=== PATIENT | female | born 1975 | race Caucasian/White ===

== ENCOUNTER → 2017-07-30 11:08 | Outpatient (CLI) | payer MEDICAID, SELFPAY ==
--- NOTE | 2017-07-30 11:08 | MRI_ITS ---
STUDY: MRI LEFT KNEE REASON FOR EXAM: Knee pain and instability. Previous cartilage surgery 21 years ago. TECHNIQUE: Standardized fat and water weighted pulse sequences were obtained in all 3 orthogonal planes. COMPARISON: Radiographs 12/23/2016. FINDINGS: There may be a small subtle horizontal tear of the inferior articular surface of the posterior horn of the medial meniscus, identified only on a single slice (proton-density sagittal image 12). Normal hyaline cartilage of the medial femorotibial compartment. There are small marginal osteophytes of the medial femorotibial compartment. Normal medial femoral condyle and tibial plateau. Normal medial collateral ligamentous complex (MCL). Normal distal semimembranosus, gracilis and semitendinosus tendons. There is attrition of the anterior horn of the lateral meniscus suggestive of partial lateral meniscectomy. There is a small complex tear of the free margin of the posterior horn of the lateral meniscus (proton-density sagittal images 28-30). There is arthrosis of the lateral femorotibial compartment with small marginal osteophytes and partial-thickness chondral loss (T2 sagittal image 17). Normal lateral femoral condyle and tibial plateau. Normal proximal tibiofibular articulation. Normal lateral collateral (fibular) ligament. Normal popliteus tendon. Normal biceps femoris tendon. There is mild intrasubstance mucoid degeneration of the anterior cruciate ligament (T2 sagittal images 12, 13) without focal discontinuity of the ligament. Normal posterior cruciate ligament (PCL). Normal congruent patellofemoral articulation. There is intermediate grade chondromalacia of the inferior aspect of the lateral patellar facet (T2 axial image 10) with a very small subchondral cyst. Normal medial and lateral patellar retinaculum. Normal visualized quadriceps tendon. Normal patellar tendon. There is mild postoperative scarring in Hoffa's fat pad. There is a small joint effusion. The soft tissues are unremarkable. The otherwise visualized osseous structures are unremarkable. MRI/Lower Ext Joint Only (Routine) IMPRESSION: Arthrosis of the lateral femorotibial compartment. Partial lateral meniscectomy with small recurrent tear of the posterior horn of the lateral meniscus. There may be a small subtle medial meniscal tear, identified only on a single slice. Chondromalacia patellae. Small joint effusion. Electronically Signed: Maco Saldaña MD at 13:01 EST Tel , Service support ,
== END ==
PROVIDERS: Visit Provider Orthopaedic Surgery
DX: M23.92 Unspecified internal derangement of left knee (principal)
CPT/HCPCS: 73721

== ENCOUNTER → 2017-08-11 14:00 | Outpatient (CLI) | payer MEDICAID, SELFPAY ==
--- NOTE | 2017-08-11 14:03 | RAD_ITS ---
STUDY: LEG LENGTH SCANOGRAM. REASON FOR EXAM: Female, 42 years old. Left knee pain. TECHNIQUE: Standing views of both lower extremities were performed. COMPARISON: None. FINDINGS: There is no evidence of leg length discrepancy. RAD/Bone Length IMPRESSION: No evidence of leg length discrepancy. Electronically Signed: Lloyd Ruiz MD at 13:39 EST Tel [phone], Service support ,
== END ==
PROVIDERS: Visit Provider Orthopaedic Surgery
DX: M25.562 Pain in left knee (principal)
CPT/HCPCS: 77073

== ENCOUNTER 2017-09-02 10:30 | Observation (INO) | payer MEDICAID, SELFPAY ==
[2017-09-02] VITALS (11 sets, daily range): BP systolic 136–156; BP diastolic 88–103; PULSE 88–130; RESP 16–20; TEMP 36.2–36.8; O2SAT 94–100; BMI 39.7
--- NOTE | 2017-09-02 06:58 | RAD_ITS ---
STUDY: X-RAY - LEFT KNEE REASON FOR EXAM: Female, 42 years old. Recent postoperative left knee. Partial lateral meniscectomy with small recurrent lateral meniscus posterior horn tear. TECHNIQUE: 2 view(s) of the knee. COMPARISON: Intraoperative fluoroscopic spot images left knee 09/02/2017. Correlation leg length study 08/11/2017. FINDINGS: Extensive distal femoral postsurgical changes include lateral metal sideplate with numerous threaded metal cortical screws transfixing distal fibular fracture partially filled with high density widely which appears wider laterally than medially with oblique orientation, appears stable. Fairly severe lateral and moderate medial/patellar femoral compartmental narrowing and moderate subchondral sclerosis noted. Postsurgical soft tissue changes include moderate soft tissue swelling/hematoma and mild subcutaneous emphysema involving lateral compartment near the distal femur. No radiopaque foreign body identified. RAD/Knee 1 or 2 Views IMPRESSION: Postsurgical changes left knee as described. Please see surgeon's operative note for additional details. Electronically Signed: Tano Flood, at 16:04 EDT Tel , Service support ,
[2017-09-02 08:40] LABS: Internal QC Validated? YES +Cl - CLEAR BKGD; Pregnancy, Urine Negative Negative
[2017-09-02] MEDS: oxyCODONE HCl Cr 10 MG Tablet PO (08:47)
[2017-09-02 09:09] LABS: Thyroid Stim Hormone (TSH) 2.99 uIU/mL (0.358-3.74)
--- NOTE | 2017-09-02 09:55 | RAD_ITS ---
STUDY: X-RAY - LEFT KNEE REASON FOR EXAM: Female, 42 years old. Intraoperative assessment TECHNIQUE: Two view(s) of the knee were obtained. COMPARISON: December 23, 2016 FINDINGS: There are a plate and screws along the distal shaft of the femur. There are surgical changes in the distal shaft of the femur. Air is present in the surrounding soft tissues. Fluoroscopy time 39 seconds. Accumulative dose 6.09 mGy. RAD/Knee 1 or 2 Views IMPRESSION: Limited views of the left knee were obtained intraoperatively. Electronically Signed: Kay Enrique MD at 13:48 EDT Tel Direct: [phone], Service support ,
[2017-09-02] MEDS: Cefazolin 2 GM in 0.9% Normal Saline 100 ML IV (11:05)
--- NOTE | 2017-09-02 13:45 | OP.PN_ITS ---
Immediate Post-Op Note Date of Procedure: 09/02/17 Primary Surgeon/Physician: Uday Scherer DO senior analytical chemist: Christi Mayers Pre-Operative Diagnosis: Left knee lateral compartment arthrosis and internal derangement of the knee. Post-Operative Diagnosis: Same as above Surgery/Procedure Performed:: Left knee arthroscopy with abrasion chondroplasty of the lateral femoral condyle, open distal femoral osteotomy Description of Surgical Findings:: See dictation Estimated Blood Loss: 50 Specimen's removed: None Type of Anesthesia:: General ASA Class: ASA1 Normal Healthy Patient - Admit VTE Documentation VTE Present on Admission: No VTE Mechan Device Prophylaxis: SCD's, Knee High SELINA Hose VTE Pharm Prophylaxis ordered?: Yes
--- NOTE | 2017-09-02 13:53 | OP.PCM_ITS ---
Report of Operation Date of Procedure: 09/02/17 Pre-Operative Diagnosis: Left knee lateral compartment arthrosis and internal derangement of the knee. Post-Operative Diagnosis: Same as above Surgery/Procedure Performed:: Left knee arthroscopy with abrasion chondroplasty of the lateral femoral condyle, open distal femoral osteotomy Description of Surgical Findings:: 42-year-old female with valgus malalignment and degenerative arthrosis of the lateral compartment. Having failed conservative measures my recommendation was for diagnostic knee scope evaluation lateral compartment and probable distal femoral osteotomy with cartilage catholic procedure in a staged timeframe. Patient agreed to the aforementioned procedure having failed conservative measures. She is met in the holding area with a left lower extremity was marked and identified by the with surgeon. Patient was taken to the operating room in satisfactory condition with somewhat to place to identify patient operative procedure and limb. Patient received 2 g of Ancef. A well-placed tourniquet to left proximal thigh. Patient was then prepped and draped in the usual fashion. Left lower extremity was elevated Esmarch used for exsanguination and tourniquet was increased to 250 mmHg for roughly 90 minutes. Initial diagnostic scope was undertaken. Anterolateral portal was established and we entered into the intra-articular space. There was no return effusion. Superior lateral outflow portal was then created. Diagnostic scope should the patient have grade 2 and grade III chondromalacia globally around the patella but no significant loose fragments could be appreciated. Much of it was fissure formation. Her trochlea showed grade 2 changes. Removed in the lateral compartment and you could see a lateral osteophyte off the femoral condyle although mild. Her popliteal hiatus was otherwise normal. Then moved in the medial compartment established anteromedial portal. Diagnostic evaluation the medial compartment showed the meniscus to be pristine. She had grade 2 changes across the femoral condyle and grade 1 changes across the tibial plateau. Otherwise the overall continuity the cartilage is well- maintained. The patient showed a partial ACL disruption to the anterior bundle but the overall continuity of the fibers was intact and so was preserved. The loose fragments were gently debrided using mechanical shaver. We then moved to the lateral compartment. The patient showed a large area of cartilage loss from around 15? knee flexion to about 70? of knee flexion. It really was moving from the middle the lateral third of the area. I measured 1 large focal area to be roughly 20 mm from superior to inferior and about 15 mm from medial to lateral. The loose edges were debrided. I then performed a abrasion chondroplasty through that area to try to stimulate some new cartilage formation. I did not want to overly perform an aggressive procedure as I felt the lesion size was too large for microfracture and the cartilage mobley relatively thin to the lateral aspect of the condyle not providing a inadequate contained lesion. Her meniscus was otherwise stable and showed no significant pathology. The popliteal hiatus was normal. The patient showed grade III chondromalacia to the central posterior aspect of the lateral femoral condyle. This was gently debrided of any loose cartilage as well. Upon completion of the scope the scope was retracted and the portal sites closed with 3-0 nylon. We then turned our attention to the open distal femoral osteotomy. Patient had a longitudinal incision made from the lateral condyle moving proximal. The IT band was identified and longitudinally split. And the vastus lateralis was then peeled off of the remnant portion of the IT band and then elevated in a subperiosteal fashion from proximal to distal. We used a quadriceps protecting Hohmann superiorly and a secondary protective R Alexander inferiorly in anticipation of our femoral cut. Plate was temporarily identified to be in adequate position distally to allow for appropriate bone coverage and to avoid the osteotomy being near the patellofemoral joint of the trochlea. Initial guidewire was passed towards the medial epicondyle using standard technique. Parallel wire was then placed through the cutting plate. We then performed our standard osteotomy using sagittal saw initially and then completing it using standard osteotome technique with C-arm visualization the AP plane. Upon completion of our cut the osteotomy yelena was then introduced to gently plastic deformation the medial cortex. We dilated to roughly 7 mm which was my preoperative templating. At that point time a fresh frozen tricortical wedge was prepared in order to place within our defect site and again was roughly 7 mm in overall diameter. This allowed for maintenance of the osteotomy and subsequent placement of the plate using standard AO technique. It was fixed distally with cortical screws with locking technique and then proximally with bicortical screw fixation. We placed one locking screw within the center hole which allowed for a 90? plate angle. Upon completion and evaluation of both AP and lateral planes, was found in good position osteotomy site was well aligned and we subsequently placed calcium phosphate cement within her cortical defect site at the osteotomy under C-arm visualization. This was allowed to cure using standard technique. The wound was then copiously irrigated multiple times throughout the procedure. We then reapproximated the IT band with [id number] technique using 0 Vicryl.. Soft tissues were reapproximated first deep to the fat layer with 0 Vicryl. Subcu tissue with 2-0 Vicryl running subicular Monocryl and Dermabond application. Standard dressing was then applied. Tourniquet was let down during final closure at 90 minutes. I was scrubbed and available time during our procedure. We had no drains or complications. Implants included the Arthrex contour plate distal first femoral osteotomy system. Again we used a standard screw fixation through their system. Patient be admitted floor for 24 hours of IV antibiotics appropriate IV and p.o. pain medication. Patient will be touchdown weightbearing for 4 weeks partial weightbearing for 4 and then advanced from there. Brace is locked in extension at this time. Any major issues please contact me. child development teacher: Christi Mayers Type of Anesthesia:: General Specimen's removed: None Estimated Blood Loss (mL): 50 Grafts/Implants Used: Arthrex distal femoral osteotomy contour plate system - Complications none - Admit VTE Documentation VTE Present on Admission: No VTE Mechan Device Prophylaxis: SCD's, Knee High SELINA Hose VTE Pharm Prophylaxis ordered?: Yes
[2017-09-02] MEDS: Ketorolac 15 MG/ML Vial IV (14:27)
[2017-09-02] MEDS: Venlafaxine XR 150 MG Capsule PO (17:09)
[2017-09-02] MEDS: Gabapentin 300 MG Capsule PO (17:09)
[2017-09-02] MEDS: oxyCODONE 5 MG Tablet 10 MG PO (18:08)
[2017-09-02] MEDS: Cefazolin 1 GM/50 ML BAG IV (18:08)
[2017-09-02] MEDS: 0.9% NaCl Peripheral Flush Adult/Peds IV (18:08)
[2017-09-02] MEDS: Budesonide Respules 0.5 MG/2 ML AMPUL.NEB. INHALATION (19:59)
[2017-09-02] MEDS: Albuterol 2.5 MG/3 ML VIAL.NEB. INHALATION (19:59)
[2017-09-02] MEDS: Montelukast 10 MG Tablet PO (21:10)
[2017-09-02] MEDS: Aspirin 325 MG Tablet PO (21:10)
[2017-09-02] MEDS: Acetaminophen 325 MG Tablet 650 MG PO (21:15)
--- NOTE | 2017-09-02 22:17 | NURSING ---
pt reported that scopolamine patch removed per pt request. she said it is very itchy
[2017-09-03] MEDS: oxyCODONE 5 MG Tablet 10 MG PO ×2 (01:00→11:18)
--- NOTE | 2017-09-03 01:02 | NURSING ---
pt only wants 1 oxyir
[2017-09-03 02:10] VITALS: BP 134/87; PULSE 121; RESP 17; TEMP 36.4; O2SAT 96
[2017-09-03] MEDS: Cefazolin 1 GM/50 ML BAG IV (02:31)
[2017-09-03] MEDS: Morphine 2 MG/ML Syringe IV (02:36)
[2017-09-03] MEDS: Levothyroxine 100 MCG Tablet PO (05:41)
[2017-09-03] MEDS: Acetaminophen 325 MG Tablet 650 MG PO (05:43)
[2017-09-03 07:01] VITALS: PULSE 112; RESP 20; O2SAT 96
[2017-09-03] MEDS: Budesonide Respules 0.5 MG/2 ML AMPUL.NEB. INHALATION (07:01)
[2017-09-03] MEDS: Albuterol 2.5 MG/3 ML VIAL.NEB. INHALATION (07:01)
--- NOTE | 2017-09-03 07:55 | PCM.PN.ORT ---
Subjective: Postop day 1 status post left knee arthroscopy with an open distal femoral osteotomy for lateral compartment arthrosis. Patient actually doing very well at this time. Patient currently eating and upright. Patient states that she has been to the bathroom and upright with her walker. Patient did have a block so I do not know if it is a product of the anesthetic block or if she is just really doing that well. No other fevers chills nausea vomiting chest pain or shortness of breath. Patient willing to go home at this time when meets criteria. - Physical Exam General: Alert, Oriented x3, Cooperative, No apparent distress Musculoskeletal: - - Distally neurovascular intact. EHL anterior gastrocsoleus peroneals 5 out of 5. Dressing and brace in place. Hardware otherwise well seated well-placed. Lab values remain stable. Vital signs remained stable. sCDs and teds in place. Vital Signs Temp Pulse Resp BP Pulse Ox 97.5 F L 121 H 17 134/87 H 96 09/03/17 02:10 09/03/17 02:10 09/03/17 02:10 09/03/17 02:10 09/03/17 02:10 Oxygen Flow Rate (L/min) 1 Oxygen Delivery Method Room Air Weight: 269 lb 6.478 oz Body Mass Index (BMI) 39.7 Intake and Output for Last 24 Hours 09/01/17 09/02/17 09/03/17 23:59 23:59 23:59 Intake Total 2300 / 2300 1650 / 1650 Balance 2300 / 2300 1650 / 1650 Laboratory Tests Past 24 Hrs 09/02/17 09/02/17 08:20 08:38 TSH 2.99 Urine Test Negative Medical Necessity - Tobacco Use Smoking Status: Never smoker Assessment/Plan Assessment: After orthopedics status post left knee arthroscopy and subsequent open distal femoral osteotomy for lateral compartment arthrosis. Patient is doing well. Plan: At this point time patient appears to be doing very well. Await physical therapy evaluation for mobilization. Patient is touchdown weightbearing ?4 weeks. This is been explained to the patient and she was aware prior to operative intervention. I did tell the patient that she needs to be cautious that the block may wear off and she has increased pain. My recommendation is that she continue to take her pain medication every 4-6 hours of that is in her system so that when the block does start to proceed she is not behind the curve in terms of pain management. Patient otherwise is appropriate for discharge when meets criteria. Her medications we sent down to the [place] pharmacy for either pickup or delivery. Patient will follow me in 2 weeks. Any major issues please contact me.
--- NOTE | 2017-09-03 07:58 | PCM.DC.ORTHO ---
Discharge Activity: Return to Normal Activity, May not drive while taking narcotic pain medications., May Shower, Use Walker May shower in (days): 1 May resume sexual activity in: 8 weeks Ice area for (Minutes): 20 - Use ice machine as needed Weight Bearing Status: Toe touch weight bearing Keep extremity elevated above heart level: Left Leg Additional Activity Instructions:: May remove brace to bend knee to 90? 3 times per day passively. Patient may keep brace on and simply open it to 90? if desired. Brace will then need to be locked out remaining. Patient may shower with brace off but needs to be very cautious with slippery prevention. Call your doctor if your incision/area has: Continuous Slow Oozing, Sudden Increased Bleeding, Increased Pain/ Swelling, Increased Redness, Foul Smelling Discharge, Swelling at the incision site Call your doctor if you observe: Fever of 101 or Higher, Coldness, Increased Pain, Numbness or Tingling, Change in Color, Inability to urinate, Inability to have a bowel movement, Using more than one pad per hour, Shortness of breath, Dizziness, Fainting spells, Swelling in the ankles, Chest pain, Prolonged hiccoughing, Increased palpitations (irregular heartbeat), Calf discomfort, Uncontrolled pain Suture Line Care: Avoid Pulling/Pushing, Avoid Pinching/Bending Change Dressing in (Days):: 1 Remove Dressing in (days):: 1 Cleanse incision/area with: Soap & Water Additional Dressing/Incision Instructions:: Remove dressing to shower postop day 2. Do not submerge wound. May shower however and get wound wet. Replace Nikolay wrap as long as there is no drainage. Please simple gauze pad or ABD pad over drainage area. Wash hands prior to touching wound. Do not let animals touch the wound. Allergies/Adverse Reactions: Allergies No Known Allergies Allergy (Verified 08/26/17 13:26) Medications to take at Discharge Albuterol Inhaler [Ventolin Hfa (SP)] 1 - 2 puff INHALATION Q4H PRN PRN 03/20/17 Celecoxib [Celebrex] 100 mg PO BID 03/20/17 Fluticasone/Salmeterol [Advair 250/50 Mcg Diskus] 1 puff INHALATION BID 03/20/17 Gabapentin [Neurontin] 300 mg PO BID 03/20/17 Levothyroxine [Synthroid] 100 mcg PO DAILY 03/20/17 Loratadine [Claritin] 10 mg PO DAILY 03/20/17 Montelukast [Singulair] 10 mg PO QHS 03/20/17 Omeprazole 40 mg PO QHS 03/20/17 Venlafaxine XR [Effexor Xr] 150 mg PO DAILY 03/20/17 Docusate Sodium [Colace] 100 mg PO BID PRN PRN #10 cap 03/25/17 Hydrocodone Bitart/Apap 5-325 [[place] 5/325] 1 - 2 tab PO Q6H PRN PRN #60 tab 03/25/17 Cyclobenzaprine [Flexeril] 10 mg PO QHS 08/26/17 Aspirin E.C. [Ecotrin] 325 mg PO BID #30 tablet 09/02/17 Docusate Sodium [Colace] 100 mg PO BID PRN PRN #10 capsule 09/02/17 Oxycodone HCl/Acetaminophen [Percocet 5/325] 1 - 2 tablet PO Q4H PRN PRN #60 tablet 09/02/17 proMETHazine tablet [Phenergan] 25 mg PO Q4H PRN PRN #10 tablet 09/02/17 The following prescriptions were given: Oxycodone HCl/Acetaminophen [Percocet 5/325] 1 - 2 tablet PO Q4H PRN PRN #60 tablet PRN Reason: Pain proMETHazine tablet [Phenergan] 25 mg PO Q4H PRN PRN #10 tablet PRN Reason: Nausea Docusate Sodium [Colace] 100 mg PO BID PRN PRN #10 capsule PRN Reason: Constipation Aspirin E.C. [Ecotrin] 325 mg PO BID #30 tablet Primary Care Physician: Care Physician,No Primary [Primary Care Provider] - Please Follow Up With: Uday Scherer DO When: Call [facility] for appointment for 2 weeks. Proposed Discharge Date: 09/03/17
--- NOTE | 2017-09-03 08:01 | DCINST_ITS ---
Discharge Activity: Return to Normal Activity, May not drive while taking narcotic pain medications., May Shower, Use Walker May shower in (days): 1 May resume sexual activity in: 8 weeks Ice area for (Minutes): 20 - Use ice machine as needed Weight Bearing Status: Toe touch weight bearing Keep extremity elevated above heart level: Left Leg Additional Activity Instructions:: May remove brace to bend knee to 90? 3 times per day passively. Patient may keep brace on and simply open it to 90? if desired. Brace will then need to be locked out remaining. Patient may shower with brace off but needs to be very cautious with slippery prevention. Call your doctor if your incision/area has: Continuous Slow Oozing, Sudden Increased Bleeding, Increased Pain/ Swelling, Increased Redness, Foul Smelling Discharge, Swelling at the incision site Call your doctor if you observe: Fever of 101 or Higher, Coldness, Increased Pain, Numbness or Tingling, Change in Color, Inability to urinate, Inability to have a bowel movement, Using more than one pad per hour, Shortness of breath, Dizziness, Fainting spells, Swelling in the ankles, Chest pain, Prolonged hiccoughing, Increased palpitations (irregular heartbeat), Calf discomfort, Uncontrolled pain Suture Line Care: Avoid Pulling/Pushing, Avoid Pinching/Bending Change Dressing in (Days):: 1 Remove Dressing in (days):: 1 Cleanse incision/area with: Soap & Water Additional Dressing/Incision Instructions:: Remove dressing to shower postop day 2. Do not submerge wound. May shower however and get wound wet. Replace Nikolay wrap as long as there is no drainage. Please simple gauze pad or ABD pad over drainage area. Wash hands prior to touching wound. Do not let animals touch the wound. Allergies/Adverse Reactions: Allergies No Known Allergies Allergy (Verified 08/26/17 13:26) Medications to take at Discharge Albuterol Inhaler [Ventolin Hfa (SP)] 1 - 2 puff INHALATION Q4H PRN PRN Celecoxib [Celebrex] 100 mg PO BID 03/20/17 Fluticasone/Salmeterol [Advair 250/50 Mcg Diskus] 1 puff INHALATION BID Gabapentin [Neurontin] 300 mg PO BID 03/20/17 Levothyroxine [Synthroid] 100 mcg PO DAILY 03/20/17 Loratadine [Claritin] 10 mg PO DAILY 03/20/17 Montelukast [Singulair] 10 mg PO QHS 03/20/17 Omeprazole 40 mg PO QHS 03/20/17 Venlafaxine XR [Effexor Xr] 150 mg PO DAILY 03/20/17 Docusate Sodium [Colace] 100 mg PO BID PRN PRN #10 cap 03/25/17 Hydrocodone Bitart/Apap 5-325 [[place] 5/325] 1 - 2 tab PO Q6H PRN PRN #60 tab Cyclobenzaprine [Flexeril] 10 mg PO QHS 08/26/17 Aspirin E.C. [Ecotrin] 325 mg PO BID #30 tablet 09/02/17 Docusate Sodium [Colace] 100 mg PO BID PRN PRN #10 capsule 09/02/17 Oxycodone HCl/Acetaminophen [Percocet 5/325] 1 - 2 tablet PO Q4H PRN PRN #60 tablet 09/02/17 proMETHazine tablet [Phenergan] 25 mg PO Q4H PRN PRN #10 tablet 09/02/17 The following prescriptions were given: Oxycodone HCl/Acetaminophen [Percocet 5/325] 1 - 2 tablet PO Q4H PRN PRN #60 tablet PRN Reason: Pain proMETHazine tablet [Phenergan] 25 mg PO Q4H PRN PRN #10 tablet PRN Reason: Nausea Docusate Sodium [Colace] 100 mg PO BID PRN PRN #10 capsule PRN Reason: Constipation Aspirin E.C. [Ecotrin] 325 mg PO BID #30 tablet Primary Care Physician: Care Physician,No Primary [Primary Care Provider] - Please Follow Up With: Uday Scherer DO When: Call [facility] for appointment for 2 weeks. Proposed Discharge Date: 09/03/17
[2017-09-03 08:33] VITALS: BP 129/81; PULSE 98; RESP 18; TEMP 37; O2SAT 98
[2017-09-03] MEDS: Loratadine 10 MG Tablet PO (08:46)
[2017-09-03] MEDS: Aspirin 325 MG Tablet PO (08:46)
[2017-09-03] MEDS: Pantoprazole Sodium 40 MG Tablet PO (08:46)
[2017-09-03] MEDS: Gabapentin 300 MG Capsule PO (08:47)
--- NOTE | 2017-09-03 09:45 | CASEMGMT ---
CRISTY JANG Face to Face with patient for initial transition planning/care coordination assessment. CRISTY JANG introduced self and role at [facility]. Patient lying in bed, alert and oriented, at bedside. Patient willing to participate in assessment and is able to answer all questions appropriately. Care providers, pharmacy, and demographics verified. See link attached. Patient wishes to discharge home, denies need for home health at this time. Patient states she has no further needs or concerns at this time. CRISTY JANG called and requested script for crutches and referrral sent to [facility] [place]. CM to follow for discharge planning needs that may arise. Disposition Plan: Patient to discharge home with crutches, family support, and follow-up plans in place.
== END 2017-09-03 11:20 | disposition home or self-care (01) ==
LOC: MS3 10:31
PROVIDERS: Anesthesiology; Admitting Provider Orthopaedic Surgery; Visit Provider Orthopaedic Surgery
PROC: (CPT 29870; principal; 2017-09-02 09:30)
DX: M23.8X2 Other internal derangements of left knee (principal); M17.12 Unilateral primary osteoarthritis, left knee; M94.262 Chondromalacia, left knee; K21.9 Gastro-esophageal reflux disease without esophagitis; F41.9 Anxiety disorder, unspecified; F32.9 Major depressive disorder, single episode, unspecified; Z86.718 Personal history of other venous thrombosis and embolism; Z79.899 Other long term (current) drug therapy; J45.909 Unspecified asthma, uncomplicated; E07.9 Disorder of thyroid, unspecified; Q79.6 Ehlers-Danlos syndromes; G89.29 Other chronic pain
CPT/HCPCS: 27450; 29879; 64447; 73560; 76000; 81025; 84443; 94640; 96365; 96366; 96375; 99218; J7120; A4216; G0378; G0379; J2405

== ENCOUNTER → 2017-09-15 13:00 | Outpatient (CLI) | payer MEDICAID, SELFPAY ==
--- NOTE | 2017-09-15 13:02 | RAD_ITS ---
STUDY: X-RAY - LEFT KNEE REASON FOR EXAM: Female, 42 years old. Pain, post op 2 weeks TECHNIQUE: 4 view(s) of the knee. COMPARISON: 3.27.18 FINDINGS: There is a metal sideplate transfixing the distal femur. There are cortical screws holding the plate in place. Healing fracture of the distal femur. Normal visualized proximal tibia and fibula. Normal proximal tibiofibular articulation. Normal medial femorotibial compartment. There is moderate degenerative arthrosis of the lateral femorotibial compartment with moderate joint space narrowing. Normal patellofemoral articulation. The soft tissue structures are unremarkable. 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 Healing fracture of the distal femur. Orthopedic hardware appears intact. Electronically Signed: Mario Lazcano MD at 17:04 EDT , Service support ,
== END ==
PROVIDERS: Visit Provider Orthopaedic Surgery
DX: M25.562 Pain in left knee (principal)
CPT/HCPCS: 73564

== ENCOUNTER → 2017-10-01 12:51 | Outpatient (CLI) | payer MEDICAID, SELFPAY ==
--- NOTE | 2017-10-01 12:53 | RAD_ITS ---
STUDY: X-RAY - LEFT KNEE REASON FOR EXAM: Female, 42 years old. Knee pain. Injury. Previous surgery. TECHNIQUE: 3 view(s) of the knee. COMPARISON: 09/15/2017. FINDINGS: No definite acute abnormality. Stable appearance of distal femoral osteotomy with compression plate and screws along the lateral distal femoral metaphysis. Fragments are in anatomic alignment and position. RAD/Knee 4 or More Views IMPRESSION: Stable postsurgical changes and no definite acute abnormality. Electronically Signed: Evens Peña MD at 19:53 EDT , Service support ,
== END ==
PROVIDERS: Visit Provider Orthopaedic Surgery
DX: M25.562 Pain in left knee (principal)
CPT/HCPCS: 73564

== ENCOUNTER → 2017-10-15 10:32 | Outpatient (CLI) | payer MEDICAID, SELFPAY ==
--- NOTE | 2017-10-15 10:34 | RAD_ITS ---
STUDY: X-RAY - LEFT KNEE REASON FOR EXAM: Female, 42 years old. POST OP L KNEE OSTEOTOMY TECHNIQUE: 4 view(s) of the knee. COMPARISON: None. FINDINGS: There is a metal sideplate transfixing the distal femur. There are cortical screws holding the plate in place. External fixator has been removed. Alignment is unchanged. Distal femoral osteotomy changes noted. Normal visualized proximal tibia and fibula. Normal proximal tibiofibular articulation. Normal medial femorotibial compartment. Normal lateral femorotibial compartment. Normal patellofemoral articulation. The soft tissue structures are unremarkable. RAD/Knee 4 or More Views IMPRESSION: Postoperative changes as above. There are no acute findings. Electronically Signed: Mario Lazcano MD at 16:49 EDT , Service support ,
== END ==
PROVIDERS: Visit Provider Orthopaedic Surgery
DX: M25.562 Pain in left knee (principal)
CPT/HCPCS: 73564

== ENCOUNTER → 2017-10-27 13:36 | Outpatient (CLI) | payer MEDICAID, SELFPAY ==
--- NOTE | 2017-10-27 13:38 | RAD_ITS ---
XR Knee Complete 4 Views or More INDICATION: post op COMPARISON: October 15, 2017 TECHNIQUE: 4 views of the left knee FINDINGS: There is redemonstration of a distal femoral osteotomy with filling of the osteotomy defect with bone graft material. Lateral screw and plate fixation of the distal femur is noted. The lateral joint compartment is decreased with marginal osteophyte formation, unchanged. The osseous structures are otherwise intact and well aligned. RAD/Knee 4 or More Views IMPRESSION: Status post left distal femoral osteotomy with expected bone grafting and hardware. Degenerative changes at the lateral joint compartment with joint space narrowing and marginal osteophyte formation, unchanged. at 0041 Reported and signed by: Ai De La Vega MD Electronically Signed: Ai De La Vega MD at 0:39 EDT Tel , Service support ,
== END ==
PROVIDERS: Visit Provider Orthopaedic Surgery
DX: M25.562 Pain in left knee (principal)
CPT/HCPCS: 73564

== ENCOUNTER → 2017-12-15 12:48 | Outpatient (CLI) | payer MEDICAID, SELFPAY ==
--- NOTE | 2017-12-15 12:50 | RAD_ITS ---
STUDY: X-RAY BONE LENGTH SURVEY/SCANOGRAM BILATERAL LOWER LEGS REASON FOR EXAM: Female, 42 years old. Leg length discrepancy. Pain. TECHNIQUE: CT scanogram, bilateral lower extremities from the superior margin of the femoral heads through the ankles, in the frontal projection. COMPARISON: X-ray left knee 10/27/2017, 09/02/2017. X-ray left hip 03/05/2017. Prior leg length scanogram of 08/11/2017. FINDINGS: Since the bone length survey of 08/11/2017, the patient now has postsurgical changes of the left distal femur, with plate and screw fixation. The surgical construct appears intact. In each knee, there is mild marginal osteophytic lipping of both the medial and lateral compartments somewhat more prominent in the lateral compartment of the left knee. No significant hip joint degenerative changes are apparent. No significant ankle joint degenerative changes are apparent. Right femur: 50 cm Right tibia: 39.75 Right total length from femoral head to tibial plafond: 89.5 Left femur: 50 cm Left tibia: 39.5 Left total length from femoral head to the tibial plafond: 89.5 RAD/Bone Length IMPRESSION: There is no significant overall leg length discrepancy. Electronically Signed: Sourav Currie, at 15:02 EDT Tel , Service support ,
== END ==
PROVIDERS: Visit Provider Orthopaedic Surgery
DX: M25.562 Pain in left knee (principal)
CPT/HCPCS: 77073

== ENCOUNTER → 2018-01-27 10:48 | Outpatient (CLI) | payer MEDICAID, SELFPAY | PROVIDERS: Visit Provider Orthopaedic Surgery | DX: M25.562 Pain in left knee (principal) | CPT/HCPCS: 73564 ==

== ENCOUNTER → 2018-05-07 10:43 | Outpatient (CLI) | payer MEDICAID, SELFPAY ==
--- NOTE | 2018-05-07 10:45 | RAD_ITS ---
HISTORY: PainRAD - Hip COMPARISON: None FINDINGS: XR Hip Unilateral with Pelvis when performed; 2-3 Views: The sacroiliac and hip joints appear preserved. No fracture or acute disease. No bony erosions. As visualized, the soft tissues are negative. Laminectomy with L5-S1 surgical fusion. RAD/HIP, UNI W/ Pelvis 2-3 Views IMPRESSION: 1. Normal left hip. 2. Laminectomy with L5-S1 surgical fusion. at 0700 Reported and signed by: Milton Torres MD Electronically Signed: Milton Torres, at 6:58 EST Tel , Service support ,
--- OUTSIDE RECORDS SUMMARY | 2018-07-02 13:02 | XMS RPT_ITS ---
:1975 Author Organization OHIP Support Name Relationship Address Phone DANNY GONZÁLES Unavailable [address] + [place] [address] D Unavailable Unavailable Unavailable DANNY GONZÁLES Unavailable [address] + [place] [address] DANNY GONZÁLES Unavailable [address] + [place] [address] D Unavailable Unavailable Unavailable DANNY GONZÁLES Unavailable [address] + [place] [address] D Unavailable Unavailable Unavailable DANNY GONZÁLES Unavailable [address] + [place] [address] DANNY GONZÁLES Unavailable [address] + [place] [address] DANNY GONZÁLES Unavailable [address] + [place] [address] DANNY GONZÁLES Unavailable [address] + [place] [address] DANNY GONZÁLES Unavailable [address] + [place] [address] DANNY GONZÁLES Unavailable [address] + [place] [address] DANNY GONZÁLES Unavailable [address] + [place] [address] DANNY GONZÁLES Unavailable [address] + [place] [address] DANNY GONZÁLES Unavailable [address] + [place] [address] DANNY GONZÁLES Unavailable [address] + [place] [address] NIVIA DANNY Unavailable [address] + [place] [address] D Unavailable Unavailable Unavailable NIVIA DANNY Unavailable [address] + [place] [address] D Unavailable Unavailable Unavailable NIVIA, DANNY Unavailable [address] + [place] [address] NIVIA DANNY Unavailable [address] + [place] [address] NIVIA, DANNY Unavailable [address] + [place] [address] NIVIA DANNY Unavailable [address] + [place] [address] D Unavailable Unavailable Unavailable NIVIA, DANNY Unavailable [address] + [place] [address] D Unavailable Unavailable Unavailable NIVIA DANNY Unavailable [address] + [place] [address] NIVIA DANNY Unavailable [address] + [place] [address] NIVIA DANNY Unavailable [address] + [place] [address] D Unavailable Unavailable Unavailable NIVIA DANNY Unavailable [address] + [place] [address] D Unavailable Unavailable Unavailable NIVIA DANNY Unavailable [address] + [place] [address] D Unavailable Unavailable Unavailable NIVIA DANNY Unavailable [address] + [place] [address] D Unavailable Unavailable Unavailable NIVIA DANNY Unavailable [address] + [place] [address] D Unavailable Unavailable Unavailable NIVIA DANNY Unavailable [address] + [place] [address] D Unavailable Unavailable Unavailable NIVIA DANNY Unavailable [address] + [place] [address] NIVIA DANNY Unavailable [address] + [place] [address] D Unavailable Unavailable Unavailable NIVIA DANNY Unavailable [address] + [place] [address] D Unavailable Unavailable Unavailable NIVIA, DANNY Unavailable [address] + [place] [address] D Unavailable Unavailable Unavailable NIVIA, DANNY Unavailable [address] + [place] [address] D Unavailable Unavailable Unavailable NIVIA, DANNY Unavailable [address] + [place] [address] D Unavailable Unavailable Unavailable NIVIA, DANNY Unavailable [address] + [place] [address] D Unavailable Unavailable Unavailable NIVIA, DANNY Unavailable [address] + [place] [address] D Unavailable Unavailable Unavailable NIVIA, DANNY Unavailable [address] + [place] [address] NIVIA, DANNY Unavailable [address] + [place] [address] NIVIA, DANNY Unavailable [address] + [place] [address] D Unavailable Unavailable Unavailable NIVIA, DANNY Unavailable [address] + [place] [address] NIVIA, DANNY Unavailable [address] + [place] [address] NIVIA, DANNY Unavailable [address] + [place] [address] NIVIA, DANNY Unavailable [address] + [place] [address] NIVIA, DANNY Unavailable [address] + [place] [address] NIVIA, DANNY Unavailable [address] + [place] [address] D Unavailable Unavailable Unavailable NIVIA, DANNY Unavailable [address] + [place] [address] NIVIA, DANNY Unavailable [address] + [place] [address] D Unavailable Unavailable Unavailable NIVIA, DANNY Unavailable [address] + [facility] [place] [address] Care Team Providers Name Role Phone DANNY JOHNSON Attending Unavailable SHABNAM, LOIS Primary Care Unavailable DANNY JOHNSON Attending Unavailable SHABNAM, LOIS Primary Care Unavailable DARIEL LI Attending Unavailable [facility], [facility] Primary Care Unavailable AMIRNENI, HANSEL FOWLER Attending Unavailable CROUCH, [facility] Primary Care Unavailable VIAU, DANNY CAMACHO Attending Unavailable CROUCH, [facility] Primary Care Unavailable CROUCH, DARIELEFRAIN INGRAM Attending Unavailable CROUCH, [facility] Primary Care Unavailable AMIRNENI, HANSEL FOWLER Attending Unavailable CROUCH, [facility] Primary Care Unavailable VIAU, DANNY CAMACHO Attending Unavailable CROUCH, [facility] Primary Care Unavailable VIAU, DANNY CAMACHO Attending Unavailable CROUCH, [facility] Primary Care Unavailable VIAU, DANNY CAMACHO Attending Unavailable CROUCH, [facility] Primary Care Unavailable CROUCH, DARIEL JUAN JOSE Attending Unavailable CROUCH, [facility] Primary Care Unavailable VIAU, DANNY CAMACHO Attending Unavailable CROUCH, [facility] Primary Care Unavailable VIAU, DANNY CAMACHO Attending Unavailable CROUCH, [facility] Primary Care Unavailable CROUCH, DARIEL JUAN JOSE Attending Unavailable CROUCH, [facility] Primary Care Unavailable VIAU, DANNY CAMACHO Attending Unavailable CROUCH, [facility] Primary Care Unavailable VIAU, DANNY CAMACHO Attending Unavailable CROUCH, [facility] Primary Care Unavailable Gilmer DO, Danny S Admitting Unavailable Gilmer DO, Danny S Attending Unavailable Amirneni, Dr. Hansel Espinoza Admitting Unavailable Amirneni, Dr. Hansel Espinoza Attending Unavailable Viau, Dr. Danny Jaramillo Attending Unavailable Viau, Dr. Danny Jaramillo Admitting Unavailable Viau, Dr. Danny Jaramillo Admitting Unavailable Viau, Dr. Danny Jaramillo Attending Unavailable Amirneni, Dr. Hansel Espinoza Admitting Unavailable Amirneni, Dr. Hansel Espinoza Attending Unavailable Menan, Dr. Dariel Griffin Admitting Unavailable Menan, Dr. Dariel Griffin Attending Unavailable Gilmer DO, Danny S Admitting Unavailable Gilmer DO, Danny S Attending Unavailable Menan, Dr. Dariel Griffin Admitting Unavailable Menan, Dr. Dariel Griffin Attending Unavailable Viau, Dr. Danny Jaramillo Attending Unavailable Viau, Dr. Danny Jaramillo Admitting Unavailable Viau, Dr. Danny Jaramillo Attending Unavailable Viau, Dr. Danny Jaramillo Admitting Unavailable VIAU, DANNY Jaramillo Attending Unavailable VIAU, DANNY Jaramillo Referring Unavailable SEBASTIAN MARROQUIN Primary Care Unavailable Danny Scherer Attending Unavailable DOCTOR, OUT OF TOWN Referring Unavailable SEBASTIAN MARROQUIN Primary Care Unavailable Danny Scherer Attending Unavailable Primay Care Physicia, No Primary Care Unavailable Gilmer, Danny Attending Unavailable Primay Care Physicia, No Referring Unavailable Primay Care Physicia, No Primary Care Unavailable Gilmer, Danny Attending Unavailable Primay Care Physicia, No Primary Care Unavailable Gilmer, Danny Attending Unavailable Primay Care Physicia, No Primary Care Unavailable Gilmer, Danny Referring Unavailable Danny Scherer Admitting Unavailable Gilmer, Danny Attending Unavailable Gilmer, Danny Referring Unavailable Primay Care Physicia, No Primary Care Unavailable Danny Scherer Consulting Unavailable Gilmer, Danny Admitting Unavailable Gilmer, Danny Attending Unavailable Gilmer, Danny Referring Unavailable Primay Care Physicia, No Primary Care Unavailable Danny Scherer Consulting Unavailable Gilmer, Danny Attending Unavailable Primay Care Physicia, No Referring Unavailable Primay Care Physicia, No Primary Care Unavailable Gilmer, Danny Attending Unavailable Gilmer, Danny Referring Unavailable Primay Care Physicia, No Primary Care Unavailable Gilmer, Danny Attending Unavailable Primay Care Physicia, No Referring Unavailable Primay Care Physicia, No Primary Care Unavailable Gilmer, Danny Attending Unavailable Gilmer, Danny Referring Unavailable Primay Care Physicia, No Primary Care Unavailable Danny Scherer Attending Unavailable Primay Care Physicia, No Referring Unavailable Primay Care Physicia, No Primary Care Unavailable Gilmer, Danny Attending Unavailable Gilmer, Danny Referring Unavailable Primay Care Physicia, No Primary Care Unavailable Gilmer, Danny Attending Unavailable Primay Care Physicia, No Referring Unavailable Primay Care Physicia, No Primary Care Unavailable Gilmer, Danny Attending Unavailable Gilmer, Danny Referring Unavailable Primay Care Physicia, No Primary Care Unavailable Gilmer, Danny Attending Unavailable Primay Care Physicia, No Referring Unavailable Primay Care Physicia, No Primary Care Unavailable Danny Scherer Attending Unavailable Danny Scherer Referring Unavailable SEBASTIAN MARROQUIN Primary Care Unavailable Emily Lopez Attending Unavailable DOCTOR, OUT OF TOWN Referring Unavailable SEBASTIAN MARROQUIN Primary Care Unavailable Emily Lopez Attending Unavailable Jessica, Emily Referring Unavailable SEBASTIAN MARROQUIN Primary Care Unavailable [place] Cam Attending Unavailable DOCTOR, OUT OF TOWN Referring Unavailable [place] Cam Attending Unavailable [place] Cam Referring Unavailable SEBASTIAN MARROQUIN Primary Care Unavailable Danny Scherer Attending Unavailable DOCTOR, OUT OF TOWN Referring Unavailable PROBLEMS PROBLEMS DATE TYPE CONDITION / CODE ATTENDING STATUS SOURCE 05/14/2018 Admitting Other intervertebral DANNY JOHNSON Active [facility] diagnosis disc degeneration, JANICE Three lumbar region / Repository M51.36(ICD-10) 05/08/2018 Unknown M25.552 - Pain in [place] Cam Active Kevin left hip / Community M25.552(ICD-10) Hospital Repository 04/29/2018 Admitting Other muscle spasm / CROUCH, Active [facility] diagnosis M62.838(ICD-10) DARIEL INGRAM Effie Repository 03/17/2018 Admitting Low back pain / VIAUDANNY [facility] diagnosis M54.5(ICD-10) JANICE Three Repository 02/11/2018 Admitting Pain in thoracic VIAU, DANNY [facility] diagnosis spine / JANICE Effie M54.6(ICD-10) Repository 02/05/2018 Admitting Postlaminectomy VIAU, DANNY [facility]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, not JANICE Three elsewhere classified Repository / M96.1(ICD-10) 01/27/2018 Unknown M25.562 - Pain in [place], Active Kevin left knee / Emily Community M25.562(ICD-10) Hospital Repository 12/17/2017 Admitting Type 2 diabetes CROUCH, [facility] diagnosis mellitus without DARIEL Chou complications / Repository E11.9(ICD-10) 09/30/2017 Admitting Body mass index CROUCH, Active [facility] diagnosis (bmi) 39.0-39.9, DARIEL Chou adult / Repository Z68.39(ICD-10) 08/04/2017 Admitting Kvng-Danlos CROUCH, Active [facility]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 / DARIEL Chou Q79.6(ICD-10) Repository 08/04/2017 Admitting Obstructive sleep CROUCH, Active [facility] diagnosis apnea (adult) DARIEL Chou (pediatric) / Repository G47.33(ICD-10) 10/01/2017 Unknown M17.12 - Unilateral GilmerDanny Active Kevin primary [facility] osteoarthritis, left Hospital knee / Repository M17.12(ICD-10) 09/30/2017 Admitting Obesity, unspecified CROUCH, Active [facility] diagnosis / E66.9(ICD-10) DARIEL Chou Repository 09/30/2017 Admitting Body mass index CROUCH, Active [facility] diagnosis (BMI) 40.0-44.9, DARIEL Chou adult / Repository Z68.41(ICD-10) 08/04/2017 Admitting Essential (primary) CROUCH, Active [facility] diagnosis hypertension / DARIEL Chou I10(ICD-10) Repository 08/04/2017 Admitting Moderate persistent CROUCH, Active [facility] diagnosis asthma, DARIEL Chou uncomplicated / Repository J45.40(ICD-10) 08/04/2017 Admitting Hypothyroidism, CROUCH, Active [facility] diagnosis unspecified / DARIEL Chou E03.9(ICD-10) Repository 01/03/2016 Admitting Bilateral primary CROUCH, [facility] diagnosis osteoarthritis of DARIEL Chou knee / M17.0(ICD-10) Repository 09/15/2017 Unknown M23.8X2 - Other Gilmer, Danny [facility] derangements of left Hospital knee / Repository M23.8X2(ICD-10) 06/25/2017 Admitting Dorsalgia, VIAU, DANNY [facility] diagnosis unspecified / JANICE Effie M54.9(ICD-10) Repository 06/25/2017 Admitting Pain, unspecified / VIAU, [facility] diagnosis R52(ICD-10) JANICEKELLY Chou Repository PROCEDURES PROCEDURES No Procedure Records FoundRESULTS RESULTS OT FUNCTIONAL CAPACITY Observed: 05/26/2018 Status: F Source: [facility] 1:29 PM [facility] REPOSITORY [facility] [address] [place] [address]. [address] [place] [address] Fax REHABILITATION SERVICES INITIAL EVALUATION MR#: [id number] Acct: [id number] Name: NORBERTO BARBER Rep #: [id number] : 1975 42 From: Fanny Hunt OTR/L, CHT Referring Dr.: DANNY JOHNSON Status: REG RCR Insurance: [employer] [facility] Eval Date: SELF PAY INSURANCE HP OT Functional Capacity Eval - Task Lift Floor (Occasional 1-33% of Day): 20# Floor (Frequent 34-66% of Day): 10# Floor (Constant 67-100% of Day): NA Floor PDL: Light Knee (Occasional 1-33% of Day): 20# Knee (Frequent 34-66% of Day): 10# Knee (Constant 67-100% of Day): NA Knee PDL: Light Waist (Occasional 1-33% of Day): 20# Waist (Frequent 34-66% of Day): 10# Waist (Constant 67-100% of Day): NA Waist PDL: Light Shoulder (Occasional 1-33% of Day): 20# Shoulder (Frequent 34-66% of Day): 10# Shoulder (Constant 67-100% of Day): NA Shoulder PDL: Light Overhead (Occasional 1-33% of Day): 10# Overhead (Frequent 34-66% of Day): NA Overhead (Constant 67-100% of Day): NA Overhead PDL: Sedentary - Work Activity/Posture Bending: Occasional Ability (1-33% of day) Comments: Low occasional ability Squatting: Occasional Ability (1-33% of day) Comments: Low occasional ability Kneeling: No Ablility (0% of day) Reaching out: Frequent Ability (34-66% of day) Comments: while sitting Reaching up: Frequent Ability (34-66% of day) Comments: while sitting Sitting: Occasional Ability (1-33% of day) Comments: with shifting body weight Walking: Occasional Ability (1-33% of day) Comments: low occasional ability Standing: Occasional Ability (1-33% of day) Comments: low occasional ability with shifting body weight - Reference Duration Sedentary Sedentary Light Light Light Medium Medium Medium Heavy V mike Heavy Heavy - Patient Information Height: 1.75 m Weight:: 111.13 kg Hand Dominance: Right - Medical History Medical History Including Restrictions: Client states she was in good health until 2007. Client states ten years ago she began having pain in her left knee. Client had multiple conservative knee interventions, but they were not helpful. Client states her left hip dx with bursitis and IT band syndrome dx in 2009 and back pain. Client states she did have a herniated disc in 2012 and in 2012 she had the discectomy. Client did continue to have difficulty and three years ago she had L5-L6 fusion. Client states she recovered well from her back sx. Client states she does exercise in the pool 2x week on her own. Client states in 2016 she underwent left IT band lengthening sx, with fair success. Client states she underwent a left femur osteotomy August 2017. Client feels this sx was successful. Client has been through many physical therapy sessions to rehab. Client states her spine surgeon told her not to lift more than 5-10# but client does not have anything written by her spine surgeon with her at this time. - Diagnoses Diagnoses: Elders Danlos syndrome dx 2012. High blood pressure dx 2018. Asthma dx 1998 - Symptoms Symptoms: Pain. Weakness. muscle spasms. left leg numbness - Pain Pain: Client states hip/back pain 12/16- thats with gabapentin 900mg a day. 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 client states that she helps with accounting and selling of products. client states if she is having a bad day her dad will pick her up and drive her home so she can rest. 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 Following back sx client was unable to continue with job duties and did not return to her position. - Behavioral Behavioral: Client cooperative and put good effort. - ADLS ADLS: Client state she lives in a two-story home with her . entry is three steps with one hand rail. 15 to second floor, bedroom and bathroom on second floor. Laundry is performed at laundry mat in small amounts. Client states her does sweeping, lifting and does help with cooking. Client states she does sit to fold laundry and will do dishes in short spurts. Client states she can shop about 20 min with a cart, if she uses the motor cart she can stand about an hour. Client does have her to assist with shopping. Client states her step-son does the yard work. Client drives short distances only due to clients increase in pain with driving. Client does use a wheel chair for distance, a standard walker, cane, has shower chair but does not use it much. Client does her own pool exercises 2x week. - Physical Examination Physical Examination: client noted to have left LE atrophy. Ankle right 24cm left 24cm. calf right 43cm left 40cm. Below knee right 38cm left 36cm. Above knee right 53cm left 48cm ROM: Client demo all ROM WNL -noted bilateral elbows hyper extend by 10 degrees. Strength: left hip flex 3+/5. left hip ABD/ADD 3+/5. All other LE manual muscle testing at 4/5. All UB manual muscle testing at 4+/5 grossly throughout Right Retail Advertising Sales Manager Strength Average: 70.00 Right Retail Advertising Sales Manager Strength Percentile: 43% Left Retail Advertising Sales Manager Strength Average: 58.33 Left Retail Advertising Sales Manager Strength Percentile: 28% Right Lateral Pinch Average: 10.66 Right Lateral Pinch Percentile: 10% Left Lateral Pinch Average: 10.00 Left Lateral Pinch Percentile: 25% Right Tripod Pinch Average: 12.00 Right Tripod Pinch Percentile: 25% Left Tripod Pinch Average: 10.00 Left Tripod Pinch Percentile: 25% Sensation: [place] monofilament sensory test. Bilateral digits tested at 2.83 (Normal Sensation) Fine Motor: 9 hole peg test- testing fine mortor skills-. right 21.68 sec=25%. left 26.60 sec = 10% Balance: No loss of balance during assessment. - Non Material Handling Activities Bending: Client demo the ability to bend forward three times, and ten times, clients back pain increased from 7/10 to 8/10 client was unable to bend forward times rapidly. Client can bend forward on a low occasional ability. Squatting: Client demo the ability to squat three times and ten times with external support, client was unable to squat ten times rapidly. The more the client performed her squatting depth decreased. Client can squat on a low occasional ability with use of external support. Kneeling: Client is unabl to kneel Reaching out/up: Client demo the ability to reach out/up three times, ten times and ten times rapidly, Client did perform while sitting. Client can reach out/up on a frequent ability while sitting. Walking: Client ambulated 3:24 min. with reciprocal step pattern and antalgic gait. Noted with increase ambulation distance external rotation of her left foot and slapping of left foot. Client complained of back muscle tightness and increase in pain to 8/10. After ambulation client given heat pack for 5 min she reported pain decreased 6/10. Client can ambulate on a low occasional ability. Standing: Client demo the ability to stand for 3min with shifting her body weight. Client can stand on a low occasional ability. Sitting: Client demo the ability to sit for 45 min with shifting her body weight. Client can sit on an occasional ability with given opportunities to shift her body weight. Climbing Stairs: Client demo the ability to ascend ten steps with right leg step up and use of bilateral hand rails. Descending use of bilateral rails and left leg down each step. - Dynamic Occasional Lifting Capacity Floor Lift: Client lifted 20# with attempt to lift 25# but was unable. Client can lift 20# maximally. Knee Lift: Client lifted 20# with attempt to lift 25# but was unable. Client can lift 20# maximally. Waist Lift: Client can lift 20# maximally. Shoulder Lift: Client can lift 20# maximally. Overhead Lift: Client can lift 10# maximally from this level. Carrying: client demo the ability to carry 10# for 40 feet- client carried wt against self. Client ambulates with increase in antalgic gait with carry. Comments: Client states following the lift client complained of a tightness in her back. Client demonstrated good lifting mechanics with lifting. <Electronically signed by Fanny WINKLER/ERIN Boland> 05/26/18 1329 CC: DANNY JOHNSON; OUT OF TOWN DOCTOR MK Signed For Medicare only, by signing this I certify the plan of care. Physicians Signature Date ORTHOPEDIC VISIT Observed: 05/11/2018 Status: F Source: KEVIN REPORT 11:01 AM [facility] REPOSITORY [facility] [address] [place] [id number] OFFICE VISIT Date of Service: 05/07/18 MR#: [id number] Acct: [id number] Name: NORBERTO BARBER Rep #: [id number] : 1975 Provider: CRESCENCIO Cam Age/Sex: 42/F Location: [facility] [place] [place] Status: Signed Intake Intake Visit Reasons: LEFT HIP Is patient in pain?: Yes Allergies No Known Allergies Allergy (Verified 05/07/18 10:39) Medications Albuterol Inhaler [Ventolin Hfa] 1 - 2 puff INHALATION Q4H PRN PRN 03/20/17 [History Confirmed 09/15/17] Fluticasone/Salmeterol [Advair 250/50 Mcg Diskus] 1 puff INHALATION BID 03/20/17 [History Confirmed 09/15/17] Gabapentin [Neurontin] 300 mg PO BID 03/20/17 [History Confirmed 09/15/17] Levothyroxine [Synthroid] 100 mcg PO DAILY 03/20/17 [History Confirmed 09/15/17] Loratadine [Claritin] 10 mg PO DAILY 03/20/17 [History Confirmed 09/15/17] Montelukast [Singulair] 10 mg PO QHS 03/20/17 [History Confirmed 09/15/17] Omeprazole 40 mg PO QHS 03/20/17 [History Confirmed 09/15/17] Venlafaxine XR [Effexor Xr] 150 mg PO DAILY 03/20/17 [History Confirmed 09/15/17] Docusate Sodium [Colace] 100 mg PO BID PRN PRN #10 cap 03/25/17 [Rx Confirmed 09/15/17] Aspirin E.C. [Ecotrin] 325 mg PO BID #30 tab 09/02/17 [Rx Confirmed 09/15/17] Docusate Sodium [Colace] 100 mg PO BID PRN PRN #10 cap 09/02/17 [Rx Confirmed 09/15/17] Oxycodone HCl/Acetaminophen [Percocet 5/325] 1 - 2 tab PO Q4H PRN PRN #60 tab 09/02/17 [Rx Confirmed 09/15/17] proMETHazine tablet [Phenergan] 25 mg PO Q4H PRN PRN #10 tab 09/02/17 [Rx Confirmed 09/15/17] cyclobenzaprine 10 mg tablet 10 mg PO Q8H PRN #30 tab 09/04/17 [Rx Confirmed 09/15/17] hydrocodone 5 mg-acetaminophen 325 mg tablet See Rx Instructions PO Q8H PRN #42 tab 11/05/17 [Rx Confirmed 11/05/17] PFSH Medical History Asthma (Acute) Kvng-Danlos disease (Acute) s/p left hip IT band lengthening (Acute) Surgical History left knee osteotomy (Acute) S/P carpal tunnel release (Inactive) S/P discectomy (Inactive) S/P left knee arthroscopy (Inactive) S/P lumbar fusion (Inactive) s/p gallbladder (Inactive) Social History Smoking Status: Never smoker HPI LEFT HIP: Details: NORBERTO GONZÁLES is a 42 year old F here today for left hip pain. Patient states that she has had left hip pain for about 10 years. She had IT band surgery last year with Dr Scherer which was helpful. Patient notes that she had an osteotomy in August. She complains of pain over her lateral hip. She has pain into her abdomen when she has increased hip pain. She just completed physical therapy a few months ago which was not helpful. She continues with a HEP. Patient denies any recent injections. She states her pain worsened with the weather. Patient had xrays and MRI prior to her surgery. ROS Const Reports system reviewed and no additional complaints, except as docu Eyes Reports system reviewed and no additional complaints, except as docu ENT Reports system reviewed and no additional complaints, except as docu Card Reports system reviewed and no additional complaints, except as docu Resp Reports system reviewed and no additional complaints, except as docu GI Reports system reviewed and no additional complaints, except as docu Reports system reviewed and no additional complaints, except as docu Musc Reports joint pain Skin/Breast Reports system reviewed and no additional complaints, except as docu Neuro Yes system reviewed and no additional complaints, except as docu Psych Reports system reviewed and no additional complaints, except as docu Endo Reports system reviewed and no additional complaints, except as docu Ortho Exam Left Hip Hip: Present TTP Greater Troch; absent eccymosis, soft tissue swelling or erythema Impingement Test: 1 Labral Stress Test: 2 Special Tests: IT band snap and KALYANI test; pain with log roll, iliopsoas snap or Alvaro test Homans Sign: No HIP: Patient has no evident abnormalities on inspection. There is no localized or generalized swelling of the hip. Patient has full range of motion of the hip and normal 5 out of 5 strength compared to the right side. Patient does have evident tightness on the IT band with some snapping noted. She has very localized tenderness on the greater trochanter of the hip. Assessment AND Plan Problems 1. Left hip pain M25.552 2. Iliotibial band syndrome of left side M76.32 3. Greater trochanteric bursitis of left hip M70.62 Plan Today in the office we discussed the anatomy and physiology of the hip specifically the IT band and greater trochanter bursa. We discussed the pathophysiology of her current injury. Patient does not have any evident abnormalities noted on inspection of the hip. She has no localized or generalized swelling of the hip. She does have normal range of motion of the hip and normal 5/5 strength. She has very localized tenderness on the lateral aspect of the hip over the greater trochanter and somewhat over the adjacent proximal IT band. There is some evident IT band snapping noted with hip internal rotation with the knee flexed to 90 degrees. Patient did previously have an injection and has done physical therapy here as well. She states that the injection did help that she can recall. At this time we discussed treatment options which include doing nothing, physical therapy, injection or further imaging. Patient would like to go ahead with an injection and do some physical therapy at this time. Risks and benefits of the injection were discussed and all questions were answered. Consent was signed today. Injection was given into the left greater trochanteric bursa without any complications. Patient tolerated injection just fine. Continue to monitor for any redness, pain, swelling or other signs of infection and notify of such. Otherwise we will see her after physical therapy is completed. Orders Orders: Plan Detail Follow Up 6 Weeks Coding Level of Care Code Off vis,est,level 3 Diagnoses Left hip pain M25.552 Iliotibial band syndrome of left side M76.32 Greater trochanteric bursitis of left hip M70.62 05/11/18 1101 <Electronically signed by Milton PRATHER> Date Milton PRATHER Cosigner Signature: Date (if applicable) CC: HIP, UNI W/ PELVIS Observed: 05/07/2018 Status: F Source: [place] 2-3 VIEWS 10:45 AM [facility] REPOSITORY [facility] Imaging Services [address] [place] [address] HIP, UNI W/ Pelvis 2-3 Views MR#: [id number] Acct: [id number] Name: NORBERTO BARBER Rep #: [id number] : 1975 F 42 From: Milton Torres MD PCP: [facility] Status: REG CLI Study: HIP, UNI W/ Pelvis 2-3 Views Date of Exam: 05/07/18 Exam# [id number] Ordering Dr: Milton Cam HISTORY: PainRAD - Hip COMPARISON: None FINDINGS: XR Hip Unilateral with Pelvis when performed; 2-3 Views: The sacroiliac and hip joints appear preserved. No fracture or acute disease. No bony erosions. As visualized, the soft tissues are negative. Laminectomy with L5-S1 surgical fusion. RAD/HIP, UNI W/ Pelvis 2-3 Views IMPRESSION: 1. Normal left hip. 2. Laminectomy with L5-S1 surgical fusion. at 0700 Reported and signed by: Milton Torres MD Electronically Signed: Milton Torres, at 6:58 EST Tel , Service support , CC: CRESCENCIO Cam; [facility] Tree Deadener: Signed SPINE THORACIC, 3 Observed: 02/11/2018 Status: F Source: [facility] 2:49 PM [facility] REPOSITORY Final Report Accession No: [id number] Performed: Feb 11 2018 2:49PM Examination: SPINE THORACIC, 3 VIEWS EXAM: SPINE THORACIC, 3 VIEWS REASON FOR EXAM: PAIN. TECHNIQUE: 4 views of the thoracic spine. COMPARISON: 06/25/2017. FINDINGS: Normal thoracic kyphosis. No evidence of listhesis. The vertebral body heights are maintained. Mild degenerative disc disease is present. The pedicles are intact. The visualized lungs are clear. IMPRESSION: No acute osseous abnormality Interpreting Physician: ROSENDO MACE M.D. Trans: n/a : cc: SPINE LUMBAR 2 OR 3 Observed: 02/05/2018 Status: F Source: [facility] 2:31 PM [facility] REPOSITORY Final Report Accession No: [id number] Performed: Feb 05 2018 2:31PM Examination: SPINE LUMBAR 2 OR 3 VIEWS EXAM: SPINE LUMBAR 2 OR 3 VIEWS REASON FOR EXAM: Pain/No Trauma. TECHNIQUE: 3 views of the lumbar spine. COMPARISON: Lumbar spine dated June 12, 2016. FINDINGS: There is lateral curvature of the thoracolumbar spine with convexity to the left. There is no evidence of listhesis. Transpedicular screws and interconnecting rods are identified at L5-S1. An intervertebral disc spacer is seen at L5-S1. There is no evidence of metallic or osseous fracture. There is a mild decrease of the intervertebral disc spaces. No soft tissue abnormalities identified. IMPRESSION: No acute osseous injury. Postsurgical changes. No interval change. Interpreting Physician: JOELLE HENDRICKS D.O. 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: No Accompanied by: None Is patient in pain?: Yes (left knee) Pain scale (1-10): 4 Allergies No Known Allergies Allergy (Verified 10/27/17 13:55) Medications Albuterol Inhaler [Ventolin Hfa] 1 - 2 puff INHALATION Q4H PRN PRN 03/20/17 [History Confirmed 09/15/17] Fluticasone/Salmeterol [Advair 250/50 Mcg Diskus] 1 puff INHALATION BID 03/20/17 [History Confirmed 09/15/17] Gabapentin [Neurontin] 300 mg PO BID 03/20/17 [History Confirmed 09/15/17] Levothyroxine [Synthroid] 100 mcg PO DAILY 03/20/17 [History Confirmed 09/15/17] Loratadine [Claritin] 10 mg PO DAILY 03/20/17 [History Confirmed 09/15/17] Montelukast [Singulair] 10 mg PO QHS 03/20/17 [History Confirmed 09/15/17] Omeprazole 40 mg PO QHS 03/20/17 [History Confirmed 09/15/17] Venlafaxine XR [Effexor Xr] 150 mg PO DAILY 03/20/17 [History Confirmed 09/15/17] Docusate Sodium [Colace] 100 mg PO BID PRN PRN #10 cap 03/25/17 [Rx Confirmed 09/15/17] Aspirin E.C. [Ecotrin] 325 mg PO BID #30 tab 09/02/17 [Rx Confirmed 09/15/17] Docusate Sodium [Colace] 100 mg PO BID PRN PRN #10 cap 09/02/17 [Rx Confirmed 09/15/17] Oxycodone HCl/Acetaminophen [Percocet 5/325] 1 - 2 tab PO Q4H PRN PRN #60 tab 09/02/17 [Rx Confirmed 09/15/17] proMETHazine tablet [Phenergan] 25 mg PO Q4H PRN PRN #10 tab 09/02/17 [Rx Confirmed 09/15/17] cyclobenzaprine 10 mg tablet 10 mg PO Q8H PRN #30 tab 09/04/17 [Rx Confirmed 09/15/17] hydrocodone 5 mg-acetaminophen 325 mg tablet See Label Instructions PO Q8H PRN #42 tab 11/05/17 [Rx Confirmed 11/05/17] PFSH Medical History Asthma (Acute) Kvng-Danlos disease (Acute) s/p left hip IT band lengthening (Acute) Surgical History left knee osteotomy (Acute) S/P carpal tunnel release (Inactive) S/P discectomy (Inactive) S/P left knee arthroscopy (Inactive) S/P lumbar fusion (Inactive) s/p gallbladder (Inactive) Social History Smoking Status: Never smoker HPI LEFT KNEE: Details: NORBERTO GONZÁLES is a 42 year old F here today for left knee pain. Patient had surgery in August and has been doing PT. This started about 3 weeks ago when she was going up the stairs. Pain is rated as 4/10 and describes as a burning pain. The pain is located on the inner left knee. Patient states when in a half arc raises it catches on something. Patient states it pops and clicks and then carrasquillo after it catches. Patient can straighten without difficultly. Patient is not wearing a brace. Assessment AND Plan 1. Chronic pain of left knee M25.562; G89.29 Plan X-rays were reviewed. There is good alignment and healing noted. Reviewed her symptoms and she has ttp the med jt line and pain with flexion, her treatment options are steroid injection today and continue completion of PT. She may break up scar tissue on and off, return if her pain increase or she has locking. Follow up as needed or sooner if pain, swelling, numbness or associated symptoms, or concerns develop. All questions answered. Patient in agreement of plan. Orders Orders: Medications New: 2. Osteoarthritis of left knee, unspecified osteoarthritis type M17.12 Coding Level of Care Code Off vis,est,level 4 Diagnoses Chronic pain of left knee M25.562; G89.29 Chronicity: chronic Osteoarthritis of left knee, unspecified osteoarthritis type M17.12 Osteoarthritis type: unspecified 01/27/18 1349 <Electronically signed by Emily Lopez DO> Date Emily Lopez DO Cosigner Signature: Date (if applicable) CC: KNEE 4 OR MORE Observed: 01/27/2018 Status: F Source: [place] VIEWS 10:49 AM [facility] REPOSITORY [facility] Imaging Services [address] [place] [address] Knee 4 or More Views MR#: [id number] Acct: [id number] Name: NORBERTO BARBER Rep #: [id number] : 1975 F 42 From: Maco Saldaña MD PCP: [facility] Status: REG CLI Study: Knee 4 or More Views Date of Exam: 01/27/18 Exam# [id number] Ordering Dr: Emily Lopez DO STUDY: X-RAY - LEFT KNEE REASON FOR EXAM: Knee pain, postoperative. TECHNIQUE: 4 view(s) of the knee. COMPARISON: Radiographs 10/27/2017 and 10/01/2017. FINDINGS: There is progressive healing of an osteotomy of the distal femur with intact orthopedic hardware. Normal visualized proximal tibia and fibula. Normal proximal tibiofibular articulation. Normal medial femorotibial compartment. 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 There is a small marginal osteophyte of the lateral patella. The soft tissue structures are unremarkable. RAD/Knee 4 or More Views IMPRESSION: Progressive healing of the distal femoral osteotomy. Arthrosis of the lateral femorotibial compartment. Electronically Signed: Maco Saldaña MD at 15:00 EDT Tel , Service support , CC: Emily Lopez DO; OUT OF [facility]OWN DO[facility] Tree Deadener: Signed ORTHOPEDIC VISIT Observed: 12/21/2017 Status: F Source: [place] REPORT 10:27 AM [facility] Orthopa[facility]ics AND Sports Medicine [address] [place] [address] OFFICE VISIT Date of Service: 12/15/17 MR#: [id number] Acct: [id number] Name: NORBERTO BARBER Rep #: [id number] : 1975 Provider: Danny Scherer DO Age/Sex: 42/F Location: [facility] [place] Status: Signed Intake Intake Visit Reasons: LEFT KNEE Is patient in pain?: Yes Pain scale (1-10): 2 Allergies No Known Allergies Allergy (Verified 10/27/17 13:55) Medications Albuterol Inhaler [Ventolin Hfa] 1 - 2 puff INHALATION Q4H PRN PRN 03/20/17 [History Confirmed 09/15/17] Fluticasone/Salmeterol [Advair 250/50 Mcg Diskus] 1 puff INHALATION BID 03/20/17 [History Confirmed 09/15/17] Gabapentin [Neurontin] 300 mg PO BID 03/20/17 [History Confirmed 09/15/17] Levothyroxine [Synthroid] 100 mcg PO DAILY 03/20/17 [History Confirmed 09/15/17] Loratadine [Claritin] 10 mg PO DAILY 03/20/17 [History Confirmed 09/15/17] Montelukast [Singulair] 10 mg PO QHS 03/20/17 [History Confirmed 09/15/17] Omeprazole 40 mg PO QHS 03/20/17 [History Confirmed 09/15/17] Venlafaxine XR [Effexor Xr] 150 mg PO DAILY 03/20/17 [History Confirmed 09/15/17] Docusate Sodium [Colace] 100 mg PO BID PRN PRN #10 cap 03/25/17 [Rx Confirmed 09/15/17] Aspirin E.C. [Ecotrin] 325 mg PO BID #30 tab 09/02/17 [Rx Confirmed 09/15/17] Docusate Sodium [Colace] 100 mg PO BID PRN PRN #10 cap 09/02/17 [Rx Confirmed 09/15/17] Oxycodone HCl/Acetaminophen [Percocet 5/325] 1 - 2 tab PO Q4H PRN PRN #60 tab 09/02/17 [Rx Confirmed 09/15/17] proMETHazine tablet [Phenergan] 25 mg PO Q4H PRN PRN #10 tab 09/02/17 [Rx Confirmed 09/15/17] cyclobenzaprine 10 mg tablet 10 mg PO Q8H PRN #30 tab 09/04/17 [Rx Confirmed 09/15/17] hydrocodone 5 mg-acetaminophen 325 mg tablet See Label Instructions PO Q8H PRN #42 tab 11/05/17 [Rx Confirmed 11/05/17] PFSH Medical History Asthma (Acute) Kvng-Danlos disease (Acute) s/p left hip IT band lengthening (Acute) Surgical History left knee osteotomy (Acute) S/P carpal tunnel release (Inactive) S/P discectomy (Inactive) S/P left knee arthroscopy (Inactive) S/P lumbar fusion (Inactive) s/p gallbladder (Inactive) Social History Smoking Status: Never smoker HPI LEFT KNEE: Details: NORBERTO GONZÁLES is a 42 year old F here today for 09/02/17 left knee scope and osteotomy. She is ambulating well with no assistive device today. Her pain is mild with a grinding sensation under the patella and anterior knee pain. She does get shooting pain into the medial ankle and medial tibia but she associates that with the back pain and results of previous back surgeries. ROS [facility] [place] Reports joint pain, Reports muscle weakness, Reports as per HPI Ortho Exam Left Knee Skin/Wound: Yes CDI, Yes healed Contralateral Normal: Yes Swelling: No Homans Sign: No Knee ROM: Yes ROM-Flexion 0-140, Yes ROM-Passive Flexion 0-140 Examination: Yes Lat jt line tenderness, Yes Pain with flexion Quad Atrophy: No Stability: NML: Anterior Drawer, NML: Fabiana, NML: Posterior Drawer, NML: Valgus 0, NML: Valgus 30, NML: Varus 0, NML: Varus 30, NML: Dial 90, NML: Dial 30 Popliteal Adenopathy: No Apprehension with Lateral Translation: No Patellar Tilt Normal: Yes Patella Grind: No KNEE: Patient is alert oriented 3 no acute distress. She is appropriate eye contact and affect. Walks with a nonantalgic gait. The left knee is that her vascular intact from L1-S1 distributions. She has positive pulses. She has no signs of knee effusion. Her incision is clean dry and intact. Patient has excellent range of motion from 0-130-135. Remains ligamentously stable in all planes. She does still has some mild lateral joint line pain which would be expected from the left intra-articular changes that she has. But she continues to improve. X-rays: Evaluated by myself with patient-patient had weightbearing views to check her mechanical access shows a correction to be neutral within my desired plane of correction. Her hardware otherwise appears to be well-seated well-placed. And she is healed medially where she cracked through the medial cortex. But there is been no rotational abnormality. Assessment AND Plan Problems 1. Internal derangement of left knee M23.92 2. Chronic pain of left knee M25.562; G89.29 3. Primary osteoarthritis of left knee M17.12 Plan Assessment: Left knee internal derangement osteoarthritis and left knee pain. Patient is status post a diagnostic scope meniscus debridement chondroplasty and abrasion chondroplasty with an associated distal femoral osteotomy for lateral compartment arthrosis. Plan: At this point time patient continues to heal well from the osteotomy and her mechanical axis appears to be improved from essentially outside her lateral compartment at least to the central portion of the knee perhaps even a small amount of overcorrection. Way the x-rays are set up a complete access from hip to ankle was difficult to evaluate but the projection appears to show an adequate if not complete correction of deformity. For now the patient will continue to work through the rehabilitation process and we will see how she will respond to the osteotomy and the associated abrasion arthroplasty to the lateral femoral condyle. If she were to fail conservative measures she may require at some point consideration for total knee arthroplasty or consideration for OCD allograft to the lateral compartment. Based on her young age we will see allograft may be warranted to try to get her into her 50s prior to any arthroplasty in the future. Patient aware that I am leaving the practice and she will follow up my partner in 3 months. Any major issues return. Orders Orders: Coding Level of Care Code Off vis,est,level 4 Diagnoses Internal derangement of left knee M23.92 Chronic pain of left knee M25.562; G89.29 Chronicity: chronic Primary osteoarthritis of left knee M17.12 Osteoarthritis type: primary 12/21/17 1027 <Electronically signed by Danny Scherer DO> Date Danny Scherer DO Cosigner Signature: Date (if applicable) CC: MICROALBUMIN, UR RANDOM Collected: 12/16/2017 Status: F Source: [facility] PANEL 11:31 AM [facility] REPOSITORY TYPE CODE TESTS RESULT OUT OF RANGE REFERENCE UNITS LAB CREAURR mg/dL Normal 355.00 Creatinine, Urine Random Result Comment: No established reference range. LAB MIALB 0.0-1.8 mg/dL High Microalbumin, Urine Random 5.2 LAB MALB:CRU 0.0-25.0 MIALB/Creatinine Normal Ratio 15 Performed By: #### MIALBURR #### Unless otherwise noted, all testing performed by [facility] [address] [place] [id number] CLIA: [id number] Roll Builder: Da Cherry M.D. CBC WITH DIFF Collected: 12/16/2017 Status: F Source: [facility] 11:30 AM [facility] REPOSITORY TYPE CODE TESTS RESULT OUT OF RANGE REFERENCE UNITS LAB WBC 3.4-10.6 K/mcL WBC Normal 7.7 LAB RBC 3.7-5.0 M/mcL RBC Normal 4.83 LAB HGB 11.6-15.4 g/dL Normal Hemoglobin 14.3 LAB HCT 34.4-44.8 % Normal Hematocrit 40.6 LAB MCV 82.6-98.9 FL MCV Normal 84.0 LAB MCH 27.9-33.9 pg MCH Normal 29.6 LAB MCHC 33.1-35.1 g/dL High MCHC 35.2 LAB RDW 10-14.4 % RDW Normal 13.2 LAB PLT 162-402 K/mcL Platelet Normal Count 300 LAB MPV 7.0-10.6 FL MPV Normal 8.9 LAB NEUT# 1.2-6.9 K/mcL Normal Neutrophil # 5.1 LAB LYMPH# 1.0-3.7 K/mcL Normal Lymphocyte # 2.1 LAB MONO# 0.1-0.6 K/mcL Monocyte Normal # 0.3 LAB EOS# 0-0.5 K/mcL Normal Eosinophil # 0.1 LAB BASO# 0-0.2 K/mcL Basophil Normal # 0.0 LAB SEGNEU% % Normal Segmented Neut % 66.4 LAB LYMP% % Normal Lymphocyte% 27.7 LAB MO% % Monocyte Normal % 4.1 LAB EO% % Normal Eosinophil % 1.4 LAB BA% % Basophil Normal % 0.4 Performed By: #### HBA1C #### Unless otherwise noted, all testing performed by [facility] [address] [place], [place] [address] CLIA: [id number] Roll Builder: Da Cherry M.D. #### CBCDIF, CMET, TSH, LIPID #### Unless otherwise noted, all testing performed by [facility] [address] [place] [address] CLIA: [id number] Roll Builder: Da Cherry M.D. COMPREHENSIVE METABOLIC Collected: 12/16/2017 Status: F Source: [facility] PANEL 11:30 AM [facility] REPOSITORY TYPE CODE TESTS RESULT OUT OF REFERENCE UNITS RANGE LAB GLU 70-99 mg/dL High Glucose 182 Result Comment: This test result might be falsely depressed or falsely elevated on samples drawn from patients taking Sulfasalazine and Sulfapyridine. Venipuncture should occur prior to taking either of these drugs. LAB BUN 8-25 mg/dL BUN 9 LAB CREA 0.40-1.10 mg/dL Creatinine 0.73 LAB eGFR ml/min/1.73sq .m eGFR,NonAfrican-Am erican >=60 Result Comment: Non- GFR Calc eGFR is an estimated Glomerular Filtration Rate based on the value of the patient's serum creatinine. In outpatients, eGFR should be used as a helpful tool in screening for CKD. In inpatients or patients with acute renal failure, eGFR represents the GFR at the moment of the draw and should be used with caution. LAB eGFRB ml/min/1.73sq.m eGFR, -[place] >=60 Result Comment: GFR Calc LAB CALCM 8.4-10.2 mg/dL Calcium 8.5 LAB NA 135-145 mmol/L Sodium 140 LAB K 3.5-5.1 mmol/L Potassium 3.8 LAB CL 98-108 mmol/L Chloride 107 LAB CO2 21-32 mmol/L CO2 24 LAB AST 0-45 IU/L AST (SGOT) 30 Result Comment: This test result might be falsely depressed or falsely elevated on samples drawn from patients taking Sulfasalazine and Sulfapyridine. Venipuncture should occur prior to taking either of these drugs. LAB ALT 14-65 IU/L ALT (SGPT) 42 Result Comment: This test result might be falsely depressed or falsely elevated on samples drawn from patients taking Sulfasalazine and Sulfapyridine. Venipuncture should occur prior to taking either of these drugs. LAB ALKP 40-140 IU/L Alkaline Phosphatase 113 LAB BILIT 0.3-1.2 mg/dL Bilirubin,Total 0.7 LAB PROT 6.0-8.0 g/dL Protein, Total 7.2 LAB ALB 3.2-5.2 g/dL Albumin 3.6 Performed By: #### HBA1C #### Unless otherwise noted, all testing performed by [place] [address] CLIA: [id number] Roll Builder: Da Cherry M.D. #### CBCDIF, CMET, TSH, LIPID #### Unless otherwise noted, all testing performed by [address] [id number] CLIA: [id number] Roll Builder: Da Cherry M.D. TSH Collected: 12/16/2017 Status: F Source: [facility] 11:30 AM [facility] REPOSITORY TYPE CODE TESTS RESULT OUT OF RANGE REFERENCE UNITS LAB TSH 0.32-5.00 uIU/mL Normal TSH 0.40 Result Comment: Samples from patients routinely receiving high dose biotin therapy (100-300 mg/day) may show falsely decreased results. Please correlate clinically. Performed By: #### HBA1C #### Unless otherwise noted, all testing performed by [place] [address] CLIA: [id number] Roll Builder: Da Cherry M.D. #### CBCDIF, CMET, TSH, LIPID #### Unless otherwise noted, all testing performed by [address] [address] CLIA: [id number] Roll Builder: Da Cherry M.D. LIPID PANEL Collected: 12/16/2017 Status: F Source: [facility] 11:30 AM [facility] REPOSITORY TYPE CODE TESTS RESULT OUT OF REFERENCE UNITS RANGE LAB CHOL 100-199 mg/dL Cholesterol Normal 162 LAB TRIG 30-150 mg/dL Triglycerides High 164 LAB HDL 40-59 mg/dL HDL Normal 40 LAB LDL 10-150 mg/dL LDL Normal 89 LAB VLDL 5-40 mg/dL VLDL Normal 33 LAB CHOL/HDL 3.2-4.5 CHOL/HDL Ratio Normal 4.0 Result Comment: Female Coronary Heart Disease Risk Factor (CHDRF): Average risk= 4.4 1/2 Average risk= 3.3 2 times Average risk= 7.1 Performed By: #### HBA1C #### Unless otherwise noted, all testing performed by [place] [address] CLIA: [id number] Roll Builder: Da Cherry M.D. #### CBCDIF, CMET, TSH, LIPID #### Unless otherwise noted, all testing performed by [address] [address] CLIA: [id number] Roll Builder: Da Cherry M.D. HEMOGLOBIN A1C Collected: 12/16/2017 Status: F Source: [facility] 11:30 AM [facility] REPOSITORY TYPE CODE TESTS RESULT OUT OF REFERENCE UNITS RANGE LAB HBA1C 4.1-6.5 % High Hemoglobin A1C 6.8 Performed By: #### HBA1C #### Unless otherwise noted, all testing performed by [place] [address] CLIA: [id number] Roll Builder: Da Cherry M.D. #### CBCDIF, CMET, TSH, LIPID #### Unless otherwise noted, all testing performed by [address] [address] CLIA: [id number] Roll Builder: Da Cherry M.D. BONE LENGTH Observed: 12/15/2017 Status: F Source: [place] [facility] Imaging Services [address] [place] [address] Bone Length MR#: [id number] Acct: [id number] Name: NORBERTO BARBER Rep #: [id number] : 1975 F 42 From: Sourav Currie MD PCP: [facility] Status: REG CLI Study: Bone Length Date of Exam: 12/15/17 Exam# [id number] Ordering Dr: Danny Scherer DO STUDY: X-RAY BONE LENGTH SURVEY/SCANOGRAM BILATERAL LOWER LEGS REASON FOR EXAM: Female, 42 years old. Leg length discrepancy. Pain. TECHNIQUE: CT scanogram, bilateral lower extremities from the superior margin of the femoral heads through the ankles, in the frontal projection. COMPARISON: X-ray left knee 10/27/2017, 09/02/2017. X-ray left hip 03/05/2017. Prior leg length scanogram of 08/11/2017. FINDINGS: Since the bone length survey of 08/11/2017, the patient now has postsurgical changes of the left distal femur, with plate and screw fixation. The surgical construct appears intact. In each knee, there is mild marginal osteophytic lipping of both the medial and lateral compartments somewhat more prominent in the lateral compartment of the left knee. No significant hip joint degenerative changes are apparent. No significant ankle joint degenerative changes are apparent. Right femur: 50 cm Right tibia: 39.75 Right total length from femoral head to tibial plafond: 89.5 Left femur: 50 cm Left tibia: 39.5 Left total length from femoral head to the tibial plafond: 89.5 RAD/Bone Length IMPRESSION: There is no significant overall leg length discrepancy. Electronically Signed: Sourav Currie, at 15:02 EDT Tel , Service support , CC: Danny Scherer DO; OUT OF TOWN DOCTOR Tree Deadener: Signed ORTHOPEDIC VISIT Observed: 11/05/2017 Status: F Source: [facility] REPORT 9:55 AM [facility] Orthopaedics AND Sports Medicine [address] [place] [address] [address] [place] [address] OFFICE VISIT Date of Service: 10/27/17 MR#: [id number] Acct: [id number] Name: NORBERTO BARBER Rep #: [id number] : 1975 Provider: Danny Scherer DO Age/Sex: 42/F Location: [facility] [place] [place] Status: Signed Intake Intake Visit Reasons: LEFT KNEE Is patient in pain?: Yes Allergies No Known Allergies Allergy (Verified 10/27/17 13:55) Medications Albuterol Inhaler [Ventolin Hfa] 1 - 2 puff INHALATION Q4H PRN PRN 03/20/17 [History Confirmed 09/15/17] Fluticasone/Salmeterol [Advair 250/50 Mcg Diskus] 1 puff INHALATION BID 03/20/17 [History Confirmed 09/15/17] Gabapentin [Neurontin] 300 mg PO BID 03/20/17 [History Confirmed 09/15/17] Levothyroxine [Synthroid] 100 mcg PO DAILY 03/20/17 [History Confirmed 09/15/17] Loratadine [Claritin] 10 mg PO DAILY 03/20/17 [History Confirmed 09/15/17] Montelukast [Singulair] 10 mg PO QHS 03/20/17 [History Confirmed 09/15/17] Omeprazole 40 mg PO QHS 03/20/17 [History Confirmed 09/15/17] Venlafaxine XR [Effexor Xr] 150 mg PO DAILY 03/20/17 [History Confirmed 09/15/17] Docusate Sodium [Colace] 100 mg PO BID PRN PRN #10 cap 03/25/17 [Rx Confirmed 09/15/17] Aspirin E.C. [Ecotrin] 325 mg PO BID #30 tab 09/02/17 [Rx Confirmed 09/15/17] Docusate Sodium [Colace] 100 mg PO BID PRN PRN #10 cap 09/02/17 [Rx Confirmed 09/15/17] Oxycodone HCl/Acetaminophen [Percocet 5/325] 1 - 2 tab PO Q4H PRN PRN #60 tab 09/02/17 [Rx Confirmed 09/15/17] proMETHazine tablet [Phenergan] 25 mg PO Q4H PRN PRN #10 tab 09/02/17 [Rx Confirmed 09/15/17] cyclobenzaprine 10 mg tablet 10 mg PO Q8H PRN #30 tab 09/04/17 [Rx Confirmed 09/15/17] hydrocodone 5 mg-acetaminophen 325 mg tablet See Label Instructions PO Q6H PRN #56 tab 10/01/17 [Rx Confirmed 10/01/17] PFSH Medical History Asthma (Acute) Kvng-Danlos disease (Acute) s/p left hip IT band lengthening (Acute) Surgical History left knee osteotomy (Acute) S/P carpal tunnel release (Inactive) S/P discectomy (Inactive) S/P left knee arthroscopy (Inactive) S/P lumbar fusion (Inactive) s/p gallbladder (Inactive) Social History Smoking Status: Never smoker HPI LEFT KNEE: Details: NORBERTO GONZÁLES is a 42 year old F here today for s/p left knee scope and osteotomy dos 09/02/17. Patient states that she has good and bad days. Her pain increases with rainy weather. She has been wearing her brace and ambulating with crutches. Her incisions are healing. ROS Const Reports system reviewed and no additional complaints, except as docu Eyes Reports system reviewed and no additional complaints, except as docu ENT Reports system reviewed and no additional complaints, except as docu Card Reports system reviewed and no additional complaints, except as docu Resp Reports system reviewed and no additional complaints, except as docu GI Reports system reviewed and no additional complaints, except as docu Reports system reviewed and no additional complaints, except as docu Musc Reports joint pain, Reports stiffness Skin/Breast Reports system reviewed and no additional complaints, except as docu Neuro Yes system reviewed and no additional complaints, except as docu Psych Reports system reviewed and no additional complaints, except as docu Endo Reports system reviewed and no additional complaints, except as docu Ortho Exam Right Knee Patella Translation: 1 Left Knee Skin/Wound: Yes CDI, Yes healed Contralateral Normal: Yes Swelling: No Homans Sign: No Knee ROM: Yes ROM-Flexion 0-140 (0-120) Examination: Yes Lat jt line tenderness Quad Atrophy: No Stability: NML: Anterior Drawer, NML: Fabiana, NML: Posterior Drawer, NML: Valgus 0, NML: Valgus 30, NML: Varus 0, NML: Varus 30, NML: Dial 90, NML: Dial 30 Popliteal Adenopathy: No Patella Translation: 1 Apprehension with Lateral Translation: No Patellar Tilt Normal: Yes Patella Grind: No KNEE: No calf pain negative Homans. X-rays: Evaluated by myself the patient-patient shows good overall alignment and healing at this point time. There has been no change to her hardware positioning. Patient did have propagation that appears to be healed medially. Again lateral views anatomic. Assessment AND Plan Problems 1. Orthopedic aftercare Z47.89 Plan Assessment: After orthopedic status post left knee scope chondroplasty no associated distal femoral osteotomy for lateral compartment arthrosis. Plan: At this point time the patient is roughly 8 weeks out and go ahead and let her start weightbearing as tolerated through her crutches as she feels comfortable. She will work on available range of motion. We will see the patient back in around 6 weeks. I want to get weightbearing views from hip to ankle at that time check overall mechanical alignment. We will also get an AP and lateral of the knee Orders Orders: Coding Level of Care Code Global Post Op Diagnoses Orthopedic aftercare Z47.89 11/05/17 0955 <Electronically signed by Danny Scherer DO> Date Danny Scherer DO Cosigner Signature: Date (if applicable) CC: ORTHOPEDIC VISIT Observed: 10/29/2017 Status: F Source: [facility] REPORT 7:40 AM [facility] REPOSITORY [facility] Orthopaedics AND Sports Medicine [address] [place] [address] [id number] OFFICE VISIT Date of Service: 10/15/17 MR#: [id number] Acct: [id number] Name: NORBERTO BARBER Rep #: [id number] : 1975 Provider: Danny Scherer DO Age/Sex: 42/F Location: [facility] [place] Status: Signed Intake Intake Visit Reasons: LEFT KNEE Is patient in pain?: Yes Allergies No Known Allergies Allergy (Verified 10/27/17 13:55) Medications Albuterol Inhaler [Ventolin Hfa] 1 - 2 puff INHALATION Q4H PRN PRN 03/20/17 [History Confirmed 09/15/17] Fluticasone/Salmeterol [Advair 250/50 Mcg Diskus] 1 puff INHALATION BID 03/20/17 [History Confirmed 09/15/17] Gabapentin [Neurontin] 300 mg PO BID 03/20/17 [History Confirmed 09/15/17] Levothyroxine [Synthroid] 100 mcg PO DAILY 03/20/17 [History Confirmed 09/15/17] Loratadine [Claritin] 10 mg PO DAILY 03/20/17 [History Confirmed 09/15/17] Montelukast [Singulair] 10 mg PO QHS 03/20/17 [History Confirmed 09/15/17] Omeprazole 40 mg PO QHS 03/20/17 [History Confirmed 09/15/17] Venlafaxine XR [Effexor Xr] 150 mg PO DAILY 03/20/17 [History Confirmed 09/15/17] Docusate Sodium [Colace] 100 mg PO BID PRN PRN #10 cap 03/25/17 [Rx Confirmed 09/15/17] Aspirin E.C. [Ecotrin] 325 mg PO BID #30 tab 09/02/17 [Rx Confirmed 09/15/17] Docusate Sodium [Colace] 100 mg PO BID PRN PRN #10 cap 09/02/17 [Rx Confirmed 09/15/17] Oxycodone HCl/Acetaminophen [Percocet 5/325] 1 - 2 tab PO Q4H PRN PRN #60 tab 09/02/17 [Rx Confirmed 09/15/17] proMETHazine tablet [Phenergan] 25 mg PO Q4H PRN PRN #10 tab 09/02/17 [Rx Confirmed 09/15/17] cyclobenzaprine 10 mg tablet 10 mg PO Q8H PRN #30 tab 09/04/17 [Rx Confirmed 09/15/17] hydrocodone 5 mg-acetaminophen 325 mg tablet See Label Instructions PO Q6H PRN #56 tab 10/01/17 [Rx Confirmed 10/01/17] PFSH Medical History Asthma (Acute) Kvng-Danlos disease (Acute) s/p left hip IT band lengthening (Acute) Surgical History left knee osteotomy (Acute) S/P carpal tunnel release (Inactive) S/P discectomy (Inactive) S/P left knee arthroscopy (Inactive) S/P lumbar fusion (Inactive) s/p gallbladder (Inactive) Social History Smoking Status: Never smoker HPI LEFT KNEE: Details: NORBERTO GONZÁLES is a 42 year old F here today for s/p left knee scope and osteotomy dos 09/02/17. Patient notes that she is doing good. She has increased achiness when she does many activities. Patient has been ambulating with her crutches and wearing her brace at all times. Her incisions are healing and she denies any drainage. Denies numbness, tingling or other associated symptoms. ROS Const Reports system reviewed and no additional complaints, except as docu Eyes Reports system reviewed and no additional complaints, except as docu ENT Reports system reviewed and no additional complaints, except as docu Card Reports system reviewed and no additional complaints, except as docu Resp Reports system reviewed and no additional complaints, except as docu GI Reports system reviewed and no additional complaints, except as docu Reports system reviewed and no additional complaints, except as docu Musc Reports joint pain, Reports stiffness Skin/Breast Reports system reviewed and no additional complaints, except as docu Neuro Yes system reviewed and no additional complaints, except as docu Psych Reports system reviewed and no additional complaints, except as docu Endo Reports system reviewed and no additional complaints, except as docu Ortho Exam Left Knee Skin/Wound: Yes CDI Contralateral Normal: Yes Swelling: No Homans Sign: No Knee ROM: Yes ROM-Flexion 0-140 (0-120) Quad Atrophy: No Stability: NML: Anterior Drawer, NML: Fabiana, NML: Posterior Drawer, NML: Valgus 0, NML: Valgus 30, NML: Varus 0, NML: Varus 30, NML: Dial 90, NML: Dial 30 Popliteal Adenopathy: No Apprehension with Lateral Translation: No Patellar Tilt Normal: Yes Patella Grind: No KNEE: X-rays evaluated myself with the patient-patient shows maintenance of mechanical alignment. Hardware well-seated. Patient showing bridging callus medially. Stable construct at this time. Assessment AND Plan Problems 1. Orthopedic aftercare Z47.89 Plan Assessment: After orthopedic status post left knee scope plasty associated distal femoral osteotomy. Plan: At this point time patient be 50% weightbearing 2-3 weeks. Bring him back for new x-rays at that time there is always sufficient healing has been shown will start weightbearing as tolerated through crutches and then transition out. Any major issues please contact x-rays of the Orders Orders: Coding Level of Care Code Global Post Op Diagnoses Orthopedic aftercare Z47.89 10/29/17 0740 <Electronically signed by Danny Scherer DO> Date Danny Scherer DO Cosigner Signature: Date (if applicable) CC: KNEE 4 OR MORE Observed: 10/27/2017 Status: F Source: [facility] VIEWS 1:38 PM [facility] REPOSITORY [facility] Imaging Services [address] [place] [address] Knee 4 or More Views MR#: [id number] Acct: [id number] Name: EUGENIO JAIMESHelioNORBERTO Krystian Rep #: [id number] : 1975 F 42 From: Ai De La Vega MD PCP: Care Physician, No Primary Status: REG CLI Study: Knee 4 or More Views Date of Exam: 10/27/17 Exam# [id number] Ordering Dr: Danny Scherer DO XR Knee Complete 4 Views or More INDICATION: post op COMPARISON: October 15, 2017 TECHNIQUE: 4 views of the left knee FINDINGS: There is redemonstration of a distal femoral osteotomy with filling of the osteotomy defect with bone graft material. Lateral screw and plate fixation of the distal femur is noted. The lateral joint compartment is decreased with marginal osteophyte formation, unchanged. The osseous structures are otherwise intact and well aligned. RAD/Knee 4 or More Views IMPRESSION: Status post left distal femoral osteotomy with expected bone grafting and hardware. Degenerative changes at the lateral joint compartment with joint space narrowing and marginal osteophyte formation, unchanged. at 0041 Reported and signed by: Ai De La Vega MD Electronically Signed: Ai De La Vega MD at 0:39 EDT Tel , Service support , CC: No Primary Care Physician; Danny Scherer DO Tree Deadener: Signed ORTHOPEDIC VISIT Observed: 10/16/2017 Status: F Source: [facility] REPORT 10:31 AM [facility] Orthopaedics AND Sports Medicine [address] [place] [address] OFFICE VISIT Date of Service: 10/01/17 MR#: [id number] Acct: [id number] Name: NORBERTO BARBER Rep #: [id number] : 1975 Provider: Danny Scherer DO Age/Sex: 42/F Location: [facility] [place] Status: Signed Intake Intake Visit Reasons: LEFT KNEE Is patient in pain?: Yes Allergies No Known Allergies Allergy (Verified 10/15/17 10:46) Medications Albuterol Inhaler [Ventolin Hfa] 1 - 2 puff INHALATION Q4H PRN PRN 03/20/17 [History Confirmed 09/15/17] Fluticasone/Salmeterol [Advair 250/50 Mcg Diskus] 1 puff INHALATION BID 03/20/17 [History Confirmed 09/15/17] Gabapentin [Neurontin] 300 mg PO BID 03/20/17 [History Confirmed 09/15/17] Levothyroxine [Synthroid] 100 mcg PO DAILY 03/20/17 [History Confirmed 09/15/17] Loratadine [Claritin] 10 mg PO DAILY 03/20/17 [History Confirmed 09/15/17] Montelukast [Singulair] 10 mg PO QHS 03/20/17 [History Confirmed 09/15/17] Omeprazole 40 mg PO QHS 03/20/17 [History Confirmed 09/15/17] Venlafaxine XR [Effexor Xr] 150 mg PO DAILY 03/20/17 [History Confirmed 09/15/17] Docusate Sodium [Colace] 100 mg PO BID PRN PRN #10 cap 03/25/17 [Rx Confirmed 09/15/17] Aspirin E.C. [Ecotrin] 325 mg PO BID #30 tab 09/02/17 [Rx Confirmed 09/15/17] Docusate Sodium [Colace] 100 mg PO BID PRN PRN #10 cap 09/02/17 [Rx Confirmed 09/15/17] Oxycodone HCl/Acetaminophen [Percocet 5/325] 1 - 2 tab PO Q4H PRN PRN #60 tab 09/02/17 [Rx Confirmed 09/15/17] proMETHazine tablet [Phenergan] 25 mg PO Q4H PRN PRN #10 tab 09/02/17 [Rx Confirmed 09/15/17] cyclobenzaprine 10 mg tablet 10 mg PO Q8H PRN #30 tab 09/04/17 [Rx Confirmed 09/15/17] hydrocodone 5 mg-acetaminophen 325 mg tablet See Label Instructions PO Q6H PRN #56 tab 10/01/17 [Rx Confirmed 10/01/17] PFSH Medical History Asthma (Acute) Kvng-Danlos disease (Acute) s/p left hip IT band lengthening (Acute) Surgical History left knee osteotomy (Acute) S/P carpal tunnel release (Inactive) S/P discectomy (Inactive) S/P left knee arthroscopy (Inactive) S/P lumbar fusion (Inactive) s/p gallbladder (Inactive) Social History Smoking Status: Never smoker HPI LEFT KNEE: Details: NORBERTO GONZÁLES is a 42 year old F here today for s/p left knee scope and osteotomy dos 09/02/17. She has been non-weightbearing and uses a wheelchair around her house. Patient has been wearing her knee brace. Her incision is healing and she denies any redness or drainage. Denies numbness, tingling or other associated symptoms. ROS Const Reports system reviewed and no additional complaints, except as docu Eyes Reports system reviewed and no additional complaints, except as docu ENT Reports system reviewed and no additional complaints, except as docu Card Reports system reviewed and no additional complaints, except as docu Resp Reports system reviewed and no additional complaints, except as docu GI Reports system reviewed and no additional complaints, except as docu Reports system reviewed and no additional complaints, except as docu Musc Reports joint pain, Reports limited joint movement, Reports stiffness Skin/Breast Reports system reviewed and no additional complaints, except as docu Neuro Yes system reviewed and no additional complaints, except as docu Psych Reports system reviewed and no additional complaints, except as docu Endo Reports system reviewed and no additional complaints, except as docu Ortho Exam Left Knee KNEE: Alert and oriented 3 no acute distress. I contact and affect. Otherwise intact from L1-S1 distributions. She has positive pulses. Incisions are clean dry and intact. Range of motion 0-90. She has no calf pain negative Homans. H AND H perform straight leg raise on lag. X-rays: Evaluated myself the patient-patient shows a stable construct status post distal femoral osteotomy. She had extension probably from early weightbearing medially but is otherwise stable. Hardware otherwise well-seated well-placed. Assessment AND Plan Problems 1. Orthopedic aftercare Z47.89 Plan Assessment: After orthopedic status post left knee distal femoral osteotomy doing well. Plan: This point time we will restart physical therapy and see the patient back in 2 weeks and get another x-ray just continue to follow that medial cortex crack. She started put down early callus formation. There is been no rotational changes the hardware appears to be unseated I think at this point time she is doing well. The patient is able to be full weightbearing approximately 8-10 weeks we will get mechanical views from hip to ankle. Refill pain medication. Orders Orders: Medications Refilled: Coding Level of Care Code Global Post Op Diagnoses Orthopedic aftercare Z47.89 10/16/17 1031 <Electronically signed by Danny Scherer DO> Date Danny Scherer DO Cosigner Signature: Date (if applicable) CC: KNEE 4 OR MORE Observed: 10/15/2017 Status: F Source: [facility] VIEWS 10:34 AM [facility] REPOSITORY [facility] Imaging Services [address] [place] [address] Knee 4 or More Views MR#: [id number] Acct: [id number] Name: NORBERTO BARBER Rep #: [id number] : 1975 F 42 From: Mario Lazcano MD PCP: Care Physician, No Primary Status: REG CLI Study: Knee 4 or More Views Date of Exam: 10/15/17 Exam# [id number] Ordering Dr: Danny Scherer DO STUDY: X-RAY - LEFT KNEE REASON FOR EXAM: Female, 42 years old. POST OP L KNEE OSTEOTOMY TECHNIQUE: 4 view(s) of the knee. COMPARISON: None. FINDINGS: There is a metal sideplate transfixing the distal femur. There are cortical screws holding the plate in place. External fixator has been removed. Alignment is unchanged. Distal femoral osteotomy changes noted. Normal visualized proximal tibia and fibula. Normal proximal tibiofibular articulation. Normal medial femorotibial compartment. Normal lateral femorotibial compartment. Normal patellofemoral articulation. The soft tissue structures are unremarkable. RAD/Knee 4 or More Views IMPRESSION: Postoperative changes as above. There are no acute findings. Electronically Signed: Mario Lazcano MD at 16:49 EDT , Service support , CC: No Primary Care Physician; Danny Scherer DO Tree Deadener: Signed KNEE 4 OR MORE Observed: 10/01/2017 Status: F Source: [facility] VIEWS 12:53 PM [facility] REPOSITORY [facility] Imaging Services [address] [place] [address] Knee 4 or More Views MR#: [id number] Acct: [id number] Name: NORBERTO BARBER Rep #: [id number] : 1975 F 42 From: Evens Peña MD PCP: Care Physician, No Primary Status: REG CLI Study: Knee 4 or More Views Date of Exam: 10/01/17 Exam# [id number] Ordering Dr: Danny Scherer DO STUDY: X-RAY - LEFT KNEE REASON FOR EXAM: Female, 42 years old. Knee pain. Injury. Previous surgery. TECHNIQUE: 3 view(s) of the knee. COMPARISON: 09/15/2017. FINDINGS: No definite acute abnormality. Stable appearance of distal femoral osteotomy with compression plate and screws along the lateral distal femoral metaphysis. Fragments are in anatomic alignment and position. RAD/Knee 4 or More Views IMPRESSION: Stable postsurgical changes and no definite acute abnormality. Electronically Signed: Evens Peña MD at 19:53 EDT , Service support , CC: No Primary Care Physician; Danny Scherer DO Tree Deadener: Signed ORTHOPEDIC VISIT Observed: 09/18/2017 Status: F Source: [facility] REPORT 8:51 AM [facility] REPOSITORY [facility] Orthopaedics AND Sports Medicine [address] [place] [address] OFFICE VISIT Date of Service: 09/15/17 MR#: [id number] Acct: [id number] Name: NORBERTO BARBER Rep #: [id number] : 1975 Provider: Danny Scherer DO Age/Sex: 42/F Location: [facility] [place] [place] Status: Signed Intake Intake Visit Reasons: LEFT KNEE Is patient in pain?: Yes Pain scale (1-10): 7 Allergies No Known Allergies Allergy (Verified 08/26/17 13:26) Medications Albuterol Inhaler [Ventolin Hfa] 1 - 2 puff INHALATION Q4H PRN PRN 03/20/17 [History Confirmed 09/15/17] Fluticasone/Salmeterol [Advair 250/50 Mcg Diskus] 1 puff INHALATION BID 03/20/17 [History Confirmed 09/15/17] Gabapentin [Neurontin] 300 mg PO BID 03/20/17 [History Confirmed 09/15/17] Levothyroxine [Synthroid] 100 mcg PO DAILY 03/20/17 [History Confirmed 09/15/17] Loratadine [Claritin] 10 mg PO DAILY 03/20/17 [History Confirmed 09/15/17] Montelukast [Singulair] 10 mg PO QHS 03/20/17 [History Confirmed 09/15/17] Omeprazole 40 mg PO QHS 03/20/17 [History Confirmed 09/15/17] Venlafaxine XR [Effexor Xr] 150 mg PO DAILY 03/20/17 [History Confirmed 09/15/17] Docusate Sodium [Colace] 100 mg PO BID PRN PRN #10 cap 03/25/17 [Rx Confirmed 09/15/17] Aspirin E.C. [Ecotrin] 325 mg PO BID #30 tab 09/02/17 [Rx Confirmed 09/15/17] Docusate Sodium [Colace] 100 mg PO BID PRN PRN #10 cap 09/02/17 [Rx Confirmed 09/15/17] Oxycodone HCl/Acetaminophen [Percocet 5/325] 1 - 2 tab PO Q4H PRN PRN #60 tab 09/02/17 [Rx Confirmed 09/15/17] proMETHazine tablet [Phenergan] 25 mg PO Q4H PRN PRN #10 tab 09/02/17 [Rx Confirmed 09/15/17] cyclobenzaprine 10 mg tablet 10 mg PO Q8H PRN #30 tab 09/04/17 [Rx Confirmed 09/15/17] hydrocodone 5 mg-acetaminophen 325 mg tablet See Label Instructions PO Q6H PRN #56 tab 09/15/17 [Rx Confirmed 09/15/17] PFSH Medical History Asthma (Acute) Kvng-Danlos disease (Acute) s/p left hip IT band lengthening (Acute) Surgical History left knee osteotomy (Acute) S/P carpal tunnel release (Inactive) S/P discectomy (Inactive) S/P left knee arthroscopy (Inactive) S/P lumbar fusion (Inactive) s/p gallbladder (Inactive) Social History Smoking Status: Never smoker HPI LEFT KNEE: Details: NORBERTO GONZÁLES is a 42 year old F here today for f/u 09/02/17 left knee scope and osteotomy. She is complaining of pain in the quad and anterior knee. She has trouble with walking more than short distances without feeling like she is going to faint. Her steri strips are well placed and her scope incisions are healing well. Denies numbness, tingling or other associated symptoms. She says she walks around the house but not much outside the house. ROS Musc Reports joint pain, Reports joint swelling, Reports abnormal walking, Reports limited joint movement, Reports stiffness, Reports as per HPI Neuro Yes abnormal walking Ortho Exam Right Knee Patella Translation: 1 Left Knee Skin/Wound: Yes CDI, Yes healed Contralateral Normal: Yes Swelling: No Homans Sign: No 1+: Effusion Knee ROM: Yes ROM-Flexion 0-140 (0-45) Quad Atrophy: No Stability: NML: Anterior Drawer, NML: Fabiana, NML: Posterior Drawer, NML: Valgus 0, NML: Valgus 30, NML: Varus 0, NML: Varus 30, NML: Dial 90, NML: Dial 30 Popliteal Adenopathy: No Patella Translation: 1 Apprehension with Lateral Translation: No Patellar Tilt Normal: Yes Patella Grind: No KNEE: No calf pain negative Homans incision clean dry and intact Steri-Strips applied. Sutures removed from the portal sites. X-rays: Evaluated myself patient-overall alignment is really unchanged the patient does show a new cortical fracture line although minimal if any displacement. No rotational changes noted hardware again otherwise well-seated well-placed status post distal femoral osteotomy for lateral compartment arthrosis. Intraoperative findings discussed. Assessment AND Plan Problems 1. Orthopedic aftercare Z47.89 Plan Assessment after orthopedic status post left knee arthroscopy chondroplasty and associated distal femoral osteotomy. Plan: This point time patient continues to be partial weightbearing for the patient not using crutches as her gait and weightbearing status or stress in the construct. She needs to be cautious with rotation. Patient states that she got her knee in the covers which may result in a little midline medial change. I want the patient to come back in 2 weeks for new set radiographs make sure there has been any changes. We will start advancing her flexion-extension at that time. Any major issues return. Orders Orders: Medications New: Coding Level of Care Code Global Post Op Diagnoses Orthopedic aftercare Z47.89 09/18/17 0851 <Electronically signed by Danny Scherer DO> Date Danny Scherer DO Cosigner Signature: Date (if applicable) CC: KNEE 4 OR MORE Observed: 09/15/2017 Status: F Source: [place] VIEWS 1:02 PM [facility] REPOSITORY [facility] Imaging Services [address] [place] [address] Knee 4 or More Views MR#: [id number] Acct: [id number] Name: NORBERTO BARBER Rep #: [id number] : 1975 F 42 From: Mario Lazcano MD PCP: Care Physician, No Primary Status: REG CLI Study: Knee 4 or More Views Date of Exam: 09/15/17 Exam# [id number] Ordering Dr: Danny Scherer DO STUDY: X-RAY - LEFT KNEE REASON FOR EXAM: Female, 42 years old. Pain, post op 2 weeks TECHNIQUE: 4 view(s) of the knee. COMPARISON: 09.02.17 FINDINGS: There is a metal sideplate transfixing the distal femur. There are cortical screws holding the plate in place. Healing fracture of the distal femur. Normal visualized proximal tibia and fibula. Normal proximal tibiofibular articulation. Normal medial femorotibial compartment. There is moderate degenerative arthrosis of the lateral femorotibial compartment with moderate joint space narrowing. Normal patellofemoral articulation. The soft tissue structures are unremarkable. 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 Healing fracture of the distal femur. Orthopedic hardware appears intact. Electronically Signed: Mario Lazcano MD at 17:04 EDT , Service support , CC: No Primary Care Physician; Danny Scherer DO Tree Deadener: Signed DISCHARGE INSTRUCTION Observed: 09/03/2017 Status: F Source: [place] 8:01 AM [facility] REPOSITORY [facility] Medical Records Department [address] [place] [address] Instructions for Home/Discharge Instructions 09/03/17 0758 MR#: [id number] Acct: [id number] Name: NORBERTO BARBER Rep #: [id number] : 1975 42 From: Danny Scherer DO PCP: Care Physician, No Primary Status: ADM CHACHO Discharge Activity: Return to Normal Activity, May not drive while taking narcotic pain medications., May Shower, Use Walker May shower in (days): 1 May resume sexual activity in: 8 weeks Ice area for (Minutes): 20 - Use ice machine as needed Weight Bearing Status: Toe touch weight bearing Keep extremity elevated above heart level: Left Leg Additional Activity Instructions:: May remove brace to bend knee to 90 3 times per day passively. Patient may keep brace on and simply open it to 90 if desired. Brace will then need to be locked out remaining. Patient may shower with brace off but needs to be very cautious with slippery prevention. Call your doctor if your incision/area has: Continuous Slow Oozing, Sudden Increased Bleeding, Increased Pain/ Swelling, Increased Redness, Foul Smelling Discharge, Swelling at the incision site Call your doctor if you observe: Fever of 101 or Higher, Coldness, Increased Pain, Numbness or Tingling, Change in Color, Inability to urinate, Inability to have a bowel movement, Using more than one pad per hour, Shortness of breath, Dizziness, Fainting spells, Swelling in the ankles, Chest pain, Prolonged hiccoughing, Increased palpitations (irregular heartbeat), Calf discomfort, Uncontrolled pain Suture Line Care: Avoid Pulling/Pushing, Avoid Pinching/Bending Change Dressing in (Days):: 1 Remove Dressing in (days):: 1 Cleanse incision/area with: Soap AND Water Additional Dressing/Incision Instructions:: Remove dressing to shower postop day 2. Do not submerge wound. May shower however and get wound wet. Replace Nikolay wrap as long as there is no drainage. Please simple gauze pad or ABD pad over drainage area. Wash hands prior to touching wound. Do not let animals touch the wound. Allergies/Adverse Reactions: Allergies No Known Allergies Allergy (Verified 08/26/17 13:26) Medications to take at Discharge Albuterol Inhaler [Ventolin Hfa (SP)] 1 - 2 puff INHALATION Q4H PRN PRN 03/20/17 Celecoxib [Celebrex] 100 mg PO BID 03/20/17 Fluticasone/Salmeterol [Advair 250/50 Mcg Diskus] 1 puff INHALATION BID 03/20/17 Gabapentin [Neurontin] 300 mg PO BID 03/20/17 Levothyroxine [Synthroid] 100 mcg PO DAILY 03/20/17 Loratadine [Claritin] 10 mg PO DAILY 03/20/17 Montelukast [Singulair] 10 mg PO QHS 03/20/17 Omeprazole 40 mg PO QHS 03/20/17 Venlafaxine XR [Effexor Xr] 150 mg PO DAILY 03/20/17 Docusate Sodium [Colace] 100 mg PO BID PRN PRN #10 cap 03/25/17 Hydrocodone Bitart/Apap 5-325 [Padroni 5/325] 1 - 2 tab PO Q6H PRN PRN #60 tab 03/25/17 Cyclobenzaprine [Flexeril] 10 mg PO QHS 08/26/17 Aspirin E.C. [Ecotrin] 325 mg PO BID #30 tablet 09/02/17 Docusate Sodium [Colace] 100 mg PO BID PRN PRN #10 capsule 09/02/17 Oxycodone HCl/Acetaminophen [Percocet 5/325] 1 - 2 tablet PO Q4H PRN PRN #60 tablet 09/02/17 proMETHazine tablet [Phenergan] 25 mg PO Q4H PRN PRN #10 tablet 09/02/17 The following prescriptions were given: Oxycodone HCl/Acetaminophen [Percocet 5/325] 1 - 2 tablet PO Q4H PRN PRN #60 tablet PRN Reason: Pain proMETHazine tablet [Phenergan] 25 mg PO Q4H PRN PRN #10 tablet PRN Reason: Nausea Docusate Sodium [Colace] 100 mg PO BID PRN PRN #10 capsule PRN Reason: Constipation Aspirin E.C. [Ecotrin] 325 mg PO BID #30 tablet Primary Care Physician: Care Physician,No Primary [Primary Care Provider] - Please Follow Up With: Danny Scherer DO When: Call [facility] for appointment for 2 weeks. Proposed Discharge Date: 09/03/17 09/03/17 0801 <Electronically signed by Danny Scherer DO> Date Danny Scherer DO CC: No Primary Care Physician OPERATIVE REPORT Observed: 09/02/2017 Status: F Source: [place] 1:53 PM [facility] REPOSITORY [facility] Medical Records Department [address] [place] [address] Operative Report 09/02/17 1345 MR#: [id number] Acct: [id number] Name: NORBERTO BARBER Rep #: [id number] : 1975 42 From: Danny Scherer DO PCP: Care Physician, No Primary Status: REG [facility] [place] Location: [facility] [place] [id number] Report of Operation Date of Procedure: 09/02/17 Pre-Operative Diagnosis: Left knee lateral compartment arthrosis and internal derangement of the knee. Post-Operative Diagnosis: Same as above Surgery/Procedure Performed:: Left knee arthroscopy with abrasion chondroplasty of the lateral femoral condyle, open distal femoral osteotomy Description of Surgical Findings:: 42-year-old female with valgus malalignment and degenerative arthrosis of the lateral compartment. Having failed conservative measures my recommendation was for diagnostic knee scope evaluation lateral compartment and probable distal femoral osteotomy with cartilage congregational procedure in a staged timeframe. Patient agreed to the aforementioned procedure having failed conservative measures. She is met in the holding area with a left lower extremity was marked and identified by the with surgeon. Patient was taken to the operating room in satisfactory condition with somewhat to place to identify patient operative procedure and limb. Patient received 2 g of Ancef. A well-placed tourniquet to left proximal thigh. Patient was then prepped and draped in the usual fashion. Left lower extremity was elevated Esmarch used for exsanguination and tourniquet was increased to 250 mmHg for roughly 90 minutes. Initial diagnostic scope was undertaken. Anterolateral portal was established and we entered into the intra-articular space. There was no return effusion. Superior lateral outflow portal was then created. Diagnostic scope should the patient have grade 2 and grade III chondromalacia globally around the patella but no significant loose fragments could be appreciated. Much of it was fissure formation. Her trochlea showed grade 2 changes. Removed in the lateral compartment and you could see a lateral osteophyte off the femoral condyle although mild. Her popliteal hiatus was otherwise normal. Then moved in the medial compartment established anteromedial portal. Diagnostic evaluation the medial compartment showed the meniscus to be pristine. She had grade 2 changes across the femoral condyle and grade 1 changes across the tibial plateau. Otherwise the overall continuity the cartilage is well-maintained. The patient showed a partial ACL disruption to the anterior bundle but the overall continuity of the fibers was intact and so was preserved. The loose fragments were gently debrided using mechanical shaver. We then moved to the lateral compartment. The patient showed a large area of cartilage loss from around 15 knee flexion to about 70 of knee flexion. It really was moving from the middle the lateral third of the area. I measured 1 large focal area to be roughly 20 mm from superior to inferior and about 15 mm from medial to lateral. The loose edges were debrided. I then performed a abrasion chondroplasty through that area to try to stimulate some new cartilage formation. I did not want to overly perform an aggressive procedure as I felt the lesion size was too large for microfracture and the cartilage mobley relatively thin to the lateral aspect of the condyle not providing a inadequate contained lesion. Her meniscus was otherwise stable and showed no significant pathology. The popliteal hiatus was normal. The patient showed grade III chondromalacia to the central posterior aspect of the lateral femoral condyle. This was gently debrided of any loose cartilage as well. Upon completion of the scope the scope was retracted and the portal sites closed with 3-0 nylon. We then turned our attention to the open distal femoral osteotomy. Patient had a longitudinal incision made from the lateral condyle moving proximal. The IT band was identified and longitudinally split. And the vastus lateralis was then peeled off of the remnant portion of the IT band and then elevated in a subperiosteal fashion from proximal to distal. We used a quadriceps protecting Hohmann superiorly and a secondary protective R Alexander inferiorly in anticipation of our femoral cut. Plate was temporarily identified to be in adequate position distally to allow for appropriate bone coverage and to avoid the osteotomy being near the patellofemoral joint of the trochlea. Initial guidewire was passed towards the medial epicondyle using standard technique. Parallel wire was then placed through the cutting plate. We then performed our standard osteotomy using sagittal saw initially and then completing it using standard osteotome technique with C-arm visualization the AP plane. Upon completion of our cut the osteotomy yelena was then introduced to gently plastic deformation the medial cortex. We dilated to roughly 7 mm which was my preoperative templating. At that point time a fresh frozen tricortical wedge was prepared in order to place within our defect site and again was roughly 7 mm in overall diameter. This allowed for maintenance of the osteotomy and subsequent placement of the plate using standard AO technique. It was fixed distally with cortical screws with locking technique and then proximally with bicortical screw fixation. We placed one locking screw within the center hole which allowed for a 90 plate angle. Upon completion and evaluation of both AP and lateral planes, was found in good position osteotomy site was well aligned and we subsequently placed calcium phosphate cement within her cortical defect site at the osteotomy under C-arm visualization. This was allowed to cure using standard technique. The wound was then copiously irrigated multiple times throughout the procedure. We then reapproximated the IT band with [id number] technique using 0 Vicryl.. Soft tissues were reapproximated first deep to the fat layer with 0 Vicryl. Subcu tissue with 2-0 Vicryl running subicular Monocryl and Dermabond application. Standard dressing was then applied. Tourniquet was let down during final closure at 90 minutes. I was scrubbed and available time during our procedure. We had no drains or complications. Implants included the Arthrex contour plate distal first femoral osteotomy system. Again we used a standard screw fixation through their system. Patient be admitted floor for 24 hours of IV antibiotics appropriate IV and p.o. pain medication. Patient will be touchdown weightbearing for 4 weeks partial weightbearing for 4 and then advanced from there. Brace is locked in extension at this time. Any major issues please contact me. pot operator: Christi Mayers Type of Anesthesia:: General Specimen's removed: None Estimated Blood Loss (mL): 50 Grafts/Implants Used: Arthrex distal femoral osteotomy contour plate system - Complications none - Admit VTE Documentation VTE Present on Admission: No VTE Mechan Device Prophylaxis: SCD's, Knee High SELINA Hose VTE Pharm Prophylaxis ordered?: Yes 09/02/17 1353 <Electronically signed by Danny Scherer DO> Date Danny Scherer DO CC: No Primary Care Physician; Danny Scherer DO Signed THYROID STIM HORMONE Collected: 09/02/2017 Status: F Source: [place] (TSH) 8:38 AM [facility] REPOSITORY TYPE CODE TESTS RESULT OUT OF RANGE REFERENCE UNITS LAB L501.9520 0.358-3.74 uIU/mL Normal TSH 2.99 Performed By: #### L400.7600, L501.9520 #### [facility] [address] [place], [place], [address] ,URINE Collected: 09/02/2017 Status: F Source: [place] 8:20 AM [facility] REPOSITORY TYPE CODE TESTS RESULT OUT OF REFERENCE UNITS RANGE LAB L400.8000 Negative Normal HCGUQUAL Negative Result Comment: Very dilute urine specimens, as indicated by a low specific gravity, may not contain ambulatory service representative levels of hCG. If is still suspected, a first morning urine specimen should be collected 48 hours later and tested. Performed By: #### L400.7600, L501.9520 #### [facility] [address] [place], [address] KNEE 1 OR 2 VIEWS Observed: 09/02/2017 Status: F Source: [place] 7:04 AM [facility] REPOSITORY [facility] Imaging Services [address] [place] [address] Knee 1 or 2 Views MR#: [id number] Acct: [id number] Name: NORBERTO BARBER Rep #: [id number] : 1975 F 42 From: Tano Flood MD PCP: Care Physician, No Primary Status: DIS CHACHO Study: Knee 1 or 2 Views Date of Exam: 09/02/17 Exam# [id number] Ordering Dr: Danny Scherer DO STUDY: X-RAY - LEFT KNEE REASON FOR EXAM: Female, 42 years old. Recent postoperative left knee. Partial lateral meniscectomy with small recurrent lateral meniscus posterior horn tear. TECHNIQUE: 2 view(s) of the knee. COMPARISON: Intraoperative fluoroscopic spot images left knee 09/02/2017. Correlation leg length study 08/11/2017. FINDINGS: Extensive distal femoral postsurgical changes include lateral metal sideplate with numerous threaded metal cortical screws transfixing distal fibular fracture partially filled with high density widely which appears wider laterally than medially with oblique orientation, appears stable. Fairly severe lateral and moderate medial/patellar femoral compartmental narrowing and moderate subchondral sclerosis noted. Postsurgical soft tissue changes include moderate soft tissue swelling/hematoma and mild subcutaneous emphysema involving lateral compartment near the distal femur. No radiopaque foreign body identified. RAD/Knee 1 or 2 Views IMPRESSION: Postsurgical changes left knee as described. Please see surgeon's operative note for additional details. Electronically Signed: Tano Flood, at 16:04 EDT Tel , Service support , CC: No Primary Care Physician; Danny Scherer DO Tree Deadener: Signed KNEE 1 OR 2 VIEWS Observed: 09/02/2017 Status: F Source: [place] 12:12 AM [facility] REPOSITORY [facility] Imaging Services [address] [place] [address] Knee 1 or 2 Views MR#: [id number] Acct: [id number] Name: EUGENIO NIVIA,NORBERTO L Rep #: [id number] : 1975 F 42 From: Kay Enrique MD PCP: Care Physician, No Primary Status: DIS CHACHO Study: Knee 1 or 2 Views Date of Exam: 09/02/17 Exam# [id number] Ordering Dr: Danny Scherer DO STUDY: X-RAY - LEFT KNEE REASON FOR EXAM: Female, 42 years old. Intraoperative assessment TECHNIQUE: Two view(s) of the knee were obtained. COMPARISON: December 23, 2016 FINDINGS: There are a plate and screws along the distal shaft of the femur. There are surgical changes in the distal shaft of the femur. Air is present in the surrounding soft tissues. Fluoroscopy time 39 seconds. Accumulative dose 6.09 mGy. RAD/Knee 1 or 2 Views IMPRESSION: Limited views of the left knee were obtained intraoperatively. Electronically Signed: Kay Enrique MD at 13:48 EDT Tel Direct: [phone], Service support , CC: No Primary Care Physician; Danny Scherer DO Tree Deadener: Signed ORTHOPEDIC VISIT Observed: 08/15/2017 Status: F Source: [place] REPORT 1:50 PM [facility] REPOSITORY [facility] [facility] [address] [place] [address] OFFICE VISIT Date of Service: 08/11/17 MR#: [id number] Acct: [id number] Name: NORBERTO BARBER Rep #: [id number] : 1975 Provider: Danny Scherer DO Age/Sex: 42/F Location: [facility] Status: Signed Intake Intake Visit Reasons: LEFT KNEE Is patient in pain?: Yes Pain scale (1-10): 7 Allergies No Known Allergies Allergy (Verified 08/11/17 14:25) Medications Albuterol Inhaler [Ventolin Hfa (SP)] 1 - 2 puff INHALATION Q4H PRN PRN 03/20/17 [History Confirmed 08/11/17] Celecoxib [Celebrex] 100 mg PO BID 03/20/17 [History Confirmed 08/11/17] Fluticasone/Salmeterol [Advair 250/50 Mcg Diskus] 1 puff INHALATION BID 03/20/17 [History Confirmed 08/11/17] Gabapentin [Neurontin] 300 mg PO TIDCM 03/20/17 [History Confirmed 08/11/17] Levothyroxine [Synthroid] 100 mcg PO DAILY 03/20/17 [History Confirmed 08/11/17] Loratadine [Claritin] 10 mg PO DAILY 03/20/17 [History Confirmed 08/11/17] Montelukast [Singulair] 10 mg PO DAILY 03/20/17 [History Confirmed 08/11/17] Omeprazole 40 mg PO QHS 03/20/17 [History Confirmed 08/11/17] Venlafaxine XR [Effexor Xr] 150 mg PO DAILY 03/20/17 [History Confirmed 08/11/17] Docusate Sodium [Colace] 100 mg PO BID PRN PRN #10 cap 03/25/17 [Rx Confirmed 08/11/17] Hydrocodone Bitart/Apap 5-325 [Padroni 5/325] 1 - 2 tab PO Q6H PRN PRN #60 tab 03/25/17 [Rx Confirmed 08/11/17] ProMETHAzine [Phenergan] 25 mg PO Q4H PRN PRN #10 tab 03/25/17 [Rx Confirmed 08/11/17] PFSH Medical History Asthma (Acute) Kvng-Danlos disease (Acute) s/p left hip IT band lengthening (Acute) Surgical History S/P carpal tunnel release (Inactive) S/P discectomy (Inactive) S/P left knee arthroscopy (Inactive) S/P lumbar fusion (Inactive) s/p gallbladder (Inactive) Social History Smoking Status: Never smoker HPI LEFT KNEE: Details: NORBERTO GONZÁLES is a 42 year old F here today for MRI f/u of the left knee, she complains increased left hip pain, clicking in the knee and she is ambulating with antalgic gait. She explained that she tried to use the brace but it made her hip hurt worse. Denies numbness, tingling or other associated symptoms. ROS Const Reports system reviewed and no additional complaints, except as docu Eyes Reports system reviewed and no additional complaints, except as docu ENT Reports system reviewed and no additional complaints, except as docu Card Reports system reviewed and no additional complaints, except as docu Resp Reports system reviewed and no additional complaints, except as docu GI Reports system reviewed and no additional complaints, except as docu Musc Reports joint pain, Reports limited joint movement, Reports stiffness, Reports muscle weakness, Reports abnormal walking Skin/Breast Reports system reviewed and no additional complaints, except as docu Neuro Yes system reviewed and no additional complaints, except as docu, Yes abnormal walking Psych Reports system reviewed and no additional complaints, except as docu Endo Reports system reviewed and no additional complaints, except as docu Ortho Exam Right Knee Patella Translation: 1 Left Knee Contralateral Normal: Yes Swelling: Yes Homans Sign: No 1+: Effusion Knee ROM: Yes ROM-Extension -20 to 0, Yes ROM-Flexion 0-140, Yes ROM-Passive Extension -10 to 0, Yes ROM-Passive Flexion 0-140 Examination: Yes Lat jt line tenderness, Yes Pain with flexion, Yes Crepitus, Yes Leonides's Test Quad Atrophy: No Stability: NML: Anterior Drawer, NML: Fabiana, NML: Posterior Drawer, NML: Valgus 0, NML: Valgus 30, NML: Varus 0, NML: Varus 30, NML: Dial 90, NML: Dial 30 Popliteal Adenopathy: No Patella Translation: 1 Apprehension with Lateral Translation: No Patellar Tilt Normal: Yes Patella Grind: No KNEE: General: well developed, well nourished in no acute distress. Head: normocephalic and atraumatic Pulses: pulses normal in all 4 extremities. Neurologic: no focal deficits, cranial nerves II-XII grossly intact with normal sensation, reflexed, coordination, muscle strength and tone. Axillary Nodes: no significant adenopathy. Psych: alert and cooperative, normal mood and affect, normal attention span and concentration. Heart regular S1-S2 lungs clear to auscultation bilaterally abdomen is soft nontender nondistended with no gross hepatosplenomegaly. MRI: Evaluated myself patient-patient shows valgus deformity to her knee and degenerative arthrosis of the lateral compartment with thinned out cartilage and minimal lateral meniscus at this point time. Medial compartment is well-preserved. ACL PCL intact. Patient shows mild chondromalacia changes the patellofemoral joint. X-rays: Evaluated myself patient-patient has sustained standing hip ankle views that show her mechanical axis moves to her left lateral compartment indicative of valgus nature of the knees are compensated by her osteoarthritis. Assessment AND Plan Problems 1. Chondromalacia, left knee M94.262 2. Other internal derangements of left knee M23.8X2 3. Chronic pain of left knee M25.562; G89.29 Plan Assessment: Left knee internal chondromalacia limited meniscus, left knee pain. Plan: At this point time based on the patient's MRI findings and clinical examination my recommendation would be for distal femoral osteotomy and a diagnostic knee scope. The diagnostic scope will be allowing for better evaluation of the cartilage and whether or not cartilage congregational procedure as a staged procedure will be warranted and/or possibility of meniscal allograft transplantation. However my recommendation in the acute setting his informant lateral femoral osteotomy to offload her lateral compartment and move her mechanical axis more to the midline to try to protect the lateral compartment is been severely injured. At this point time patient elects to proceed with a distal femoral osteotomy with the understanding that staged procedure may need to be undertaken of the face again allograft transplantation and/or meniscal allograft transplantation in conjunction more separately. Patient understands risks and benefits to include damage to nerves muscles arteries veins, DVT PE infection or and need for further intervention. And fracture fracture to the medial aspect. Patient agrees with plan Reviewed the pre-operative plans with the patient. Risks and benefits of the procedure were fully explained, including but not limited to infection, neurovascular injury, continued pain, arthritis, stiffness, need for further surgery, re-injury, DVT, PE, general risks of anesthesia, and loss of limb or life. The patient understands all the risks and does wish to proceed with written consent. .p Orders Orders: Coding Level of Care Code Off vis,est,level 4 Diagnoses Chondromalacia, left knee M94.262 Other internal derangements of left knee M23.8X2 Chronic pain of left knee M25.562; G89.29 Chronicity: chronic 08/15/17 1350 <Electronically signed by Danny Scherer DO> Date Danny Scherer DO Cosigner Signature: Date (if applicable) CC: BONE LENGTH Observed: 08/11/2017 Status: F Source: [place] 2:03 PM [facility] REPOSITORY [facility] Imaging Services [address] [place] [address] Bone Length MR#: [id number] Acct: [id number] Name: EUGENIO GONZÁLESNORBERTO L Rep #: [id number] : 1975 F 42 From: Lloyd Ruiz MD PCP: Care Physician, No Primary Status: REG CLI Study: Bone Length Date of Exam: 08/11/17 Exam# [id number] Ordering Dr: Danny Scherer DO STUDY: LEG LENGTH SCANOGRAM. REASON FOR EXAM: Female, 42 years old. Left knee pain. TECHNIQUE: Standing views of both lower extremities were performed. COMPARISON: None. FINDINGS: There is no evidence of leg length discrepancy. RAD/Bone Length IMPRESSION: No evidence of leg length discrepancy. Electronically Signed: Lloyd Ruiz MD at 13:39 EST Tel [phone], Service support , CC: No Primary Care Physician; Danny Scherer DO Tree Deadener: Signed LOWER EXT JOINT ONLY Observed: 07/30/2017 Status: F Source: [place] (ROUTINE) 11:08 AM [facility] REPOSITORY [facility] Imaging Services [address] [place] [address] Lower Ext Joint Only (Routine) MR#: [id number] Acct: [id number] Name: NORBERTO BARBER Rep #: [id number] : 1975 F 42 From: Maco Saldaña MD PCP: Care Physician, No Primary Status: REG CLI Study: Lower Ext Joint Only (Routine) Date of Exam: 07/30/17 Exam# [id number] Ordering Dr: Danny Scherer DO STUDY: MRI LEFT KNEE REASON FOR EXAM: Knee pain and instability. Previous cartilage surgery 21 years ago. TECHNIQUE: Standardized fat and water weighted pulse sequences were obtained in all 3 orthogonal planes. COMPARISON: Radiographs 12/23/2016. FINDINGS: There may be a small subtle horizontal tear of the inferior articular surface of the posterior horn of the medial meniscus, identified only on a single slice (proton-density sagittal image 12). Normal hyaline cartilage of the medial femorotibial compartment. There are small marginal osteophytes of the medial femorotibial compartment. Normal medial femoral condyle and tibial plateau. Normal medial collateral ligamentous complex (MCL). Normal distal semimembranosus, gracilis and semitendinosus tendons. There is attrition of the anterior horn of the lateral meniscus suggestive of partial lateral meniscectomy. There is a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 MCKOWNDOB: [facility][1] [id number] Hospital [address]Let: (419) Number: Repository [phone] () [id number] Date:5721-75-98HD [address] [place] [address]ZR: 10/27/2017 Secondary NOT GIVENUNK [place] Insurance:SELF PAY [facility] Number: Effective Repository Date:2017-10-27 10/15/2017 NORBERTOCLYDE BECKER Primary NORBERTO Brown [id number] [address] Insurance:PARAMOUNT MCKOWNDOB: [facility][1] [id number] Hospital [address]Fne: (419) Number: Repository [phone] () [id number] Date:7413-27-53YF [address] [place] [address]LQ: 10/15/2017 Secondary NOT GIVENUNK Kevin Insurance:SELF PAY [facility] Number: Effective Repository Date:2017-10-15 10/15/2017 NORBERTO BECKER Primary NORBERTO Brown [id number] [address] Insurance:PARAMOUNT MCKOWNDOB: [facility][1] [id number] Hospital [address]Qnz: (419) Number: Repository [phone] () [id number] Date:6940-27-13MI [address] [place] [address]WX: 10/15/2017 Secondary NOT GIVENUNK Kevin Insurance:SELF PAY [facility] Number: Effective Repository Date:2017-10-15 10/01/2017 NORBERTO BECKER Primary NORBERTO Brown [id number] [address] Insurance:PARAMOUNT MCKOWNDOB: [facility][1] [id number] Hospital [address]Whs: (419) Number: Repository [phone] () [id number] Date:9932-23-78HZ [address] [address]UE: 10/01/2017 Secondary NOT GIVENUNK Kevin Insurance:SELF PAY [facility] Number: Effective Repository Date:2017-10-01 10/01/2017 NORBERTO BECKER Primary NORBERTO Brown [id number] [place] Insurance:PARAMOUNT MCKOWNDOB: [facility][1] [id number] Hospital [address]Ale: (419) Number: Repository [phone] () [id number] Date:0560-05-58UB [address] [address]TK: 10/01/2017 Secondary NOT GIVENUNK [place] Insurance:SELF PAY [facility] Number: Effective Repository Date:2017-10-01 09/30/2017 NORBERTO BECKER Primary NORBERTO BECKER [facility] MCKOWNDOB: Insurance:PARAMOUNT MCKOWNDOB: Located [facility] Repository [facility] [id number] [place], MEDICAIDPolicy [place] [address]Hlt: Number: [place] [address] [id number] () Date:1012-25-44FW [address] [address]RL: 09/15/2017 NORBERTO BECKER Primary NORBERTO Brown [id number] [place] Insurance:PARAMOUNT MCKOWNDOB: [facility][1] [id number] Hospital [address]Zrp: (419) Number: Repository [phone] () [id number] Date:8937-74-21AP [facility] [address] [place] [address]UU: 09/15/2017 Secondary NOT GIVENUNK Kevin Insurance:SELF PAY [facility] Number: Effective Repository Date:2017-09-15 09/15/2017 NORBERTOCLYDE BECKER Primary NORBERTO BECKER [place] [id number] Insurance:PARAMOUNT MCKOWNDOB: [facility][1] [id number] Hospital [address]Pgg: (419) Number: Repository [phone] () [id number] Date:4906-95-99IT [address] [place] [address]XJ: 09/15/2017 Secondary NOT GIVENUNK [place] Insurance:SELF PAY [facility] Number: Effective Repository Date:2017-09-15 09/02/2017 NORBERTO L EUGENIO Primary NORBERTO L EUGENIO Kevin [id number] [address] Insurance:PARAMOUNT MCKOWNDOB: [facility][1] [id number] Hospital [address]Tab: (419) Number: Repository [phone] () [id number] Date:6989-84-95MY [address] [place] [address]AC: 09/02/2017 Secondary NOT GIVENUNK [place] Insurance:SELF PAY [facility] Number: Effective Repository Date:2017-08-13 09/02/2017 NORBERTO L EUGENIO Primary NORBERTO L EUGENIO Kevin [id number] Insurance:PARAMOUNT MCKOWNDOB: [facility][1] [id number] Hospital [address]Ywk: (419) Number: Repository [phone] () [id number] Date:4199-46-75AB [address] [place] [address]QY: 09/02/2017 Secondary NOT GIVENUNK Kevin Insurance:SELF PAY [facility] Number: Effective Repository Date:2017-09-02 09/02/2017 NORBERTO L EUGENIO Primary NORBERTO L EUGENIO Kevin [id number] Insurance:PARAMOUNT MCKOWNDOB: [facility][1] [id number] Hospital [address]Neq: (419) Number: Repository [phone] () [id number] Date:0196-56-33AX [address] [address]KW: 09/02/2017 Secondary NOT GIVENUNK [place] Insurance:SELF PAY [facility] Number: Effective Repository Date:2017-09-02 08/11/2017 NORBERTO BECKER Primary NORBERTO Brown [id number] [place] Insurance:PARAMOUNT MCKOWNDOB: [facility][1] [id number] Hospital [address]Nds: (419) Number: Repository [phone] () [id number] Date:4509-77-79ZZ [address] [address]CK: 08/11/2017 Secondary NOT GIVENUNK [place] Insurance:SELF PAY [facility] Number: Effective Repository Date:2017-08-11 08/11/2017 NORBERTO BECKER Primary NORBERTO BECKER Kevin [id number] Insurance:PARAMOUNT MCKOWNDOB: [facility][1] [id number] Hospital [address]Xbk: (419) Number: Repository [phone] () [id number] Date:3856-59-54ET [address] [address]SP: 08/11/2017 Secondary NOT GIVENUNK Kevin Insurance:SELF PAY [facility] Number: Effective Repository Date:2017-08-05 08/01/2017 Primary [facility]O [facility] Insurance:ParamountPo MCKOWNDOB: [place] Number: [id number] [place] [address] [id number] [facility], Repository Date:[facility] [address]Buq: Name:[facility] [place], [place] () [address]RK: 07/30/2017 NORBERTO BECKER Primary NORBERTO Brown [id number] [address] Insurance:PARAMOUNT MCKOWNDOB: [facility][1] [id number] Hospital [address]Flr: (419) Number: Repository [phone] (HP) [id number] Date:1467-82-45IT [address] [address]BJ: 07/30/2017 Secondary NOT GIVENUNK Kevin Insurance:SELF PAY [facility] Number: Effective Repository Date:2017-07-30 07/28/2017 Primary [facility] Insurance:ParamountPo MCKOWNDOB: [facility] Number: [id number] [facility] [id number] [facility], Repository Date:[place] [address]Wfr: Name:[facility] [place], [place] () [address]XI: 07/07/2017 Primary NORBERTO [facility] Insurance:ParamountPo MCKOWNDOB: [facility] Number: [id number] [facility] [id number] [facility], Repository Date:[place] [address]Lcw: Name:[facility] [place], [place] () [address]LH: 06/25/2017 Primary [facility] Insurance:ParamountPo MCKOWNDOB: [place] [facility] Number: [id number] [facility] [id number] [facility], Repository Date:[place] [address]Ggu: Name:[facility] [place], [place] () [address]RW: 06/25/2017 NORBERTO [facility]and [facility] Primary NORBERTO [facility] MCKOWNDOB: Insurance:PARAMOUNT MCKOWNDOB: Three Repository MANAGED [id number] [facility], [place]ICAIDPolicy [place] [address]Gpz: Number: [place] [address] [id number] ()Tel: (419) Date:5081-14-15AD [phone] (OY) [address] [address]BB: 06/25/2017 NORBERTO BECKER Primary NORBERTO [facility] MCKOWNDOB: Insurance:PARAMOUNT MCKOWNDOB: Three Repository MANAGED [id number] [place], [place]ICAIDPolicy [place] [address]Aax: Number: [place] [address] [id number] (HP) Date:1458-19-96XR [address] [address]MS: 06/23/2017 NORBERTOCLYDE BECKER Primary NORBERTO BECKER [place] [id number] [place] Insurance:PARAMOUNT MCKOWNDOB: [facility][1] [id number] Hospital [address]Svh: (419) Number: Repository [phone] () [id number] Date:2121-39-22MQ [address] [address]IS: 06/23/2017 Secondary NOT GIVENUNK Kevin Insurance:SELF PAY [facility] Number: Effective Repository Date:2017-06-11 06/13/2017 [facility] NOBRERTO [facility] Insurance:ParamountPo MCKOWNDOB: [place]eli Number: [id number] [facility] [id number] [facility], Repository Date:[place] [address]Vfa: Name:[facility] [place], [place] () [address]DP: 05/22/2017 NORBERTOCLYDE BECKER Primary NORBERTO BECKER Kevin [id number] [place] Insurance:PARAMOUNT MCKOWNDOB: [facility][1] [id number] Hospital [address]Tyg: (419) Number: Repository [phone] () [id number] Date:3350-31-69ZU [address] [place] [address]SN: 05/22/2017 Secondary NOT GIVENUNK [place] Insurance:SELF PAY [facility] Number: Effective Repository Date:2017-05-12
== END ==
PROVIDERS: Referring Provider Physician Assistant; Visit Provider Physician Assistant
DX: M25.552 Pain in left hip (principal)
CPT/HCPCS: 73502

== ENCOUNTER 2018-05-25 14:23 | Outpatient (RCR) | payer MEDICAID, SELFPAY ==
--- NOTE | 2018-05-26 13:27 | HP.OTFCE_ITS ---
HP OT Functional Capacity Eval - Task Lift Floor (Occasional 1-33% of Day): 20# Floor (Frequent 34-66% of Day): 10# Floor (Constant 67-100% of Day): NA Floor PDL: Light Knee (Occasional 1-33% of Day): 20# Knee (Frequent 34-66% of Day): 10# Knee (Constant 67-100% of Day): NA Knee PDL: Light Waist (Occasional 1-33% of Day): 20# Waist (Frequent 34-66% of Day): 10# Waist (Constant 67-100% of Day): NA Waist PDL: Light Shoulder (Occasional 1-33% of Day): 20# Shoulder (Frequent 34-66% of Day): 10# Shoulder (Constant 67-100% of Day): NA Shoulder PDL: Light Overhead (Occasional 1-33% of Day): 10# Overhead (Frequent 34-66% of Day): NA Overhead (Constant 67-100% of Day): NA Overhead PDL: Sedentary - Work Activity/Posture Bending: Occasional Ability (1-33% of day) Comments: Low occasional ability Squatting: Occasional Ability (1-33% of day) Comments: Low occasional ability Kneeling: No Ablility (0% of day) Reaching out: Frequent Ability (34-66% of day) Comments: while sitting Reaching up: Frequent Ability (34-66% of day) Comments: while sitting Sitting: Occasional Ability (1-33% of day) Comments: with shifting body weight Walking: Occasional Ability (1-33% of day) Comments: low occasional ability Standing: Occasional Ability (1-33% of day) Comments: low occasional ability with shifting body weight - Reference Duration Sedentary Sedentary Light Light Light Medium Medium Medium Heavy Very Heavy Heavy Occasional (0-33% of day) Frequent (34-66% of day) Constant (67-100% of day) 10 # Negligible Negligible 15 # 8 # Negligible 20 # 10# Negli. 35 # 18 # 7 # 50 # 25 # 10 # 75 # 100 # >100 # 38 # 50 # >50 # 15 # 20 # >20 # - Patient Information Height: 1.75 m Weight:: 111.13 kg Hand Dominance: Right - Medical History Medical History Including Restrictions: Client states she was in good health until 2007. Client states ten years ago she began having pain in her left knee. Client had multiple conservative knee interventions, but they were not helpful. Client states her left hip dx with bursitis and IT band syndrome dx in 2009 and back pain. Client states she did have a herniated disc in 2012 and in 2012 she had the discectomy. Client did continue to have difficulty and three years ago she had L5-L6 fusion. Client states she recovered well from her back sx. Client states she does exercise in the pool 2x week on her own. Client states in 2016 she underwent left IT band lengthening sx, with fair success. Client states she underwent a left femur osteotomy August 2017. Client feels this sx was successful. Client has been through many physical therapy sessions to rehab. Philomena chen states her spine surgeon told her not to lift more than 5-10# but client does not have anything written by her spine surgeon with her at this time. - Diagnoses Diagnoses: Elders Danlos syndrome dx 2012. High blood pressure dx 2017. Asthma dx 1997 - Symptoms Symptoms: Pain. Weakness. muscle spasms. left leg numbness - Pain Pain: Client states hip/back pain 12/16- thats with gabapentin 900mg a day. 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 client states that she helps with accounting and selling of products. client states if she is having a bad day her dad will pick her up and drive her home so she can rest. 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 Following back sx client was unable to continue with job duties and did not return to her position. - Behavioral Behavioral: Client cooperative and put good effort. - ADLS ADLS: Client state she lives in a two-story home with her . entry is three steps with one hand rail. 15 to second floor, bedroom and bathroom on second floor. Laundry is performed at laundry mat in small amounts. Client states her does sweeping, lifting and does help with cooking. Client states she does sit to fold laundry and will do dishes in short spurts. Client states she can shop about 20 min with a cart, if she uses the motor cart she can stand about an hour. Client does have her to assist with shopping. Client states her step-son does the yard work. Client drives short distances only due to clients increase in pain with driving. Client does use a wheel chair for distance, a standard walker, cane, has shower chair but does not use it much. Client does her own pool exercises 2x week. - Physical Examination Physical Examination: client noted to have left LE atrophy. Ankle right 24cm left 24cm. calf right 43cm left 40cm. Below knee right 38cm left 36cm. Above knee right 53cm left 48cm ROM: Client demo all ROM WNL -noted bilateral elbows hyper extend by 10 degrees. Strength: left hip flex 3+/5. left hip ABD/ADD 3+/5. All other LE manual muscle testing at 4/5. All UB manual muscle testing at 4+/5 grossly throughout Right Services Executive Strength Average: 70.00 Right Services Executive Strength Percentile: 43% Left Services Executive Strength Average: 58.33 Left Services Executive Strength Percentile: 28% Right Lateral Pinch Average: 10.66 Right Lateral Pinch Percentile: 10% Left Lateral Pinch Average: 10.00 Left Lateral Pinch Percentile: 25% Right Tripod Pinch Average: 12.00 Right Tripod Pinch Percentile: 25% Left Tripod Pinch Average: 10.00 Left Tripod Pinch Percentile: 25% Sensation: [place] monofilament sensory test. Bilateral digits tested at 2.83 (Normal Sensation) Fine Motor: 9 hole peg test- testing fine mortor skills-. right 21.68 sec=25%. left 26.60 sec = 10% Balance: No loss of balance during assessment. - Non Material Handling Activities Bending: Client demo the ability to bend forward three times, and ten times, clients back pain increased from 7/10 to 8/10 client was unable to bend forward times rapidly. Client can bend forward on a low occasional ability. Squatting: Client demo the ability to squat three times and ten times with external support, client was unable to squat ten times rapidly. The more the client performed her squatting depth decreased. Client can squat on a low occasional ability with use of external support. Kneeling: Client is unabl to kneel Reaching out/up: Client demo the ability to reach out/up three times, ten times and ten times rapidly, Client did perform while sitting. Client can reach out/up on a frequent ability while sitting. Walking: Client ambulated 3:24 min. with reciprocal step pattern and antalgic gait. Noted with increase ambulation distance external rotation of her left foot and slapping of left foot. Client complained of back muscle tightness and increase in pain to 8/10. After ambulation client given heat pack for 5 min she reported pain decreased 6/10. Client can ambulate on a low occasional ability. Standing: Client demo the ability to stand for 3min with shifting her body weight. Client can stand on a low occasional ability. Sitting: Client demo the ability to sit for 45 min with shifting her body weight. Client can sit on an occasional ability with given opportunities to shift her body weight. Climbing Stairs: Client demo the ability to ascend ten steps with right leg step up and use of bilateral hand rails. Descending use of bilateral rails and left leg down each step. - Dynamic Occasional Lifting Capacity Floor Lift: Client lifted 20# with attempt to lift 25# but was unable. Client can lift 20# maximally. Knee Lift: Client lifted 20# with attempt to lift 25# but was unable. Client can lift 20# maximally. Waist Lift: Client can lift 20# maximally. Shoulder Lift: Client can lift 20# maximally. Overhead Lift: Client can lift 10# maximally from this level. Carrying: client demo the ability to carry 10# for 40 feet- client carried wt against self. Client ambulates with increase in antalgic gait with carry. Comments: Client states following the lift client complained of a tightness in her back. Client demonstrated good lifting mechanics with lifting.
--- OUTSIDE RECORDS SUMMARY | 2018-08-27 06:47 | XMS RPT_ITS ---
:1975 Author Organization [place] Support Name Relationship Address Phone DANNY GNOZÁLES Unavailable [address] + [place] [address] DANNY GONZÁLES Unavailable [address] + [place] [address] D Unavailable Unavailable Unavailable DANNY GONZÁLES Unavailable [address] + [place] [address] DANNY GONZÁLES Unavailable [address] + [place] [address] D Unavailable Unavailable Unavailable DANNY GONZÁLES Unavailable [address] + [place] [address] D Unavailable Unavailable Unavailable DANNY GONZÁLES Unavailable [address] + [place] [address] DANNY GONZÁLES Unavailable [address] + [place] [address] DANNY GONZÁLES Unavailable [address] + [place] [address] DANNY GONZÁLES Unavailable [address] + [place] [address] DANNY GONZÁLES Unavailable [address] + [place] [address] DANNY GONZÁLES Unavailable [address] + [place] [address] DANNY GONZÁLES Unavailable [address] + [place] [address] DANNY GONZÁLES Unavailable [address] + [place] [address] DANNY GONZÁLES Unavailable [address] + [place] [address] DANNY GONZÁLES Unavailable [address] + [place] [address] DANNY GONZÁLES Unavailable [address] + [place] [address] D Unavailable Unavailable Unavailable DANNY GONZÁLES Unavailable [address] + [place] [address] D Unavailable Unavailable Unavailable DANNY GONZÁLES Unavailable [address] + [place] [address] DANNY GONZÁLES Unavailable [address] + [place] [address] DANNY GONZÁLES Unavailable [address] + [place] [address] DANNY GONZÁLES Unavailable [address] + [place] [address] D Unavailable Unavailable Unavailable DANNY GONZÁLES Unavailable [address] + [place] [address] D Unavailable Unavailable Unavailable DANNY GONZÁLES Unavailable [address] + [place] [address] DANNY GONZÁLES Unavailable [address] + [place] [address] DANNY GONZÁLES Unavailable [address] + [place] [address] D Unavailable Unavailable Unavailable DANNY GONZÁLES Unavailable [address] + [place] [address] D Unavailable Unavailable Unavailable DANNY GONZÁLES Unavailable [address] + [place] [address] D Unavailable Unavailable Unavailable DANNY GONZÁLES Unavailable [address] + [place] [address] D Unavailable Unavailable Unavailable DANNY GONZÁLES Unavailable [address] + [place] [address] D Unavailable Unavailable Unavailable DANNY GONZÁLES Unavailable [address] + [place] [address] D Unavailable Unavailable Unavailable DANNY GONZÁLES Unavailable [address] + [place] [address] DANNY GONZÁLES Unavailable [address] + [place] [address] D Unavailable Unavailable Unavailable NIVIA, DANNY Unavailable [address] + [place] [address] D Unavailable Unavailable Unavailable NIVIA, DANNY Unavailable [address] + [place] [address] D Unavailable Unavailable Unavailable NIVIA, DANNY Unavailable [address] + [place] [address] D Unavailable Unavailable Unavailable NIVIA, DANNY Unavailable [address] + [place] [address] D Unavailable Unavailable Unavailable NIVIA, DANNY Unavailable [address] + [place] [address] D Unavailable Unavailable Unavailable NIVIA, DANNY Unavailable [address] + [place] [address] D Unavailable Unavailable Unavailable NIVIA, DANNY Unavailable [address] + [place] [address] NIVIA, DANNY Unavailable [address] + [place] [address] NIVIA, DANNY Unavailable [address] + [place] [address] D Unavailable Unavailable Unavailable NIVIA, DANNY Unavailable [address] + [place] [address] NIVIA, DANNY Unavailable [address] + [place] [address] NIVIA, DANNY Unavailable [address] + [place] [address] Care Team Providers Name Role Phone Coco, Dr. Hansel Espinoza Admitting Unavailable Coco, Dr. Hansel Espinoza Attending Unavailable Viau, Dr. Danny Jaramillo Admitting Unavailable Viau, Dr. Danny Jaramillo Attending Unavailable Coco, Dr. Hansel Espinoza Admitting Unavailable Coco, Dr. Hansel Espinoza Attending Unavailable Stafford, Dr. Dariel Griffin Admitting Unavailable Stafford, Dr. Dariel Griffin Attending Unavailable Gilmer DODanny Admitting Unavailable Gilmer DO, Danny Lino Attending Unavailable Stafford, Dr. Dariel Griffin Admitting Unavailable Stafford, Dr. Dariel Griffin Attending Unavailable Viau, Dr. Danny Jaramillo Attending Unavailable Viau, Dr. Danny Jaramillo Admitting Unavailable Viau, Dr. Danny Jaramillo Attending Unavailable Viau, Dr. Dnany Jaramillo Admitting Unavailable CROUCH, DARIEL INGRAM Attending Unavailable CROUCH, PSYCHIATRIC Primary Care Unavailable AMIRNENI, HANSEL FOWLER Attending Unavailable CROUCH, PSYCHIATRIC Primary Care Unavailable VIAU, DANNY CAMACHO Attending Unavailable CROUCH, PSYCHIATRIC Primary Care Unavailable CROUCH, DARIELEFRAIN INGRAM Attending Unavailable CROUCH, PSYCHIATRIC Primary Care Unavailable AMIRNENI, HANSEL FOWLER Attending Unavailable CROUCH, PSYCHIATRIC Primary Care Unavailable VIAU, DANNY CAMACHO Attending Unavailable CROUCH, PSYCHIATRIC Primary Care Unavailable VIAU, DANNY CAMACHO Attending Unavailable CROUCH, PSYCHIATRIC Primary Care Unavailable VIAU, DANNY CAMACHO Attending Unavailable CROUCH, PSYCHIATRIC Primary Care Unavailable CROUCH, DARIEL INGRAM Attending Unavailable CROUCH, PSYCHIATRIC Primary Care Unavailable VIAU, DANNY CAMACHO Attending Unavailable CROUCH, PSYCHIATRIC Primary Care Unavailable VIAU, DANNY CAMACHO Attending Unavailable CROUCH, PSYCHIATRIC Primary Care Unavailable CROUCH, DARIEL INGRAM Attending Unavailable CROUCH, PSYCHIATRIC Primary Care Unavailable VIAU, DANNY CAMACHO Attending Unavailable CROUCH, PSYCHIATRIC Primary Care Unavailable VIAU, DANNY CAMACHO Attending Unavailable CROUCH, PSYCHIATRIC Primary Care Unavailable CROUCH, DARIEL JUAN JOSE Attending Unavailable CROUCH, PSYCHIATRIC Primary Care Unavailable VIAJorge, DANNY Jaramillo Attending Unavailable VIAJorge, DANNY Jaramillo Referring Unavailable SEBASTIAN MARROQUIN Primary Care Unavailable Danny Scherer Attending Unavailable Primay Care Physicia, No Primary Care Unavailable Danny Scherer Attending Unavailable Primay Care Physicia, No Referring Unavailable Primay Care Physicia, No Primary Care Unavailable Danny Scherer Attending Unavailable Primay Care Physicia, No Primary Care Unavailable Danny Scherer Attending Unavailable Primay Care Physicia, No Primary Care Unavailable Danny Scherer Referring Unavailable Danny Scherer Admitting Unavailable Danny Scherer Attending Unavailable Danny Scherer Referring Unavailable Primay Care Physicia, No Primary Care Unavailable Danny Scherer Consulting Unavailable Danny Scherer Admitting Unavailable Danny Scherer Attending Unavailable Danny Scherer Referring Unavailable Primay Care Physicia, No Primary Care Unavailable Danny Scherer Consulting Unavailable Danny Scherer Attending Unavailable Primay Care Physicia, No Referring Unavailable Primay Care Physicia, No Primary Care Unavailable Danny Scherer Attending Unavailable Danny Scherer Referring Unavailable Primay Care Physicia, No Primary [...] Danny Attending Unavailable Gilmer, Danny Referring Unavailable SEBASTIAN MARROQUIN Primary Care Unavailable Jessica, Emily Attending Unavailable DOCTOR, OUT OF TOWN Referring Unavailable SEBASTIAN MARROQUIN Primary Care Unavailable Jessica, Emily Attending Unavailable Jessica, Emily Referring Unavailable SEBASTIAN MARROQUIN Primary Care Unavailable Milton Cam Attending Unavailable DOCTOR, OUT OF TOWN Referring Unavailable Milton Cam Attending Unavailable Milton Cam Referring Unavailable SEBASTIAN MARROQUIN Primary Care Unavailable PROBLEMS PROBLEMS DATE TYPE CONDITION / CODE ATTENDING STATUS SOURCE 09/30/2017 Admitting Morbid (severe) CROUCH, [facility] diagnosis obesity due to DARIEL Chou excess calories / Repository E66.01(ICD-10) 09/30/2017 Admitting Body mass index CROUCH, [facility] diagnosis (bmi) 37.0-37.9, DARIEL Chou adult / Repository Z68.37(ICD-10) 08/04/2017 Admitting Gastro-esophageal [facility], [facility] diagnosis reflux disease DARIEL Chou without esophagitis Repository / K21.9(ICD-10) 05/14/2018 Admitting Other intervertebral VIAU, DANNY [facility] diagnosis disc degeneration, JANICE Chou lumbar region / Repository M51.36(ICD-10) 05/08/2018 Unknown M25.552 - Pain in Tutu Milton [facility] left hip / Community M25.552(ICD-10) Hospital Repository 04/29/2018 Admitting Other muscle spasm / CROUCH, [facility] diagnosis M62.838(ICD-10) DARIEL Chou Repository 03/17/2018 Admitting Low back pain / VIAU, DANNY [facility] diagnosis M54.5(ICD-10) JANICE Chou Repository 02/11/2018 Admitting Pain in thoracic VIAU, DANNY [facility] diagnosis spine / JANICE Chou M54.6(ICD-10) Repository 02/06/2018 Admitting Pain, unspecified / VIAU, DANNY [facility] diagnosis R52(ICD-10) JANICE [place] Repository 02/05/2018 Admitting Postlaminectomy VIAU, DANNY [facility]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, not JANICE Three elsewhere classified Repository / M96.1(ICD-10) 01/27/2018 Unknown M25.562 - Pain in Chic[place], [facility] left knee / Emily [facility] M25.562(ICD-10) Hospital Repository 12/17/2017 Admitting Type 2 diabetes CROUCH, [facility] diagnosis mellitus without DARIEL Chou complications / Repository E11.9(ICD-10) 09/30/2017 Admitting Body mass index CROUCH, [facility] diagnosis (bmi) 39.0-39.9, DARIEL Chou adult / Repository Z68.39(ICD-10) 08/04/2017 Admitting Kvng-Danlos CROUCH, [facility]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 / DARIEL Chou Q79.6(ICD-10) Repository 08/04/2017 Admitting Obstructive sleep CROUCH, [facility] diagnosis apnea (adult) DARIEL Chou (pediatric) / Repository G47.33(ICD-10) 10/01/2017 Unknown M17.12 - Unilateral Gilmer, Danny [facility] primary Community osteoarthritis, left Hospital knee / Repository M17.12(ICD-10) 09/30/2017 Admitting Obesity, unspecified CROUCH, Active [facility] diagnosis / E66.9(ICD-10) DARIEL Chou Repository 09/30/2017 Admitting Body mass index CROUCH, Active [facility] diagnosis (BMI) 40.0-44.9, DARIEL Chou adult / Repository Z68.41(ICD-10) 08/04/2017 Admitting Essential (primary) CROUCH, Active [facility] diagnosis hypertension / DARIEL Chou I10(ICD-10) Repository 08/04/2017 Admitting Moderate persistent CROUCH, Active [facility] diagnosis asthma, DARIEL Chou uncomplicated / Repository J45.40(ICD-10) 08/04/2017 Admitting Hypothyroidism, CROUCH, Active [facility] diagnosis unspecified / DARIEL Chou E03.9(ICD-10) Repository 01/03/2016 Admitting Bilateral primary CROUCH, Active [facility] diagnosis osteoarthritis of DARIEL Chou knee / M17.0(ICD-10) Repository 09/15/2017 Unknown M23.8X2 - Other GilmerDanny Active [facility] derangements of left Hospital knee / Repository M23.8X2(ICD-10) PROCEDURES PROCEDURES No Procedure Records FoundRESULTS RESULTS OT FUNCTIONAL CAPACITY Observed: 05/26/2018 Status: F Source: [place] EVAL 1:29 PM [facility] REPOSITORY [facility] Occupational Therapy [facility] [address] [place] [address] Fax REHABILITATION SERVICES INITIAL EVALUATION MR#: [id number] Acct: [id number] Name: NORBERTO BARBER Rep #: [id number] : 1975 42 From: Fanny Hunt OTR/L, CHT Referring Dr.: DANNY JOHNSON Status: REG RCR Insurance: [employer] [facility] Eval Date: SELF PAY INSURANCE HP OT [...] syndrome dx 2012. High blood pressure dx 2017. Asthma dx 1997 - Symptoms Symptoms: Pain. Weakness. muscle spasms. [...] rest. 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 Following [...] muscle testing at 4+/5 grossly throughout Right Billing Coordinator Strength Average: 70.00 Right Billing Coordinator Strength Percentile: 43% Left Billing Coordinator Strength Average: 58.33 Left Billing Coordinator Strength Percentile: 28% Right Lateral Pinch Average: 10.66 Right Lateral Pinch Percentile: 10% Left Lateral Pinch Average: 10.00 Left Lateral Pinch Percentile: 25% Right Tripod Pinch Average: 12.00 Right Tripod Pinch Percentile: 25% Left Tripod Pinch Average: 10.00 Left Tripod Pinch Percentile: 25% Sensation: Warren-Omayra monofilament sensory test. Bilateral digits tested at [...] mechanics with lifting. <Electronically signed by Fanny WINKLER/DAHLIA BolandT> 05/26/18 1329 CC: DANNY JOHNSON; OUT OF TOWN DOCTOR MK Signed For Medicare only, by signing this I certify the plan of care. Physicians Signature Date ORTHOPEDIC VISIT Observed: 05/11/2018 Status: F Source: [place] REPORT 11:01 AM [facility] REPOSITORY [facility] Orthopaedics AND Sports Medicine [address] [place] [address] OFFICE VISIT Date of Service: 05/07/18 MR#: [id number] Acct: [id number] Name: NORBERTO BARBER Rep #: [id number] : 1975 Provider: CRESCENCIO Cam Age/Sex: 42/F Location: [facility] Status: Signed Intake Intake Visit Reasons: LEFT [...] W/ PELVIS Observed: 05/07/2018 Status: F Source: [place] 2-3 VIEWS 10:45 AM [facility] REPOSITORY [facility] Imaging Services [address] [place] [address] HIP, UNI W/ Pelvis 2-3 Views MR#: [id number] Acct: [id number] Name: EUGENIO MARIEHARSHADNORBERTO L Rep #: [id number] : 1975 F 42 From: Milton Torres MD PCP: OUT OF TOWN DOCTOR Status: REG CLI Study: HIP, UNI W/ Pelvis 2-3 Views Date of Exam: 05/07/18 Exam# [id number] Ordering Dr: Milton Cam HISTORY: [facility] - [...] support , CC: CRESCENCIO Cam; OUT OF TOWN DOCTOR Digital Archivist: Signed SPINE THORACIC, 3 Observed: 02/11/2018 Status: F Source: [facility] VIEWS 2:49 PM [facility] REPOSITORY Final Report Accession No: [id number] Performed: Feb 11 2018 2:49PM Examination: [...] OR 3 Observed: 02/05/2018 Status: F Source: [facility] VIEWS 2:31 PM [facility] REPOSITORY Final Report Accession No: [id number] Performed: Feb 05 2018 2:31PM Examination: [...] ORTHOPEDIC VISIT Observed: 01/27/2018 Status: F Source: [place] RE[place] 1:49 PM [facility] Orthopaedics AND Sports Medicine [address] [place] [address] OFFICE VISIT Date of Service: 01/27/18 MR#: [id number] Acct: [id number] Name: NORBERTO BARBER Rep #: [id number] : 1975 Provider: Emily Lopez DO Age/Sex: 42/F Location: [facility] Status: Signed Intake Vital Signs01/27/18 Height 5 ft 9 in Intake Visit Reasons: LEFT KNEE Component Assembler Required: No Accompanied by: None Is patient [...] Status: Never smoker HPI LEFT KNEE: Details: ONRBERTO GONZÁLES is a 42 year old F [...] OR MORE Observed: 01/27/2018 Status: F Source: [place] Right On Interactive 10:49 AM [facility] REPOSITORY [facility] Imaging Services [address] [place] [address] Knee 4 or More Views MR#: [id number] Acct: [id number] Name: EUGENIO GONZÁLESNORBERTO Krystian Rep #: [id number] : 1975 F 42 From: Maco Saldaña MD PCP: OUT OF TOWN DOCTOR Status: REG CLI Study: Knee 4 or More Views Date of Exam: 01/27/18 Exam# [id number] Ordering Dr: Emily Lopez DO STUDY: X-RAY [...] Emily Lopez DO; OUT OF TOWN DOCTOR Digital Archivist: Signed ORTHOPEDIC VISIT Observed: 12/21/2017 Status: F Source: [place] REPORT 10:27 AM [facility] Orthopaedics AND Sports Medicine [address] [place] [address] OFFICE VISIT Date of Service: 12/15/17 MR#: [id number] Acct: [id number] Name: NORBERTO BARBER Rep #: [id number] : 1975 Provider: Danny Scherer DO Age/Sex: 42/F Location: [facility] Status: Signed Intake Intake Visit Reasons: LEFT [...] and results of previous back surgeries. ROS Musc Reports joint pain, Reports muscle weakness, Reports [...] UR RANDOM Collected: 12/16/2017 Status: F Source: [facility] PANEL 11:31 AM [facility] REPOSITORY TYPE CODE TESTS RESULT OUT OF RANGE REFERENCE UNITS LAB CREAURR mg/dL Normal 355.00 Creatinine, Urine Random Result Comment: No established reference range. LAB MIALB 0.0-1.8 mg/dL High Microalbumin, Urine Random 5.2 LAB MALB:CRU 0.0-25.0 MIALB/Creatinine Normal Ratio 15 Performed By: #### MIALBURR #### Unless otherwise noted, all testing performed by [facility] [address] [place], [place] [address] CLIA: [id number] Change Management Administrator: Da Cherry M.D. CBC WITH DIFF Collected: 12/16/2017 Status: F Source: [facility] 11:30 AM [facility] REPOSITORY TYPE CODE TESTS RESULT OUT OF [...] Basophil Normal % 0.4 Performed By: #### TSH, CMET, CBCDIF, LIPID #### Unless otherwise noted, all testing performed by [facility] [address] [place] [address] CLIA: [id number] Change Management Administrator: Da Cherry M.D. #### HBA1C #### Unless otherwise noted, all testing performed by [address] [address] CLIA: [id number] Change Management Administrator: Da Cherry M.D. COMPREHENSIVE METABOLIC Collected: 12/16/2017 Status: F Source: [facility] PANEL 11:30 AM [facility] REPOSITORY TYPE CODE TESTS RESULT OUT OF [...] used with caution. LAB eGFRB ml/min/1.73sq.m eGFR, -Bruneian >=60 Result Comment: GFR Calc LAB CALCM [...] 3.2-5.2 g/dL Albumin 3.6 Performed By: #### TSH, CMET, CBCDIF, LIPID #### Unless otherwise noted, all testing performed by [address] [address] CLIA: [id number] Change Management Administrator: Da Cherry M.D. #### HBA1C #### Unless otherwise noted, all testing performed by [place] [address] CLIA: [id number] Change Management Administrator: Da Cherry M.D. TSH Collected: 12/16/2017 Status: F Source: [facility] 11:30 AM [facility] REPOSITORY TYPE CODE TESTS RESULT OUT OF RANGE REFERENCE UNITS LAB TSH 0.32-5.00 uIU/mL Normal TSH 0.40 Result Comment: Samples from patients routinely receiving high dose biotin therapy (100-300 mg/day) may show falsely decreased results. Please correlate clinically. Performed By: #### TSH, CMET, CBCDIF, LIPID #### Unless otherwise noted, all testing performed by [address] [address] CLIA: [id number] Change Management Administrator: Da Cherry M.D. #### HBA1C #### Unless otherwise noted, all testing performed by [place] [address] CLIA: [id number] Change Management Administrator: Da Cherry M.D. LIPID PANEL Collected: 12/16/2017 Status: F Source: [facility] 11:30 AM [facility] REPOSITORY TYPE CODE TESTS RESULT OUT OF [...] times Average risk= 7.1 Performed By: #### TSH, CMET, CBCDIF, LIPID #### Unless otherwise noted, all testing performed by [address] [address] CLIA: [id number] Change Management Administrator: Da Cherry M.D. #### HBA1C #### Unless otherwise noted, all testing performed by [place] [address] CLIA: [id number] Change Management Administrator: Da Cherry M.D. HEMOGLOBIN A1C Collected: 12/16/2017 Status: F Source: [facility] 11:30 AM [facility] REPOSITORY TYPE CODE TESTS RESULT OUT OF REFERENCE UNITS RANGE LAB HBA1C 4.1-6.5 % High Hemoglobin A1C 6.8 Performed By: #### TSH, CMET, CBCDIF, LIPID #### Unless otherwise noted, all testing performed by [address] [address] CLIA: [id number] Change Management Administrator: Da Cherry M.D. #### HBA1C #### Unless otherwise noted, all testing performed by [place] [address] CLIA: [id number] Change Management Administrator: Da Cherry M.D. BONE LENGTH Observed: 12/15/2017 Status: F Source: [place] 12:50 PM [facility] REPOSITORY [facility] Imaging Services [address] [place] [address] Bone Length MR#: [id number] Acct: [id number] Name: NORBERTO BARBER Rep #: [id number] : 1975 F 42 From: Sourav Currie MD PCP: OUT OF TOWN DOCTOR Status: REG CLI Study: Bone Length Date of Exam: 12/15/17 Exam# [id number] Ordering Dr: Danny Scherer DO STUDY: X-RAY [...] Danny Scherer DO; OUT OF TOWN DOCTOR Digital Archivist: Signed ORTHOPEDIC VISIT Observed: 11/05/2017 Status: F Source: [place] REPORT 9:55 AM [facility] Orthopaedics AND Sports Medicine [address] [place] [address] OFFICE VISIT Date of Service: 10/27/17 MR#: [id number] Acct: [id number] Name: NORBERTO BARBER Rep #: [id number] : 1975 Provider: Danny Scherer DO Age/Sex: [...] Danny Scherer DO> Date Danny Scherer DO Cosign Signature: Date (if applicable) CC: ORTHOPEDIC VISIT Observed: 10/29/2017 Status: F Source: [place] RE[place] 7:40 AM [facility] Orthopaedics AND Sports Medicine [address] [place] [address] OFFICE VISIT Date of Service: 10/15/17 MR#: [id number] Acct: [id number] Name: NORBERTO BARBER Rep #: [id number] : 1975 Provider: Danny Scherer DO Age/Sex: 42/F Location: [facility] Status: Signed Intake Intake Visit Reasons: LEFT [...] OR MORE Observed: 10/27/2017 Status: F Source: [place] VIEWS 1:38 PM [facility] REPOSITORY [facility] Imaging Services [address] [place] [address] Knee 4 or More Views MR#: [id number] Acct: [id number] Name: EUGENIOEMORY GONZÁLESNORBERTO L Rep #: [id number] : 1975 F 42 From: Ai De La Vega MD PCP: Care Physician, No Primary Status: REG CLI Study: Knee 4 or More Views Date of Exam: 10/27/17 Exam# [id number] Ordering Dr: Danny Scherer DO XR Knee [...] No Primary Care Physician; Danny Scherer DO Digital Archivist: Signed ORTHOPEDIC VISIT Observed: 10/16/2017 Status: F Source: [place] 10:31 AM [facility] Orthopaedics AND Sports Medicine [address] [place] [address] OFFICE VISIT Date of Service: 10/01/17 MR#: [id number] Acct: [id number] Name: NORBERTO BARBER Rep #: [id number] : 1975 Provider: Danny Scherer DO Age/Sex: 42/F Location: [facility] Status: Signed Intake Intake Visit Reasons: LEFT [...] MORE Observed: 10/15/2017 Status: F Source: [place] 10:34 AM [facility] REPOSITORY [facility] Imaging Services [address] [place] [address] Knee 4 or More Views MR#: [id number] Acct: [id number] Name: NORBERTO BARBER Rep #: [id number] : 1975 F 42 From: Mario Lazcano MD PCP: Care Physician, No Primary Status: REG CLI Study: Knee 4 or More Views Date of Exam: 10/15/17 Exam# [id number] Ordering Dr: Danny Scherer DO STUDY: X-RAY [...] No Primary Care Physician; Danny Scherer DO Digital Archivist: Signed KNEE 4 OR MORE Observed: 10/01/2017 Status: F Source: [place] VIEWS 12:53 PM [facility] REPOSITORY [facility] Imaging Services [address] [place] [address] Knee 4 or More Views MR#: [id number] Acct: [id number] Name: EUGENIOEMORY GONZÁLESNORBERTO L Rep #: [id number] : 1975 F 42 From: Evens Peña MD PCP: Care Physician, No Primary Status: REG CLI Study: Knee 4 or More Views Date of Exam: 10/01/17 Exam# [id number] Ordering Dr: Danny Scherer DO STUDY: X-RAY [...] No Primary Care Physician; Danny Scherer DO Digital Archivist: Signed ORTHOPEDIC VISIT Observed: 09/18/2017 Status: F Source: [place] REPORT 8:51 AM [facility] Orthopaedics AND Sports Medicine [address] [place] [address] OFFICE VISIT Date of Service: 09/15/17 MR#: [id number] Acct: [id number] Name: EUGENIO GONZÁLESNORBERTO Krystian Rep #: [id number] : 1975 Provider: Danny Scherer DO Age/Sex: 42/F Location: [facility] Status: Signed Intake Intake Visit Reasons: LEFT [...] Danny Scherer DO> Date Danny Scherer DO [facility] Signature: Date (if applicable) CC: KNEE 4 OR MORE Observed: 09/15/2017 Status: F Source: [place] VIEWS 1:02 PM [facility] REPOSITORY [facility] Imaging Services [address] [place] [address] Knee 4 or More Views MR#: [id number] Acct: [id number] Name: EUGENIO MARIEKOWNNORBERTO Krystian Rep #: [id number] : 1975 F 42 From: Mario Lazcano MD PCP: Care Physician, No Primary Status: REG CLI Study: Knee 4 or More Views Date of Exam: 09/15/17 Exam# [id number] Ordering Dr: Danny Scherer DO STUDY: X-RAY - LEFT KNEE REASON FOR EXAM: Female, 42 years old. Pain, post op 2 weeks TECHNIQUE: 4 view(s) of the knee. COMPARISON: 3.27.18 FINDINGS: There is a metal sideplate transfixing [...] No Primary Care Physician; Danny Scherer DO Digital Archivist: Signed DISCHARGE INSTRUCTION Observed: 09/03/2017 Status: F Source: KEVIN 8:01 AM [facility] REPOSITORY [facility] Medical Records Department [address] [place] [address] Instructions for Home/Discharge Instructions 09/03/17 0758 MR#: [id number] Acct: [id number] Name: NORBERTO BARBER Rep #: [id number] : 1975 42 From: Danny Scherer DO [...] PRN #10 cap 03/25/17 Hydrocodone Bitart/Apap 5-325 [Grover 5/325] 1 - 2 tab PO Q6H [...] OPERATIVE REPORT Observed: 09/02/2017 Status: F Source: [place] 1:53 PM [facility] REPOSITORY [facility] Medical Records Department [address] [place] [address] Operative Report 09/02/17 1345 MR#: [id number] Acct: [id number] Name: NORBERTO BARBER Rep #: [id number] : 1975 42 From: Danny Scherer DO PCP: Care Physician, No Primary Status: [facility] [place] [facility] Y Location: [facility] [place] [facility] [id number] Report of Operation Date of Procedure: 09/02/17 [...] and probable distal femoral osteotomy with cartilage druze procedure in a staged timeframe. Patient agreed [...] We then reapproximated the IT band with ohcpsq-xs-vzbra technique using 0 Vicryl.. Soft tissues were [...] time. Any major issues please contact me. grommet machine operator: Christi Mayers Type of Anesthesia:: General [...] STIM HORMONE Collected: 09/02/2017 Status: F Source: [place] (TSH) 8:38 AM [facility] REPOSITORY TYPE CODE TESTS RESULT OUT OF RANGE REFERENCE UNITS LAB L501.9520 0.358-3.74 uIU/mL Normal TSH 2.99 Performed By: #### L400.7600, L501.9520 #### [facility] [address] [place], [place], [address] ,URINE Collected: 09/02/2017 Status: F Source: [place] 8:20 AM [facility] REPOSITORY TYPE CODE TESTS RESULT OUT OF REFERENCE UNITS RANGE LAB L400.8000 Negative Normal HCGUQUAL Negative Result Comment: Very dilute urine specimens, as indicated by a low specific gravity, may not contain enrollment representative levels of hCG. If is still suspected, a first morning urine specimen should be collected 48 hours later and tested. Performed By: #### L400.7600, L501.9520 #### [facility] [address] [facility] [place], [address] KNEE 1 OR 2 VIEWS Observed: 09/02/2017 Status: F Source: [place] 7:04 AM [facility] REPOSITORY [facility] Imaging Services [address] [place] [address] Knee 1 or 2 Views MR#: [id number] Acct: [id number] Name: NORBERTO BARBER Rep #: [id number] : 1975 F 42 From: Tano Flood MD PCP: Care Physician, No Primary Status: DIS CHACHO Study: Knee 1 or 2 Views Date of Exam: 09/02/17 Exam# [id number] Ordering Dr: Danny Scherer DO STUDY: X-RAY [...] No Primary Care Physician; Danny Scherer DO Digital Archivist: Signed KNEE 1 OR 2 VIEWS Observed: 09/02/2017 Status: F Source: [place] 12:12 AM [facility] REPOSITORY [facility] Imaging Services [address] [place] [address] Knee 1 or 2 Views MR#: [id number] Acct: [id number] Name: NORBERTO BARBER Rep #: [id number] : 1975 F 42 From: Kay Enrique MD PCP: Care Physician, No Primary Status: DIS [place] Study: Knee 1 or 2 Views Date of Exam: 09/02/17 Exam# [id number] Ordering Dr: Danny Scherer DO STUDY: X-RAY [...] Enrique MD at 13:48 EDT Tel Direct: [phone], Service support , CC: No Primary Care Physician; Danny Scherer DO Digital Archivist: Signed ORTHOPEDIC VISIT Observed: 08/15/2017 Status: F Source: [place]EV[place] REPORT 1:50 PM [facility] REPOSITORY [facility] Orthopaedics AND Sports Medicine [address] [place] [address] OFFICE VISIT Date of Service: 08/11/17 MR#: [id number] Acct: [id number] Name: NORBERTO BARBER Rep #: [id number] : 1975 Provider: Danny Scherer DO Age/Sex: 42/F Location: [facility] Status: Signed Intake Intake Visit Reasons: LEFT [...] 03/25/17 [Rx Confirmed 08/11/17] Hydrocodone Bitart/Apap 5-325 [Grover 5/325] 1 - 2 tab PO Q6H [...] the cartilage and whether or not cartilage druze procedure as a staged procedure will be [...] BONE LENGTH Observed: 08/11/2017 Status: F Source: [place]EV[place] 2:03 PM [facility] REPOSITORY [facility] Imaging Services [address] [place] [address] Bone Length MR#: [id number] Acct: [id number] Name: NORBERTO BARBER Rep #: [id number] : 1975 F 42 From: Lloyd Ruiz MD PCP: Care Physician, No Primary Status: REG CLI Study: Bone Length Date of Exam: 08/11/17 Exam# [id number] Ordering Dr: Danny Scherer DO STUDY: LEG LENGTH SCANOGRAM. REASON FOR EXAM: Female, 42 years old. Left knee pain. TECHNIQUE: Standing views of both lower extremities were performed. COMPARISON: None. FINDINGS: There is no evidence of leg length discrepancy. RAD/Bone Length IMPRESSION: No evidence of leg length discrepancy. Electronically Signed: Lloyd Ruiz MD at 13:39 EST Tel [phone], Service support , CC: No Primary Care Physician; Danny Scherer DO Digital Archivist: Signed LOWER EXT JOINT ONLY Observed: 07/30/2017 Status: F Source: KEVIN (ROUTINE) 11:08 AM [facility] REPOSITORY [facility] Imaging Services [address] [place] [address] Lower Ext Joint Only (Routine) MR#: [id number] Acct: [id number] Name: NORBERTO BARBER Rep #: [id number] : 1975 F 42 From: Maco Saldaña MD PCP: Care Physician, No Primary Status: REG CLI Study: Lower Ext Joint Only (Routine) Date of Exam: 07/30/17 Exam# [id number] Ordering Dr: Danny Scherer DO STUDY: MRI [...] No Primary Care Physician; Danny Scherer DO Digital Archivist: Signed ALLERGIES ALLERGIES DATE TYPE / CODE NAME / CODE REACTION SEVERITY SOURCE 05/07/2018 Drug No Known Unknown Kevin Allergy/416 Allergies/[id number] [facility] 177782([facility] 88(RXNORM) [facility] ED CT) Repository DRUG AMOXICILLIN Diarrhea [facility] INGREDI/419 Three Repository 181405([facility] ED CT) ENCOUNTERS ENCOUNTERS ADMIT/DISCHARGE ACCOUNT NUMBER ADMITTING ENCOUNTER LOCATION SOURCE CLASS 06/15/2018/06/15/19 [id number] Ambulatory Building:[place] [address] PCPWMAINST Three Repository 05/26/2018 [id number] Ambulatory Building:[facility] [place] Three SSNER Repository 05/25/2018 [id number] Ambulatory [facility] ding:OT Repository 05/14/2018/05/14/20 [id number] Ambulatory Building:[place] [address] ORTHOGLESSNE Three R Repository 05/07/2018 [id number] Ambulatory [facility] ding:HPRAD Repository 05/07/2018/05/07/20 [id number] Ambulatory BMSBuilding: [address] Repository 04/29/2018/04/29/20 [id number] Ambulatory Building:[place] [address] PCPWMAINST Three Repository 04/13/2018 [id number] Ambulatory Building:[facility] Three SSNER Repository 03/17/2018/03/21/20 [id number] Ambulatory Building:[address] Three R Repository 02/25/2018 [id number] Ambulatory Building:[facility] Three Repository 02/19/2018 [id number] Gilmer KERN, Ambulatory [facility] Repository 02/11/[id number] Nicolasa Ambulatory [facility] Repository 02/11/2018/02/12/20 [id number] Ambulatory Building:[address] Three R Repository 02/06/2018 [id number] Ambulatory Building:[facility] R Repository 02/05/[id number] Nicolasa Ambulatory [facility] Repository 02/05/2018/02/06/20 [id number] Ambulatory Building:[address] R Repository 01/27/2018 [id number] Ambulatory [facility] ding:HPRAD Repository 01/27/2018/01/28/20 [id number] Ambulatory BMSBuilding: [place] [facility] Repository 12/23/2017 [id number] Ambulatory Building:[facility] Three Repository 12/17/2017/12/18/19 [id number] Ambulatory Building:[address] Three Repository 12/16/[id number] Gloria Ambulatory [facility] Repository 12/15/2017 [id number] Ambulatory [facility] ding:HPRAD Repository 12/15/2017/12/16/19 [id number] Ambulatory BMSBuilding: [place] 18 [facility] Repository 12/03/2017 [id number] Ambulatory Building:[facility] Three SSNER Repository 11/10/2017 [id number] Ambulatory Building:[facility] Three Repository 10/27/2017 [id number] Ambulatory [facility] ding:HPRAD Repository 10/27/2017/10/28/19 [id number] Ambulatory BMSBuilding: [place] 18 [facility] Repository 10/15/2017 [id number] Ambulatory [facility] ding:HPRAD Repository 10/15/2017/10/16/19 [id number] Ambulatory BMSBuilding: Kevin 18 [facility] Repository 10/01/2017 [id number] Ambulatory [facility] ding:HPRAD Repository 10/01/2017/10/02/19 [id number] Ambulatory BMSBuilding: [place] 18 [facility] Repository 09/30/2017/10/01/19 [id number] Ambulatory Building:[address] Repository 09/15/2017 [id number] Ambulatory [facility] ding:HPRAD Repository 09/15/2017/09/16/19 [id number] Ambulatory BMSBuilding: [place] 18 [facility] Repository 09/02/2017/09/04/19 [id number] Danny Scherer Ambulatory [address] ding:WG3Guoi Repository : VH658Cxm: 1 09/02/2017 [id number] Danny Scherer Ambulatory BMSBuilding: Kevin BMS.[facility] Repository 09/02/2017 [id number] Ambulatory BMSBuilding: [place] [facility]MS.[facility] Repository 08/11/2017 [id number] Ambulatory [facility] ding:HPRAD Repository 08/11/2017/08/12/19 [id number] Ambulatory BMSBuilding: [place] 18 [facility] Repository 08/06/[id number] Coco Ambulatory [facility] Repository 08/01/[id number] Gloria Ambulatory [facility] Repository 07/30/2017 [id number] Ambulatory [facility] ding:MRI Repository 07/28/[id number] Nicolasa Ambulatory [facility] Repository 07/07/[id number] Coco [facility] Repository PAYERS PAYERS ENCOUNTER GUARANTOR PAYER SUBSCRIBER SOURCE 06/15/2018 NORBERTO BECKER Primary [facility] Insurance:PARAMOUNT MCKOWNDOB: Three Repository MANAGED [id number] [place], MEDICAIDPolicy [place] [address]Iny: Number: [place] [address] [id number] (HP) Date:8125-66-91[address] [address]UR: 05/26/2018 NORBERTO BECKER Primary [facility]: Insurance:PARAMOUNT MCKOWNDOB: Three Repository MANAGED [id number] [place] [address], MEDICAIDPolicy [place] [address]Jee: Number: [place] [address] [id number] (HP) Date:7480-91-43JQ [address] [address]HY: 05/25/2018 NORBERTO BECKER Primary [facility]ECKER [facility] [place] Insurance:PARAMOUNT MCKOWNDOB: [facility] [id number] Hospital [address]Jgi: 419) Number: Repository [phone] () [id number] Date:2090-22-37TV [address] [address]ID: 05/25/2018 Secondary NOT GIVENUNK [place] Insurance:SELF PAY [facility] Number: Effective Repository Date:2018-05-21 05/14/2018 NORBERTO BECKER Primary [facility]ERTO [facility]: Insurance:PARAMOUNT MCKOWNDOB: Three Repository MANAGED [id number] [place], MEDICAIDPolicy [place] [address]Jwi: Number: [place] [address] [id number] (HP) Date:2738-06-19KQ [address] [place] [address]QA: 05/07/2018 NORBERTO L EUGENIO Primary NORBERTO BECKER Kevin [id number] [place] Insurance:PARAMOUNT MCKOWNDOB: [facility] [id number] Hospital [address]Ryu: (419) Number: Repository [phone] () [id number] Date:0729-18-59XF [address] [address]ZY: 05/07/2018 Secondary NOT GIVENUNK [place] Insurance:SELF PAY [facility] Number: Effective Repository Date:2018-05-07 05/07/2018 NORBERTO L EUGENOI Primary NORBERTO L EUGENIO [facility] [place] Insurance:PARAMOUNT MCKOWNDOB: [facility] [id number] Hospital [address]Huw: (419) Number: Repository [phone] () [id number] Date:4519-64-59OU [address] [address]XD: 05/07/2018 Secondary NOT GIVENUNK [place] Insurance:SELF PAY [facility] Number: Effective Repository Date:2018-04-16 04/29/2018 NORBERTO L EUGENIO Primary NORBERTO BECKER [facility] MCKOWNDOB: Insurance:PARAMOUNT MCKOWNDOB: Three Repository MANAGED [id number] [place] [address], MEDICAIDPolicy [place], [place] [address]Ldj: Number: [place] [id number] [id number] (HP) Date:3067-64-17DG [address] [place] [address]YI: 04/13/2018 NORBERTO L EUGENIO Primary [facility] L [facility] Insurance:PARAMOUNT MCKOWNDOB: Three Repository MANAGED [id number] [facility], MEDICAIDPolicy [place] [address]Zyp: Number: [place] [address] [id number] (HP) Date:3868-26-26EQ [address] [place] [address], [place] [address]OM: 03/17/2018 NORBERTO BECKER Primary NORBERTO Boland [facility] MCKOWNDOB: Insurance:PARAMOUNT MCKOWNDOB: Three Repository MANAGED [id number] [facility], MEDICAIDPolicy [place] [address]Ene: Number: [place] [address] [id number] (HP) Date:6086-45-73GI [address] [place] [address]VB: 02/25/2018 NORBERTO BECKER [facility]ERTO [facility]: Insurance:PARAMOUNT MCKOWNDOB: Three Repository MANAGED [id number] [facility], [place]ICA[place] [address]Kps: [place]: [place] [address] [id number] (HP) Date:5375-30-58FC [address] [place] [address]NN: 02/19/2018 Primary [facility] Insurance:ParamountPo MCKOWNDOB: [place] Number: [id number] [facility] [id number] [facility], Repository Date:Plan [place] [address]Nsw: [facility] [place] (HP) [address]BS: 02/11/2018 Primary [facility] Insurance:ParamountPo MCKOWNDOB: [place] Number: [id number] [facility] [id number] [facility], Repository Date:[place] [address]Atj: Name:HealthElectronic [facility], [place] (HP) [phone]: 02/11/2018 NORBERTO L [facility] MCKOWNDOB: Insurance:PARAMOUNT MCKOWNDOB: Three Repository MANAGED [id number] [facility], MEDICAID[place] [address]Joi: Number: [place] [address] [id number] (HP) Date:8635-38-10QR [address] [place] [address]TN: 02/06/2018 NORBERTO L [facility] MCKOWNDOB: Insurance:PARAMOUNT MCKOWNDOB: Three Repository MANAGED [id number] [facility], MEDICAIDPolicy [place] [address]Wvw: Number: [place] [address] [id number] () Date:0092-17-93HR [address] [place] [address], [place] [address]GE: 02/05/2018 [facility] Insurance:ParamountPo MCKOWNDOB: [place] Number: [id number] [facility] [id number] [facility], Repository Date:Plan [place] [address]Fan: Name:HealthElectronic [facility], [place] (HP) [address]YW: 02/05/2018 [facility]BERTO L [facility] Insurance:PARAMOUNT MCKOWNDOB: Three Repository MANAGED [id number] [facility], MEDICAID[place] [address]Xbv: Number: [place] [address] [id number] (HP) Date:8068-68-01CW [address] [address]EQ: 01/27/2018 NORBERTO BECKER Primary NORBERTO BECKER [facility] [place] Insurance:PARAMOUNT MCKOWNDOB: [facility] [id number] Hospital [address]Vec: (419) Number: Repository [phone] () [id number] Date:8721-75-72FZ [facility] [address] [place] [address]BF: 01/27/2018 Secondary NOT GIVENUNK Kevin Insurance:SELF PAY [facility] Number: Effective Repository Date:2018-01-27 01/27/2018 NORBERTO BECKER Primary NORBERTO [facility]ECKER [facility] [place] Insurance:PARAMOUNT MCKOWNDOB: [facility] [id number] Hospital [address]Por: (419) Number: Repository [phone] () [id number] Date:6964-61-24GC [address] [address]OW: 01/27/2018 Secondary NOT GIVENUNK [place] Insurance:SELF PAY [facility] Number: Effective Repository Date:2018-01-27 12/23/2017 NORBERTO BECKER Primary NORBERTO Boland [facility] MCKOWNDOB: Insurance:PARAMOUNT MCKOWNDOB: Three Repository MANAGED [id number] [place], MEDICAIDPolicy [place] [address]Fjh: Number: [place] [address] [id number] (HP) Date:6300-91-68KM [address] [address]XR: 12/17/2017 NORBERTO Boland [facility] MCKOWNDOB: Insurance:PARAMOUNT MCKOWNDOB: Three Repository MANAGED [id number] [place], MED[place]Policy [place] [address]Fdv: Number: [place] [address] [id number] (HP) Date:8584-90-54HC [address] [address]LN: 12/16/2017 Primary NORBERTO L EUGENIO [facility] Insurance:Paramount MCKOWNDOB: [place] and qievelyn Number: [id number] [facility] [id number] [facility], Repository Date:[facility] [address]Cuh: Name:[facility] [place], [place] () [address]CH: 12/15/2017 NORBERTO L EUGENIO Primary NORBERTO L EUGENIO Kevin [id number] [place] Insurance:PARAMOUNT MCKOWNDOB: [facility] [id number] Hospital [address]Skq: (419) Number: Repository [phone] () [id number] Date:7403-78-17VL [address] [place] [address]GV: 12/15/2017 Secondary NOT GIVENUNK [place] Insurance:SELF PAY [facility] Number: Effective Repository Date:2017-12-15 12/15/2017 NORBERTO L EUGENIO Primary NORBERTO L EUGENIO [place] [id number] [place] Insurance:PARAMOUNT MCKOWNDOB: [facility] [id number] Hospital [address]Zbd: (419) Number: Repository [phone] () [id number] Date:0979-31-28HU [address] [place] [address]FU: 12/15/2017 Secondary NOT GIVENUNK [place] Insurance:SELF PAY [facility] Number: Effective Repository Date:2017-12-15 12/03/2017 NORBERTO L EUGENIO Primary NORBERTO L EUGENIO [facility] MCKOWNDOB: Insurance:PARAMOUNT MCKOWNDOB: Three Repository MANAGED [id number] [place] [address], MEDICAIDPolicy [place] [address]Mol: Number: [place] [address] [id number] (HP) Date:5575-15-13MX [address] [address]KR: 11/10/2017 NORBERTO BECKER Primary NORBERTO Boland EUGENIO [facility] MCKOWNDOB: Insurance:PARAMOUNT MCKOWNDOB: Three Repository MANAGED [id number] [place] [address], MEDICAIDPolicy [place] [address]Ewj: Number: [place] [address] [id number] (HP) Date:2685-49-41AG [address] [address]UX: 10/27/2017 NORBERTO BECKER Primary NORBERTO BECKER [facility] HospitalK[facility] [place] Insurance:PARAMOUNT MCKOWNDOB: [facility] [id number] Hospital [address]Xax: (419) Number: Repository [phone] () [id number] Date:9994-65-30EA [facility] [address] [place] [address]QM: 10/27/2017 Secondary NOT GIVENUNK [place] Insurance:SELF PAY [facility] Number: Effective Repository Date:2017-10-27 10/27/2017 NORBERTO BECKER Primary NORBERTO [facility]ECKER [facility] [place] Insurance:PARAMOUNT MCWNDOB: [facility] [id number] Hospital [address]Zku: 419) Number: Repository [phone] () [id number] Date:1737-49-88EU [address] [place] [address]MT: 10/27/2017 Secondary NOT GIVENUNK [place] Insurance:SELF PAY [facility] Number: Effective Repository Date:2017-10-27 10/15/2017 NORBERTO BECKER Primary NORBERTO Brown [id number] [place] Insurance:PARAMOUNT MCKOWNDOB: [facility] [place] [facility] [id number] Hospital [address]Cyi: (419) Number: Repository [phone] () [id number] Date:5759-67-30DV [address] [place] [address]KU: 10/15/2017 Secondary NOT GIVENUNK Kevin Insurance:SELF PAY [facility] Number: Effective Repository Date:2017-10-15 10/15/2017 NORBERTO BECKER [place] [id number] [place] Insurance:PARAMOUNT MCKOWNDOB: [facility] ADVANT[place] [facility] [id number] Hospital [address]Nwn: (419) Number: Repository [phone] () [id number] Date:2157-04-87VI [address] [place] [address]DB: 10/15/2017 Secondary NOT GIVENUNK [place] Insurance:SELF PAY [facility] Number: Effective Repository Date:2017-10-15 10/01/2017 NORBERTO BECKER Primary NORBERTO BECKER [place] [id number] [place] Insurance:PARAMOUNT MCKOWNDOB: [facility] ADVANTAGE [facility] [id number] Hospital [address]Ngw: (419) Number: Repository [phone] () [id number] Date:5587-52-26SW [address] [place] [address]LV: 10/01/2017 Secondary NOT GIVENUNK [place] Insurance:SELF PAY [facility] Number: Effective Repository Date:2017-10-01 10/01/2017 NORBERTO BECKER Primary NORBERTO BECKER [place] [id number] [place] Insurance:PARAMOUNT MCKOWNDOB: [facility] [id number] Hospital [address]Bgf: (419) Number: Repository [phone] () [id number] Date:8865-73-81VN [address] [place] [address]HX: 10/01/2017 Secondary NOT GIVENUNK [place] Insurance:SELF PAY [facility] Number: Effective Repository Date:2017-10-01 09/30/2017 NORBERTO L EUGENIO Primary NORBERTO Boland [facility] MCKOWNDOB: Insurance:PARAMOUNT MCKOWNDOB: Three Repository [facility] [id number] [place], MEDICAIDPolicy [place] [address]Fvt: Number: [place] [address] [id number] (HP) Date:4922-88-18UU [address] [place] [address]HH: 09/15/2017 NORBERTOCLYDE BECKER Primary NORBERTO BCEKER Kevin [id number] [place] Insurance:PARAMOUNT MCKOWNDOB: [facility] [id number] Hospital [address]Izf: (419) Number: Repository [phone] () [id number] Date:3944-03-42QJ [facility] [address] [place] [id number]: 09/15/2017 Secondary NOT GIVENUNK Kevin Insurance:SELF PAY [facility] Number: Effective Repository Date:2017-09-15 09/15/2017 NORBERTO L EUGENIO Primary NORBERTO BECKER Sunshine [id number] [place] Insurance:PARAMOUNT MCKOWNDOB: [facility] [id number] Hospital [address]Fyp: [phone]) Number: Repository [phone] () [id number] Date:[id number] [facility] [address] [place] [id number]: 09/15/2017 Secondary NOT GIVENUNK Kevin Insurance:SELF PAY [facility] Number: Effective Repository Date:2017-09-15 09/02/2017 NORBERTO BECKER Primary NORBERTO Brown [id number] [place] Insurance:PARAMOUNT MCKOWNDOB: [facility] [id number] Hospital [address]Mae: [phone]) Number: Repository [phone] () [id number] Date:3499-30-78CM [address] [place] [id number]: 09/02/2017 Secondary NOT GIVENUNK Kevin Insurance:SELF PAY [facility] Number: Effective Repository Date:2017-08-13 09/02/2017 NORBERTO BECKER Primary NORBERTO BECKER Kevin [id number] [place] Insurance:PARAMOUNT MCKOWNDOB: [facility] [id number] Hospital [address]Vlg: [phone]) Number: Repository [phone] () [id number] Date:1557-84-63DF [address] [place] [address]HD: 09/02/2017 Secondary NOT GIVENUNK Kevin Insurance:SELF PAY [facility] Number: Effective Repository Date:2017-09-02 09/02/2017 NORBERTO BECKER Primary NORBERTO BECKER Kevin [id number] [place] Insurance:PARAMOUNT MCKOWNDOB: [facility] [id number] Hospital [address]Wcz: [phone]) Number: Repository [phone] () [id number] Date:8007-84-91DF [address] [place] [id number]: 09/02/2017 Secondary NOT GIVENUNK [place] Insurance:SELF PAY [facility] Number: Effective Repository Date:2017-09-02 08/11/2017 NORBERTO BECKER Primary NORBERTO BECKER [place] [id number] [place] Insurance:PARAMOUNT MCKOWNDOB: [facility] [id number] Hospital [address]Efu: [phone]) Number: Repository [phone] () [id number] Date:[id number] [address] [address]XW: 08/11/2017 Secondary NOT GIVENUNK Kevin Insurance:SELF PAY [facility] Number: Effective Repository Date:2017-08-11 08/11/2017 NORBERTO L EUGENIO Primary NORBERTO L EUGENIO Kevin [id number] [place] Insurance:PARAMOUNT MCKOWNDOB: [facility] [id number] Hospital [address]Oco: [phone]) Number: Repository [phone] () [id number] Date:3648-66-41GZ [address] [address]UH: 08/11/2017 Secondary NOT GIVENUNK [place] Insurance:SELF PAY [facility] Number: Effective Repository Date:2017-08-05 08/01/2017 Primary [facility]EC[facility]ER [facility] Insurance:ParamountPo MCKOWNDOB: [place] [facility] Number: [id number] [id number] [place], Repository Date:[facility] [address]Djb: [facility] [place] [place] () [address]HT: 07/30/2017 NORBERTO L EUGENIO Primary NORBERTO L EUGENIO Kevin [id number] [place] Insurance:PARAMOUNT MCKOWNDOB: [facility] [id number] Hospital [address]Jaf: [phone]) Number: Repository [phone] () [id number] Date:9325-14-51KP [address] [address]IK: 07/30/2017 Secondary NOT GIVENUNK Kevin Insurance:SELF PAY [facility] Number: Effective Repository Date:2017-07-30 07/28/2017 Primary NORBERTO BECKER [facility] Insurance:ParamountPo MCKOWNDOB: [place] [facility] Number: [id number] [facility] [id number] Repository Date:[place] [address]Daf: Name:[facility] () [address]QQ: 07/07/2017 Primary NORBERTO BECKER [facility] Insurance:ParamountPo MCKOWNDOB: [place] Number: [id number] [facility] [id number], Repository Date:[place] [address]Law: Name:[facility] [place] () [address]ZX:
== END 2018-05-25 19:00 | disposition home or self-care (01) ==
LOC: OT 14:23
PROVIDERS: Referring Provider Orthopaedic Surgery; Visit Provider Orthopaedic Surgery
DX: M54.5 Low back pain (principal)
CPT/HCPCS: 97750

== ENCOUNTER → 2018-08-27 10:53 | Outpatient (CLI) | payer MEDICAID, SELFPAY ==
--- NOTE | 2018-08-27 10:55 | RAD_ITS ---
STUDY: X-RAY - LEFT KNEE REASON FOR EXAM: Pain, fall. TECHNIQUE: 4 view(s) of the knee. COMPARISON: Radiographs 01/27/2018. FINDINGS: There is progressive healing of an osteotomy of the distal femur with intact orthopedic hardware. Normal visualized proximal tibia and fibula. Normal proximal tibiofibular articulation. Normal medial femorotibial compartment. 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 There is a marginal osteophyte of the lateral patella. There is a small joint effusion. RAD/Knee 4 or More Views IMPRESSION: Healing distal femoral osteotomy. Arthrosis of the lateral femorotibial compartment. Small joint effusion. Electronically Signed: Maco Saldaña MD at 15:07 EDT Tel , Service support ,
== END ==
PROVIDERS: Referring Provider Physician Assistant; Visit Provider Physician Assistant
DX: M25.562 Pain in left knee (principal)
CPT/HCPCS: 73564

== ENCOUNTER → 2018-10-05 | Outpatient (CLI) | payer MEDICAID, SELFPAY ==
[2018-10-05 13:05] VITALS: BMI 36.1
--- NOTE | 2018-10-05 13:29 | RAD_ITS ---
STUDY: X-RAY - RIGHT SHOULDER REASON FOR EXAM: Female, 43 years old. Pain TECHNIQUE: 4 view(s) of the shoulder. COMPARISON: 04/28/2017 FINDINGS: There is no evidence of fracture or dislocation. There are no significant degenerative changes. There are no radiodense foreign bodies. RAD/Shoulder min 2 Views IMPRESSION: No fracture or dislocation. Electronically Signed: Kris Butcher, at 19:33 EDT Tel , Service support ,
== END | disposition home or self-care (01) ==
LOC: HPRAD 13:28
PROVIDERS: Referring Provider Physician Assistant; Visit Provider Physician Assistant
DX: M25.511 Pain in right shoulder (principal)
CPT/HCPCS: 73030

== ENCOUNTER → 2019-01-22 | Outpatient (CLI) | payer MEDICAID, SELFPAY ==
[2018-12-30 08:39] VITALS: BMI 36.1
--- NOTE | 2019-01-22 11:04 | MRI_ITS ---
STUDY: MRI RIGHT SHOULDER REASON FOR EXAM: Female, 43 years old. Right shoulder pain TECHNIQUE: Standardized fat and water weighted pulse sequences were obtained in all 3 orthogonal planes. COMPARISON: Shoulder x-ray 10/05/2018. FINDINGS: There is supraspinatus tendinosis with tendon thickening, and a small intrasubstance tear near the tendinous insertion. Normal infraspinatus tendon. Normal subscapularis tendon. Normal teres minor tendon. Normal supraspinatus muscle. Normal infraspinatus muscle. Normal subscapularis muscle. Normal teres minor muscle. Normal glenohumeral articulation. Normal humeral head and visualized proximal humerus. Normal biceps labral complex. Normal intracapsular long biceps tendon. Normal labrum. There is thickening of the inferior capsule. Normal capsulo- ligamentous complex. Normal rotator interval. There is mild osteoarthritis of the acromioclavicular articulation. There is a Type II morphology (curved), with a neutral orientation. There is no subacromial-subdeltoid bursal fluid. Normal visualized coracohumeral and coracoacromial ligaments. Normal quadrilateral space. Normal axillary space. Normal deltoid muscle. Normal trapezius muscle. MRI/Upper Ext Joint Only(Routine) IMPRESSION: There is evidence of adhesive capsulitis. Supraspinatus tendinosis and small intrasubstance tear near the tendinous insertion. Electronically Signed: Yola Andrea, at 14:25 EDT Tel , Service support ,
== END | disposition home or self-care (01) ==
LOC: MRI 11:02
PROVIDERS: Referring Provider Orthopaedic Surgery; Visit Provider Orthopaedic Surgery
DX: M75.21 Bicipital tendinitis, right shoulder (principal); M75.81 Other shoulder lesions, right shoulder
CPT/HCPCS: 73221

== ENCOUNTER → 2019-08-05 10:07 | Outpatient (CLI) | payer MEDICAID, SELFPAY ==
[2019-07-20 10:40] VITALS: BMI 36.1
--- NOTE | 2019-08-05 10:08 | MRI_ITS ---
STUDY: MRI LEFT HIP REASON FOR EXAM: Left hip pain for 15 years, iliotibial band release in 2017, evaluate for bursitis. TECHNIQUE: Standardized fat and water weighted pulse sequences were obtained in all 3 orthogonal planes. COMPARISON: Radiographs 05/07/2018. FINDINGS: Normal hip joint without articular joint space narrowing. Normal acetabulum. Normal labrum. Normal femoral head. Normal femoral neck and intratrochanteric region. Normal gluteus minimus, medius and iliopsoas tendons and distal insertions. There is no trochanteric, iliopsoas or iliopectineal bursitis. Normal superior and inferior pubic rami. Normal pubic symphysis. Normal ischial tuberosity. Normal origin of the hamstring tendons. Normal visualized iliac wing, sacroiliac joint, and sacral ala. Normal visualized soft tissue structures of the pelvis. There is no demonstrated inflammation adjacent to the iliotibial band. MRI/Lower Ext Joint Only (Routine) IMPRESSION: Unremarkable MRI of the left hip without demonstrated bursitis. Electronically Signed: Maco Saldaña MD at 11:44 EST Tel , Service support ,
== END ==
PROVIDERS: Referring Provider Orthopaedic Surgery; Visit Provider Orthopaedic Surgery
DX: M70.62 Trochanteric bursitis, left hip (principal)
CPT/HCPCS: 73721

== ENCOUNTER → 2019-12-21 14:56 | Outpatient (CLI) | payer MEDICAID, SELFPAY ==
[2019-08-19 10:27] VITALS: BMI 36.1
--- NOTE | 2019-12-21 14:57 | RAD_ITS ---
STUDY: X-RAY - LEFT KNEE REASON FOR EXAM: Pain after falling. TECHNIQUE: 4 view(s) of the knee. COMPARISON: Radiographs 08/27/2018. FINDINGS: There is a healed osteotomy of the distal femur with intact orthopedic hardware. Normal visualized proximal tibia and fibula. Normal proximal tibiofibular articulation. Normal medial femorotibial compartment. 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 There is a small marginal osteophyte of the lateral patella. There is a small joint effusion. RAD/Knee 4 or More Views IMPRESSION: Arthrosis of the lateral femorotibial compartment. Small joint effusion. Osteotomy of the distal femur with intact orthopedic hardware. Electronically Signed: Maco Saldaña MD at 7:49 EDT Tel , Service support ,
== END ==
PROVIDERS: Referring Provider Orthopaedic Surgery; Visit Provider Orthopaedic Surgery
DX: M25.562 Pain in left knee (principal)
CPT/HCPCS: 73564

== ENCOUNTER → 2020-01-31 13:51 | Outpatient (CLI) | payer MEDICAID, SELFPAY ==
[2019-12-21 14:58] VITALS: BMI 36.1
--- NOTE | 2020-01-31 13:52 | RAD_ITS ---
STUDY: X-RAY - CERVICAL SPINE REASON FOR EXAM: Female, 44 years old. PINCHED NERVE PER PT. NUMBNESS RIGHT SIDE TECHNIQUE: 5 view(s) of the cervical spine were obtained. COMPARISON: None FINDINGS: Normal anterior atlantoaxial articulation. Normal odontoid process. Normal cervical lordosis. Normal vertebral bodies and endplates. Normal disc space heights. Normal visualized intervertebral neuroforamina. The soft tissue structures are unremarkable. RAD/Cerv Spine 4 or 5 Views IMPRESSION: Normal x-ray examination of the visualized cervical spine. Electronically Signed: Sourav Lerma MD at 14:31 EDT Tel , Service support ,
== END ==
PROVIDERS: Referring Provider Physician Assistant; Visit Provider Physician Assistant
DX: M79.601 Pain in right arm (principal)
CPT/HCPCS: 72050